=== PATIENT | female | born 1950 | race Caucasian/White ===

== ENCOUNTER 2021-01-14 09:09 | Outpatient (CLI) | payer MEDICARE, OTHER, SELFPAY ==
--- NOTE | 2021-01-14 09:21 | MM_ITS ---
WS: [id number] BILATERAL DIGITAL SCREENING MAMMOGRAPHY WITH CAD CLINICAL INFORMATION: SCREENING HISTORY: Screening mammogram. No current complaints. COMPARISON: and additional mammograms dating back to 2015 TECHNIQUE: Bilateral CC and MLO views. FINDINGS: Scattered fibroglandular densities bilaterally. Stable lobulated density in the right inner breast po sterior depth is unchanged over multiple prior exams dating back to 2014. No suspicious focal mass, a symmetry, calcifications, or architectural distortion. No evidence of malignancy. Punctate calcificat ions. MM/[place] [id number] IMPRESSION: BI-RADS: 2-Benign FOLLOW UP: 1 Year Follow-up Recommend return to annual screening mammography.
== END 2021-01-14 09:10 | disposition home or self-care (01) ==
PROVIDERS: PCP Registered Nurse; Visit Provider Registered Nurse
DX: Z12.31 Encounter for screening mammogram for malignant neoplasm of breast (principal)
CPT/HCPCS: 77067

== ENCOUNTER → 2021-06-22 09:06 | Outpatient (BNVA) | payer MEDICARE, OTHER, SELFPAY | PROVIDERS: PCP Registered Nurse; Visit Provider Registered Nurse | DX: E78.2 Mixed hyperlipidemia (principal) | CPT/HCPCS: 80053; 80061; 85025 ==

== ENCOUNTER → 2021-08-31 08:33 | Outpatient (BNVA) | payer MEDICARE, OTHER, SELFPAY | PROVIDERS: PCP Registered Nurse; Visit Provider Registered Nurse | DX: N39.0 Urinary tract infection, site not specified (principal); R31.9 Hematuria, unspecified | CPT/HCPCS: 81000; 87077; 87086; 87184 ==

== ENCOUNTER 2022-06-09 14:46 | Outpatient (CLI) | payer MEDICARE, OTHER, SELFPAY ==
--- NOTE | 2022-06-09 15:15 | USCV_ITS ---
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 Technologist: YESI [place] [facility] [place]: Atrial fibrillation BP: 122 / 65 HR: 69 Rhythm: Sinus Technical Quality: adequate MEASUREMENTS (Male / Female) Normal Values 2D ECHO LV Diastolic Diameter PLAX 4.4 cm 4.2 - 5.9 / 3.9 - 5.3 cm LV Systolic Diameter PLAX 3.5 cm IVS Diastolic Thickness 0.9 cm 0.6 - 1.0 / 0.6 - 0.9 cm IVS Systolic Thickness 1.4 cm LVPW Diastolic Thickness 1.2 cm 0.6 - 1.0 / 0.6 - 0.9 cm LVPW Systolic Thickness 1.3 cm LVOT Diameter 2.0 cm LV Ejection Fraction 2D Teich 42.4 % LV Ejection Fraction MOD 2C 73.4 % LV Ejection Fraction 2C AL 73.5 % LA Diameter 2.8 cm RA Width 2.8 cm RA Height 4.4 cm Aorta at Sinotubular Diameter 2.6 cm M-MODE MV E Point Septal Separation 0.3 cm DOPPLER AV Peak Velocity 166.0 cm/s LVOT Peak Velocity 138.0 cm/s AV Area Cont Eq vti 2.5 cm squared AV Area Cont Eq pk 2.7 cm squared MV Peak Velocity 94.0 cm/s MV Area PHT 3.3 cm squared Mitral E to A Ratio 1.0 MV E' Velocity 49.0 cm/s Mitral E to MV E' Ratio 13.3 Mitral E to LV E' Lateral Ratio 18.9 Mitral E to LV E' Septal Ratio 10.2 TR Peak Velocity 277.0 cm/s TR Peak Gradient 30.7 mmHg Right Atrial Pressure 5.0 mmHg Pulmonary Artery Systolic Pressu 35.7 mmHg PV Peak Velocity 105.0 cm/s FINDINGS Left Ventricle Normal left ventricular size, systolic function and wall thickness, with no regional wall motion abnormalities. Left ventricular ejection fraction is estimated at 70 %. Normal diastolic function. Right Ventricle Normal right ventricular size and systolic function. Right ventricular systolic pressure 35.7 mmHg. Right Atrium Normal right atrial size. Left Atrium Normal left atrial size. Mitral Valve Mild mitral annular calcification. Mildly thickened mitral valve. No mitral valve stenosis. No mitral valve regurgitation. Aortic Valve Structurally normal trileaflet aortic valve. No aortic valve stenosis. Mild aortic valve regurgitation. Tricuspid Valve Structurally normal tricuspid valve. Trace tricuspid valve regurgitation. Pulmonic Valve Pulmonic valve not well visualized. Pericardium No pericardial effusion. Aorta Normal size aortic root and proximal ascending aorta. IVC Inferior vena cava not visualized. CONCLUSIONS 1. Normal left ventricular size, systolic function and wall thickness, with no regional wall motion abnormalities. Left ventricular ejection fraction is estimated at 70 %. Normal diastolic function. 2. Mild aortic valve regurgitation. 3. Upper normal pulmonary artery pressure. 4. No prior similar studies to compare. Mendy Lindsey MD (Electronically Signed) Final Date: 10 June 2022 08:19 S
== END 2022-06-09 14:47 | disposition home or self-care (01) ==
PROVIDERS: PCP Registered Nurse; Visit Provider Registered Nurse
DX: I48.91 Unspecified atrial fibrillation (principal); I08.3 Combined rheumatic disorders of mitral, aortic and tricuspid valves
CPT/HCPCS: 93306

== ENCOUNTER → 2022-08-29 15:41 | Outpatient (BNVA) | payer MEDICARE, OTHER, SELFPAY | PROVIDERS: PCP Registered Nurse; Visit Provider Registered Nurse | DX: R10.9 Unspecified abdominal pain (principal); R07.81 Pleurodynia; G89.29 Other chronic pain | CPT/HCPCS: 81000 ==

== ENCOUNTER → 2023-02-07 10:14 | Outpatient (BNVA) | payer MEDICARE, OTHER, SELFPAY | PROVIDERS: PCP Registered Nurse; Referring Provider Registered Nurse; Visit Provider Orthopaedic Surgery | DX: M77.8 Other enthesopathies, not elsewhere classified (principal) | CPT/HCPCS: 20610; 73030; 99203; J0702; J3490 ==

== ENCOUNTER → 2023-03-20 14:17 | Outpatient (BNVA) | payer MEDICARE, OTHER, SELFPAY | PROVIDERS: PCP Registered Nurse; Visit Provider Internal Medicine | DX: R07.9 Chest pain, unspecified (principal); J45.909 Unspecified asthma, uncomplicated; I48.91 Unspecified atrial fibrillation; F17.210 Nicotine dependence, cigarettes, uncomplicated | CPT/HCPCS: 93005; 99204 ==

== ENCOUNTER 2023-04-06 07:55 | Outpatient (CLI) | payer MEDICARE, OTHER, SELFPAY ==
[2023-04-06 08:15] VITALS: BMI 19.8
--- NOTE | 2023-04-06 08:16 | NMCV_ITS ---
NM holden perf SPECT r/s* [id number] Hyacinth Hill Age: 72 Gender: F : 1950 Exam Date: 04/06/2023 09:27 Ordering Phys: Kaushal Ngo M.D ([email or web address]) Technologist: SANDER King Exam Location: [facility] Indications: SHORTNESS OF BREATH, CHEST PAIN STRESS TEST Please [facility] IMAGE PROTOCOL Rest/Stress 1 Lexiscan Day Radiopharmaceutical Dose (mCi) Administration Site Administered by Rest: Tc-99m 10.6 IV Jamie Pittman, DISTRIBUTOR CLEANER Sestamibi Stress:Tc-99m 32.6 IV Jamie Pittman, DISTRIBUTOR CLEANER Sestamibi Rest: 06-Apr-2023 60 Discovery 630 Stress: 06-Apr-2023 30 Discovery 630 0.4mg Lexiscan. Images obtained in supine and prone position. SPECT RESULTS Technical Quality: Good Raw Data Analysis: Normal Image Corrections: No attenuation or motion correction applied Summed Stress Score: 4 Summed Rest Score: 8 Summed Difference Score: 0 PERFUSION FINDINGS SPECT images demonstrate homogeneous tracer distribution throughout the myocardium. FUNCTIONAL RESULTS (calculated via Gated SPECT) Stress Image LV EF (%): 82 Stress EDV (mL):71 TID: 1.21 Stress ESV (mL):13 FUNCTIONAL FINDINGS: There is normal left ventricular systolic function. IMPRESSIONS 1. Normal myocardial perfusion imaging with no evidence of ischemia 2. LV systolic function is normal 3. TID ratio is elevated. Kaushal Ngo MD (Electronically Signed) Final Date: 09 April 2023 17:54 S
--- NOTE | 2023-04-06 08:16 | ECG_ITS ---
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 Interpretive Statements NAME OF STUDY: LEXISCAN SESTAMIBI STRESS TEST INDICATION: [Chest Pain; Shortness of Breath, ] Procedure: At the baseline, the blood pressure was 146/61 mmHg with a heart rate of 68 bpm. The electrocardiogram showed normal sinus rhythm, normal axis with normal ST and T's. The Lexiscan was infused over a period of 20 seconds. A total of 0.4 mg of Lexiscan was infused. The stress phase was continued for a total of 5 minutes. Heart rate was at the end of stress phase was 81 bpm and a blood pressure of 136/57 mmHg. The EKG at the peak infusion revealed normal sinus rhythm with no significant ST-T wave changes. Sestamibi was injected 20 seconds after the Lexiscan infusion. Blood pressure at the end of recovery phase was 141/55 mmHg with a heart rate of 79 bpm. Conclusion: 1. Normal EKG response to Lexiscan infusion 2. No Lexiscan induced chest pain or cardiac arrhythmia. 3. Normal blood pressure and heart rate response. 4. Sestamibi/sestamibi perfusion scan pending; see separate report. Electronically Signed On 04-13-2023 15:57:01 CDT by Kaushal Ngo M.D. [email or web address] [id number]
[2023-04-06] MEDS: regadenoson 0.4 Mg/5 ml Syringe IVP (10:04)
[2023-04-06 10:22] VITALS: BP 141/55; PULSE 75
== END 2023-04-06 07:56 | disposition home or self-care (01) ==
LOC: CDL 07:56
PROVIDERS: PCP Registered Nurse; Visit Provider Internal Medicine
DX: R06.02 Shortness of breath (principal); R07.9 Chest pain, unspecified
CPT/HCPCS: 36415; 78452; 93017; 96374; A9500; J2785

== ENCOUNTER → 2023-04-16 10:26 | Outpatient (BNVA) | payer MEDICARE, OTHER, SELFPAY | PROVIDERS: PCP Registered Nurse; Visit Provider Registered Nurse | DX: Z00.00 Encounter for general adult medical examination without abnormal findings (principal); E78.2 Mixed hyperlipidemia; Z12.39 Encounter for other screening for malignant neoplasm of breast; Z12.11 Encounter for screening for malignant neoplasm of colon; M81.0 Age-related osteoporosis without current pathological fracture; Z12.2 Encounter for screening for malignant neoplasm of respiratory organs; Z71.85 Encounter for immunization safety counseling | CPT/HCPCS: 80053; 80061; 85025 ==

== ENCOUNTER 2023-04-27 12:10 | Outpatient (CLI) | payer MEDICARE, OTHER, SELFPAY ==
--- NOTE | 2023-04-27 12:30 | MM_ITS ---
WS: [id number] BILATERAL SCREENING DIGITAL TOMOSYNTHESIS MAMMOGRAM WITH CAD HISTORY: Z12.39 - Encounter for other screening for malignant neoplasm... COMPARISON: 01/14/2021, 09/12/2017 Bilateral CC and MLO views with tomosynthesis and synthetic mammography submitted. Computer aided det ection analyzed. Breast composition: There are scattered areas of fibroglandular density. No suspicious masses, microc alcifications or architectural distortion. Long-term stability lobulated soft tissue mass 3:00 RIGHT breast. Benign calcifications in each breast. MM/[place] [id number] IMPRESSION: BI-RADS: 2-Benign FOLLOW UP: 1 Year Follow-up
--- NOTE | 2023-04-27 13:15 | CT_ITS ---
WS: [id number] LDCT LUNG CANCER SCREENING HISTORY: Lung screening. TECHNIQUE: Axial imaging performed from the apices to 1 cm below the costophrenic angles. Coronal and sagittal reformats are submitted with axial MIP series. All CT scans at [facility] use at least one of these dose optimization techniques: automated exposure control; mA and/or kV adjustment per patient size (includes targeted exams where dose is matched to clinical indication); or iterativ e reconstruction. DLP: 37.01 mGy.cm DIvol: Mean CTDIvol: 0.60 (mGy) COMPARISON: None available. Diagnostic quality: Satisfactory Lungs: Mild dependent changes at the bases. 3 mm subpleural nodule RIGHT lung base. No mass or nodule . No endobronchial lesions. Heart: Normal size heart with no pericardial effusion.. Other findings: Mild atherosclerosis aorta. Normal size pulmonary artery. Low-attenuation mass in the LEFT lobe of liver measures 2.0 x 1.2 cm. No adrenal mass. No destructive bone lesions. CT/CT lung screening [id number] IMPRESSION: LUNG-RADS: 1S-Negative with Significant Findings FOLLOW UP: 12 Month: Continue annual screening with LDCT OTHER FINDINGS (S MODIFIER): Indeterminate low-attenuation mass LEFT lobe of th e liver measures 2.0 x 1.2 cm. Differential includes cyst, hemangioma and liver lesion. Recommend follow-up CT abdomen with IV contrast.
--- NOTE | 2023-04-27 14:00 | XR_ITS ---
WS: [id number] DEXA (DUAL ENERGY X-RAY ABSORPTIOMETRY) Bone mineral density was performed using a [email or web address] machine. HISTORY: M81.0 - Age-related osteoporosis without current pathology... COMPARISON: None available. Lumbar spine BMD (L1-L4): 1.147 g/cm2 T score: -0.3 Z score: 1.9 Total hip BMD: Left: 0.755 g/cm2. T score: -2.0 Z score: 0.0 Right: 0.788 g/cm2. T score: -1.7 Z score: 0.3 10 year probability of a major osteoporotic fracture is 23.9%. Moderate LEFT curvature lumbar spine. XR/XR DEXA axial skeleton* [id number] IMPRESSION: OSTEOPENIA based upon the WHO classification for females.
== END 2023-04-27 12:11 | disposition home or self-care (01) ==
PROVIDERS: PCP Registered Nurse; Visit Provider Registered Nurse
DX: Z00.00 Encounter for general adult medical examination without abnormal findings (principal); M81.0 Age-related osteoporosis without current pathological fracture; Z12.31 Encounter for screening mammogram for malignant neoplasm of breast; Z12.2 Encounter for screening for malignant neoplasm of respiratory organs; F17.210 Nicotine dependence, cigarettes, uncomplicated
CPT/HCPCS: 71271; 77063; 77067; 77080

== ENCOUNTER 2023-05-08 09:15 | Outpatient (CLI) | payer MEDICARE, OTHER, SELFPAY ==
--- NOTE | 2023-05-08 09:30 | CTR_ITS ---
PROCEDURE INFORMATION: Exam: CT Abdomen With Contrast Exam date and time: 05/08/2023 9:37 AM Age: 72 years old Clinical indication: Condition or disease; Other: Hepatomegaly; Additional info: R16.0 - hepatomegaly, not elsewhere classified TECHNIQUE: Imaging protocol: Computed tomography of the abdomen with contrast. Radiation optimization: All CT scans at this facility use at least one of these dose optimization techniques: automated exposure control; mA and/or kV adjustment per patient size (includes targeted exams where dose is matched to clinical indication); or iterative reconstruction. Contrast material: OMNI 350; Contrast volume: 95 ml; Contrast route: INTRAVENOUS (IV); REPORTING DATA: Count of CT and Cardiac NM exams in prior 12 months: This patient has received 2 known CTs and 0 known cardiac nuclear medicine studies in the 12 months prior to the current study. COMPARISON: CT lung screening [id number] 04/27/2023 12:31 PM RADIATION DOSE METRICS: Total DLP (mGy-cm): 606.79 FINDINGS: Lungs: Mild bibasilar linear scarring versus atelectasis. Stable sub 6 mm pulmonary micronodules at the subpleural right lower lobe. Diaphragm: Small hiatal hernia. Liver: Elongated right lobe may be on the basis of Reidel morphology. 2.2 cm long bilobed nonenhancing fluid density simple left hepatic cyst versus 2 adjacent simple cysts. Gallbladder and bile ducts: Normal. No calcified stones. No ductal dilation. Pancreas: Normal without ductal dilatation. Spleen: Normal. Adrenal glands: Normal. No mass. Kidneys and ureters: Right renal cysts are present, as well as other bilateral subcentimeter hypodensities which are too small to characterize. Otherwise unremarkable. Stomach and bowel: Visualized stomach and bowel are unremarkable. No obstruction. No mucosal thickening. Intraperitoneal space: Unremarkable. No free air. No significant fluid collection. Vasculature: Moderate aortoiliac atherosclerotic calcification without aortic aneurysm. Lymph nodes: Unremarkable. No enlarged lymph nodes. Bones/joints: No acute fracture. Levoconvex lumbar spine curvature. Degenerative changes along the spine and imaged right sacroiliac joint, moderate at L4-5 on the right and L5-S1 on the left. Mild left lateral subluxation of L4 on L5 and milder right lateral subluxation of L2 on L3. Soft tissues: Unremarkable. CT/CT abdomen w con* [id number] IMPRESSION: 1. Bilobed simple cyst versus 2 adjacent simple cysts correspond to the left liver finding of concern. 2. Atherosclerosis.
[2023-05-08] MEDS: iohexol 350 mg/mL 500 mL Btl (per mL) IV (09:43)
== END 2023-05-08 09:16 | disposition home or self-care (01) ==
LOC: RAD 09:16
PROVIDERS: PCP Registered Nurse; Visit Provider Registered Nurse
DX: R16.0 Hepatomegaly, not elsewhere classified (principal); K76.89 Other specified diseases of liver; I70.0 Atherosclerosis of aorta
CPT/HCPCS: 74160; Q9967

== ENCOUNTER → 2023-05-25 10:17 | Outpatient (BNVA) | payer MEDICARE, OTHER, SELFPAY | PROVIDERS: PCP Registered Nurse; Visit Provider Internal Medicine | DX: I48.91 Unspecified atrial fibrillation (principal); Z79.01 Long term (current) use of anticoagulants | CPT/HCPCS: 99214 ==

== ENCOUNTER → 2023-10-26 13:57 | Outpatient (BNVA) | payer MEDICARE, OTHER, SELFPAY | PROVIDERS: PCP Registered Nurse; Visit Provider Registered Nurse | DX: J06.9 Acute upper respiratory infection, unspecified (principal) | CPT/HCPCS: 87400; 87426 ==

== ENCOUNTER → 2023-12-18 08:18 | Outpatient (BNVA) | payer MEDICARE, OTHER, SELFPAY | PROVIDERS: PCP Registered Nurse; Visit Provider Nurse Practitioner Family | DX: I48.0 Paroxysmal atrial fibrillation (principal); I10 Essential (primary) hypertension; F17.210 Nicotine dependence, cigarettes, uncomplicated; Z79.01 Long term (current) use of anticoagulants | CPT/HCPCS: 99214 ==

== ENCOUNTER 2023-12-28 08:51 | Outpatient (CLI) | payer MEDICARE, OTHER, SELFPAY ==
--- NOTE | 2023-12-28 09:30 | USCV_ITS ---
Hyacinth Hill Age: 73 Gender: F : 1950 Exam Date: 12/28/2023 09:31 Ordering Phys: Jeanne Duncan Technologist: CT Exam Location: [facility] – [place] Indication: stenosis Risk Factors: Previous Vascular Surgery: Right Brachial BP: / Left Brachial BP: / Right Left Velocity (cm/s) Spectral Plaque Velocity (cm/s) Spectral Plaque Syst/Diast Broadening Syst/Diast Broadening 71.50/ Prox CCA 82.00 / 65.90/ Mid CCA 73.30 / 72.50/ Distal CCA 83.50 / 55.50/ Prox ICA 96.40 / 109.80/ Mid ICA 88.20 / 61.00/ Distal ICA 84.70 / 85.70 ECA 151.90 Marked 1.50 ICA/CCA 1.20 Antegrade Vertebral Antegrade 52.80/ cm/s 26.20/ cm/s Bi Subclavian Tri 209.0 134.6 0 0 CONCLUSIONS Right ICA stenosis <50%. Moderate atheromatous plaque right carotid bulb/ICA. Left ICA stenosis <50%. Moderate atheromatous plaque left carotid bulb/ICA. Normal antegrade Doppler flow noted in the right vertebral artery. Normal antegrade Doppler flow noted in the left vertebral artery. Rashaad Schilling MD (Electronically Signed) Final Date: 28 December 2023 14:37 S
== END 2023-12-28 08:52 | disposition home or self-care (01) ==
LOC: RAD 08:51
PROVIDERS: PCP Registered Nurse; Visit Provider Nurse Practitioner Family
DX: I65.23 Occlusion and stenosis of bilateral carotid arteries (principal)
CPT/HCPCS: 93880

== ENCOUNTER → 2024-03-18 11:20 | Outpatient (BNVA) | payer MEDICARE, OTHER, SELFPAY | PROVIDERS: PCP Registered Nurse; Visit Provider Registered Nurse | DX: N39.0 Urinary tract infection, site not specified (principal); I48.0 Paroxysmal atrial fibrillation; I48.91 Unspecified atrial fibrillation; I10 Essential (primary) hypertension; E55.9 Vitamin D deficiency, unspecified; E53.8 Deficiency of other specified B group vitamins; Z79.899 Other long term (current) drug therapy | CPT/HCPCS: 80053; 80061; 81000; 82306; 82607; 85025; 87077; 87086; 87184; 93005 ==

== ENCOUNTER → 2024-05-27 10:57 | Outpatient (BNVA) | payer MEDICARE, OTHER, SELFPAY | PROVIDERS: PCP Registered Nurse; Visit Provider Internal Medicine Cardiovascular Disease | DX: E78.2 Mixed hyperlipidemia (principal); I48.0 Paroxysmal atrial fibrillation; I10 Essential (primary) hypertension; Z79.01 Long term (current) use of anticoagulants; Z87.891 Personal history of nicotine dependence | CPT/HCPCS: 99214 ==

== ENCOUNTER 2024-06-06 02:31 | Inpatient (IN) | payer MEDICARE, OTHER, SELFPAY ==
[2024-06-06] VITALS (33 sets, daily range): BP systolic 81–191; BP diastolic 31–126; PULSE 50–89; RESP 14–26; TEMP 35.7–37.4; O2SAT 83–100; BMI 24.3; BMI 23.1
--- NOTE | 2024-06-06 02:35 | CTR_ITS ---
PROCEDURE INFORMATION: Exam: CT Head Without Contrast Exam date and time: 06/06/2024 2:34 AM Age: 73 years old Clinical indication: Altered mental status/memory loss and weakness, extremity; Additional info: Encephalopathy, altered mental status TECHNIQUE: Imaging protocol: Computed tomography of the head without contrast. Radiation optimization: All CT scans at this facility use at least one of these dose optimization techniques: automated exposure control; mA and/or kV adjustment per patient size (includes targeted exams where dose is matched to clinical indication); or iterative reconstruction. COMPARISON: No relevant prior studies available. RADIATION DOSE METRICS: Total DLP (mGy-cm): 1072.52 FINDINGS: Brain: Normal. No hemorrhage. Unremarkable white matter. No mass effect. Cerebral ventricles: No ventriculomegaly. Paranasal sinuses: Visualized sinuses are unremarkable. No fluid levels. Mastoid air cells: Visualized mastoid air cells are well aerated. Bones: Unremarkable. No acute fracture. Soft tissues: Unremarkable. CT/CT head wo con* [id number] IMPRESSION: No acute intracranial abnormality.
--- NOTE | 2024-06-06 02:35 | XRR_ITS ---
PROCEDURE INFORMATION: Exam: XR Chest Exam date and time: 06/06/2024 5:31 AM Age: 73 years old Clinical indication: Dyspnea; Additional info: Weakness TECHNIQUE: Imaging protocol: Radiologic exam of the chest. Views: 1 view. COMPARISON: CT lung screening [id number] 04/27/2023 12:31 PM FINDINGS: Lungs: There may be mild central vascular congestion. No focal consolidation is appreciated. Pleural spaces: Unremarkable. No pleural effusion. No pneumothorax. Heart/Mediastinum: The heart is slightly enlarged. There is calcified plaque involving the aorta. Bones/joints: Unremarkable. XR/XR chest 1V portable [id number] IMPRESSION: 1. Mild cardiomegaly with possible mild vascular congestion. No focal consolidation identified.
--- NOTE | 2024-06-06 02:36 | ECG_ITS ---
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 Measurements Intervals Supai Rate: 79 P: 68 CT: 188 QRS: 33 QRSD: 120 T: 21 QT: 421 QTc: 485 Interpretive Statements SINUS RHYTHM WITH OCCASIONAL SUPRAVENTRICULAR PREMATURE COMPLEXES MODERATE INTRAVENTRICULAR CONDUCTION DELAY [110+ ms QRS DURATION] Compared to ECG 06/06/2024 02:44:56 Intraventricular conduction delay now present First degree AV block no longer present Incomplete right bundle-branch block no longer present Electronically Signed On 06-06-2024 7:51:32 CDT by Kaushal Ngo M.D. [id number]
--- NOTE | 2024-06-06 02:43 | ED_ITS ---
HPI - Altered Mental Status 2 General: Chief Complaint: Altered Mental Status Stated Complaint: Resp Distress Time Seen by Provider: 06/06/24 02:35 History of Present Illness: 73-year-old female with a history of atr ial fibrillation, hypertension, hyperlipidemia and anticoagulation who presents to the emergency room after being found unresponsive at home. She gone to bed about 8 PM. Family noted she had gone to the bathroom and seemed normal at about 12:30 AM. Apparently as she was coming back from the bathroom she collapsed over a pet fence in the home. EMS reports that when they got there she was having some sort of posturing motions and is unresponsive to pain. Holding eyes shut. Hypertensive. Related Data Home Medications Medication Instructions Recorded Confirmed tramadol 50 mg tablet 25 - 50 mg PO DAILY PRN 05/27/24 Previous Rx's Medication Instructions Recorded albuterol sulfate 90 mcg/actuation 2 puff inhalation Q6H PRN 06/23/21 aerosol inhaler (ProAir HFA) bronchospasm #6.7 grams pravastatin 40 mg tablet See Rx Instructions .Route 07/02/23 .COMPLEX #90 tabs conjugated estrogens 0.625 mg See Rx Instructions .Route 08/02/23 tablet (Premarin) .COMPLEX #90 tabs levalbuterol HCl 1.25 mg/0.5 mL 1.25 mg (0.5 mL) inhalation Q4H 7 10/26/23 solution for nebulization days #30 ea tiotropium bromide 2.5 See Rx Instructions .Route 01/30/24 mcg/actuation mist for inhalation .COMPLEX #4 grams (Spiriva Respimat) apixaban 5 mg tablet (Eliquis) See Rx Instructions .Route 03/18/24 .COMPLEX #180 tabs cholecalciferol (vitamin D3) 1,250 1,250 mcg PO .WEEKLY 90 days #12 03/20/24 mcg (50,000 unit) capsule caps metoprolol tartrate 25 mg tablet See Rx Instructions .Route 04/03/24 .COMPLEX #90 tabs valsartan 80 mg tablet 80 mg PO DAILY #90 tabs 05/12/24 fenofibrate nanocrystallized 145 See Rx Instructions .Route 05/16/24 mg tablet .COMPLEX #90 tabs flecainide 100 mg tablet 100 mg PO Q12H #180 tabs 05/27/24 Allergies Allergy/AdvReac Type Severity Reaction Status Date / Time No Known Allergies Allergy Verified 05/27/24 11:18 Review of Systems 2 Narrative: Unable to obtain secondary to altered mental status. PFSH ED 2 PFSH: Medical History Anticoagulation adequate with anticoagulant therapy Hypertension Chronic lumbar pain Asthma Hyperlipidemia On hormone replacement therapy Surgical History History of tonsillectomy History of hysterectomy History of tubal ligation 1974 Family History Brother Heart disease Mother Cancer Father Cancer Social History Smoking and tobacco/nicotine status: former use of tobacco/nicotine Alcohol intake: current Alcohol intake frequency: holidays/special occasions only Alcohol type: beer Substance/Drug Use: never Adopted: No Caregiver/support person: No Lives independently: No Household members: spouse Marital status: service: No Current occupational status: retired Physical Exam 2 Narrative: General: Does not respond to painful stimuli. Skin: Warm, dry Head: Normocephalic, atraumatic. Neck: Supple, trachea midline. Eye: Extraocular movements are intact. Ears, nose, mouth and throat: Dry oral mucosa. Cardiovascular: Regular rate and rhythm, Normal peripheral perfusion. She does have some brief pauses. Respiratory: Lungs are clear to auscultation, respirations are non-labored, breath sounds are equal, Symmetrical chest wall expansion. Gastrointestinal: Soft, Non distended, Normal bowel sounds. Musculoskeletal: no deformity. Neurological: Not Alert and oriented, patient is having some posturing type movements. She is writhing in the bed at times. Pupils are equal about 4 mm and reactive to light. She has some slow horizontal nystagmus. Psychiatric: unable to assess. Course 2 Vital Signs: Vital signs: Vital Signs Temperature 96.3 F L 06/06/24 03:07 Pulse Rate 61 06/06/24 05:02 Respiratory Rate 22 H 06/06/24 05:02 Blood Pressure 104/67 06/06/24 05:02 Pulse Oximetry 100 06/06/24 05:02 Oxygen Delivery Me thod Oxymask 06/06/24 05:02 Oxygen Flow Rate 10 08/16/24 05:02 MDM - Altered Mental Status Medical Decision Making Medical decision making: Differential diagnosis for patient with focal neurologic deficit(s) includes but not limited to and based on the above HPI, review of systems and physical exam: ischemic stroke, hemorrhagic stroke and embolic stroke secondary to atrial fibrillation), TIA, Villagomez's palsey, metabolic encephalopathy with previous stroke. Orders placed to evaluate differential diagnosis based on the above differential, HPI and physical exam EKG: Time 2:44 AM. Rate 75. Normal sinus rhythm, No ST-T changes, no ectopy, first degree AV Block, EP Interpretation. This was reviewed and interpreted by myself the ER physician at 2:46 AM Repeat EK a.m. Rate 65. Frequent PVCs/bigeminy. Normal sinus rhythm, No ST-T changes, normal OH & QRS intervals, This was reviewed and interpreted by myself the ER physician at 403 a.m. Frequent PVCs are now present Lab Review: Laboratory results were reviewed and interpreted by myself the emergency room physician. Lab work is fairly unremarkable at this time. Some leukocytosis with a white count of 15,000. Hemoglobin is 11.7. BUN and creatinine are 19 and 1. Alcohol and drug screen are negative. Initial troponin is negative. Urinalysis is negative. CT head: No acute intracranial process. no intracranial hemorrhage, no evidence of infarct. no evidence of acute fracture.This was reviewed and interpreted by myself the ER physician. CTA of the head and neck: Limited study secondary motion artifact. No obvious occlusions are identified. No mass. This was reviewed and interpreted by myself the emergency room physician. I also reviewed the radiology report. I reviewed the patient's medical record. Reexamination: I have reexamined the patient several times. She seems to be more active and moving more. She continues to have some posturing type behaviors. She opens her eyes spontaneously at times. She had some vomiting. She had some bradycardia and bradycardia down into the 30s and required atropine but now has improved. Consultation: I consulted Dr. Eli within the first 25 minutes of patient's presentation as concern for stroke. Patient is on Eliquis so could not receive TNKase. Unclear etiology. She recommends 1 g of Keppra 1000 mL normal saline bolus. Both of which have been given. She will evaluate the patient this morning. Consultation: I spoke with Dr. Phillips who is on-call for the hospitalist service and is admitting the patient to the ICU. He evaluated the patient in the emergency room. Assessment and plan: Metabolic encephalopathy Bradycardia Very difficult to determine what the etiology of this is, but I have concern this may be some sort of brainstem/midline stroke. Also could be a seizure with prolonged postictal state. Also have some concern with her having these long episodes of bradycardia but she could have had some sort of cardiac event and now has hypoxemic ischemic encephalopathy. Even meningitis could be in this differential and Dr. Eli likely will do an LP this morning. ?IV Keppra ? Normal saline bolus ? Patient has required atropine for bradycardia -I discussed the patient with the hospitalist on-call who is admitting the patient. - Discussed findings and plan with patient. Answered any questions. - All laboratory values were reviewed and interpreted personally by myself, the ER physician - All imaging was reviewed and interpreted personally by myself, the ER physician. - Evaluation and treatment of this problem were appropriate in the emergency setting -I spent a total of >60 minutes of critical care time managing the patient, independent of any other practitioner. -The time involved in the performance of separately reportable procedures was not counted towards critical care time. Lab Data 06/06/24 03:02 06/06/24 03:[address] 06/06/24 02:35 IMPRESSION: No acute intracranial abnormality. Head/Neck CTA 06/06/24 03:02 IMPRESSION: No large vessel stenosis or occlusion. IMPRESSION: Limited exam secondary to motion artifact. No obvious occlusion is identified. Recommend repeating exam when patient is better able to hold still. REFERENCES: NASCET CRITERIA. The degree of stenosis in the cervical segment of the internal carotid artery is based on NASCET criteria. Normal is no stenosis. Mild is less than 50% stenosis. Moderate is 50-69% stenosis. Severe is 70% to 99% stenosis. Total occlusion is no detectable patent lumen. Laboratory Results WBC 15.34 10^3/uL (3.29-11.43) H 06/06/24 03:02 RBC 4.01 10^6/uL (3.85-5.65) 06/06/24 03:02 Hgb 11.70 g/dL (11.27-16.99) 06/06/24 03:02 Hct 36.9 % (36-47) 06/06/24 03:02 MCV 92.0 fl (85-98) 06/06/24 03:02 MCH 29.2 pg (27-33) 06/06/24 03:02 MCHC 31.7 g/dL (30-55) 06/06/24 03:02 RDW 13.7 % (12.1-15.1) 06/06/24 03:02 Plt Count 364 10^3/cmm (157-399) 06/06/24 03:02 MPV 11.6 fL (7.4-10.4) H 06/06/24 03:02 Neut % (Auto) 66.0 % 06/06/24 03:02 Lymph % (Auto) 21.2 % 06/06/24 03:02 [place] % (Auto) 10.5 % 06/06/24 03:02 Eos % (Auto) 1.4 % 06/06/24 03:02 Baso % (Auto) 0.5 % 06/06/24 03:02 Neut # (Auto) 10.13 10^3/uL (1.8-7.7) H 06/06/24 03:02 Lymph # (Auto) 3.3 10^3/uL (0.8-4.8) 06/06/24 03:02 [place] # (Auto) 1.6 10^3/uL (0.2-0.9) H 06/06/24 03:02 Eos # (Auto) 0.2 10^3/uL (0.0-0.8) 06/06/24 03:02 Baso # (Auto) 0.1 10^3/uL (0.0-0.1) 06/06/24 03:02 Nucleated RBC % (auto) 0 % 06/06/24 03:02 Nucleated RBCs # 0.0 /100WBC 06/06/24 03:02 PT 14.60 SECONDS (12.1-14.9) 06/06/24 03:02 INR 1.10 (0.8-1.2) 06/06/24 03:02 APTT 25.7 SECONDS (23.9-36.7) 06/06/24 03:02 Specimen Type Arterial 06/06/24 02:45 Sample Site Radial, right 06/06/24 02:45 ABG pH 7.38 (7.35-7.45) 06/06/24 02:45 ABG pCO2 41.2 mmHg (35-45) 06/06/24 02:45 ABG pO2 43.8 mmHg (80.0-100.0) L 06/06/24 02:45 ABG HCO3 24.4 mmol/L (22-26) 06/06/24 02:45 ABG O2 Saturation 73.3 06/06/24 02:45 ABG Base Excess -0.8 mmol/L (-2.0-2.0) 06/06/24 02:45 Compa Test Pos 06/06/24 02:45 A-a O2 Gradient 7.2 mmHg (5-10) 06/06/24 02:45 Hematocrit 36.5 % (37-47) L 06/06/24 02:45 Hgb O2 Saturation 71.9 % (95-100) L 06/06/24 02:45 Carboxyhemoglobin 0.8 %THgb (0.4-20.1) 06/06/24 02:45 Methemoglobin 1.2 % (0.4-1.5) 06/06/24 02:45 Total Hemoglobin 11.9 g/dL (12-16) L 06/06/24 02:45 Sodium 141.0 mmol/L (131-143) 06/06/24 02:45 Potassium 3.9 mmol/L (3.5-5.0) 06/06/24 02:45 Glucose 171.0 mg/dL (70-115) H 06/06/24 02:45 Ionized Calcium 1.3 mmol/L (1.1-1.4) 06/06/24 02:45 O2 Delivery Device Nc 06/06/24 02:45 O2 Liters/Min 4.0 % 06/06/24 02:45 Lockstitch Pocket Setter ID Cl 06/06/24 02:45 Sodium 140 mmol/L (136-145) 06/06/24 03:02 Potassium 4.6 mmol/L (3.5-5.1) 06/06/24 03:02 Chloride 103 mmol/L (98-107) 06/06/24 03:02 Carbon Dioxide 23 mmol/L (22-29) 06/06/24 03:02 Anion Gap 18.6 (5-19) 06/06/24 03:02 BUN 19 mg/dL (8-23) 06/06/24 03:02 Creatinine 1.0 mg/dL (0.5-0.9) H 06/06/24 03:02 GFR Calculation Not Reportable 06/06/24 03:02 Glucose 206 mg/dL (65-115) H 06/06/24 03:02 Calculated Osmolality 298 mOsm/kg (285-295) H 06/06/24 03:02 Lactic Acid 2.8 mmol/L (0.5-2.2) H 06/06/24 03:02 Calcium 9.3 mg/dL (8.5-10.5) 06/06/24 03:02 Total Bilirubin 0.2 mg/dL (0.15-1.2) 06/06/24 03:02 AST 107 U/L (0-32) H 06/06/24 03:02 ALT 57 U/L (0-33) H 06/06/24 03:02 Alkaline Phosphatase 61 U/L (35-105) 06/06/24 03:02 Troponin T Baseline 12 ng/L (0-10) H 06/06/24 03:02 C-Reactive Protein 7.6 mg/L (0.0-4.9) H 06/06/24 03:02 Total Protein 7.7 g/dL (6.6-8.7) 06/06/24 03:02 Albumin 4.2 g/dL (3.5-5.2) 06/06/24 03:02 Globulin 3.5 g/dL (1.3-4.6) 06/06/24 03:02 Urine Color Yellow (Yellow) 06/06/24 03:02 Urine Appearance Clear (CLEAR) 06/06/24 03:02 Urine pH 8.0 (5-7) A 06/06/24 03:02 Ur Specific [place] 1.012 (1.005-1.030) 06/06/24 03:02 Urine Protein 1+ (Negative) A 06/06/24 03:02 Urine Glucose (UA) Negative (Normal) 06/06/24 03:02 Urine Ketones Negative (Negative) 06/06/24 03:02 Urine Blood Negative (Negative) 06/06/24 03:02 Urine Nitrate Negative (Negative) 06/06/24 03:02 Urine Bilirubin Negative (Negative) 06/06/24 03:02 Urine Urobilinogen 1.0 mg/dL (Negative) 06/06/24 03:02 Ur Leukocyte Esterase Negative (Negative) 06/06/24 03:02 Urine RBC 0-2 /hpf (0-2) 06/06/24 03:02 Urine WBC 0-5 /hpf (0-5) 06/06/24 03:02 Ur Squamous Epith Cells 0-5 /hpf (0-5) 06/06/24 03:02 Amorphous Sediment Not Reportable 06/06/24 03:02 Urine Bacteria None seen /hpf (NONE) 06/06/24 03:02 Hyaline Casts 2.87 /lpf 06/06/24 03:02 Urine Opiates Screen Negative ng/mL (Negative) 06/06/24 03:02 Ur Barbiturates Screen Negative ng/mL (Negative) 06/06/24 03:02 Ur Phencyclidine Scrn Negative ng/mL (Negative) 06/06/24 03:02 Ur Amphetamines Screen Negative ng/mL (Negative) 06/06/24 03:02 U Benzodiazepines Scrn Negative ng/mL (Negative) 06/06/24 03:02 Urine Cocaine Screen Negative ng/mL (Negative) 06/06/24 03:02 U Marijuana (THC) Screen Negative ng/mL (Negative) 06/06/24 03:02 Ethyl Alcohol < 10 mg/dL (0-10) 06/06/24 03:02 All radiology interpretation(s) finalized by discharge Discharge Plan Discharge Patient Disposition: Admitted As Inpatient Admit Provider: Jan Phillips Clinical Impression: Acute metabolic encephalopathy, Cerebrovascular event, Bradycardia Condition: Stable Coding Level of Care Code ED [employer] Food Supervisor for Chris Webster
[2024-06-06 02:52] LABS: ABG PCO2 41.2 mmHg (35-45); ABG PH Result 7.38 (7.35-7.45); Alveolar-Arterial Oxygen Gradi 7.2 mmHg (5-10); Arterial Blood Gas Hematocrit 36.5 % (37-47); Base Excess ABG -0.8 mmol/L (-2.0-2.0); Blood Gas Allen Test Pos; Blood Gas Sample Type Arterial; Carboxyhemoglobin 0.8 %THgb (0.4-20.1); HCO3 ABG 24.4 mmol/L (22-26); HGB O2 Sat 71.9 % (95-100); Ionized Calcium Level - ABG 1.3 mmol/L (1.1-1.4); Methemoglobin 1.2 % (0.4-1.5); Oxygen Saturation ABG 73.3; PO2 ABG 43.8 mmHg (80.0-100.0); Potassium Level - ABG 3.9 mmol/L (3.5-5.0); Total Hemoglobin 11.9 g/dL (12-16)
[2024-06-06 02:53] LABS: Blood Gas Operator Identificat CL; Blood Gas Sample Site Radial, right; Oxygen Device NC
--- NOTE | 2024-06-06 03:02 | CTR_ITS ---
PROCEDURE INFORMATION: Exam: CTA Head With Contrast, Arteriography Exam date and time: 06/06/2024 3:23 AM Age: 73 years old Clinical indication: Injury or trauma; Other: Poss stroke, found down; Blunt trauma; Head; Additional info: Possible stroke TECHNIQUE: Imaging protocol: Computed tomographic angiography of the head with contrast. Exam focused on the arteries. 3D rendering (Not supervised by radiologist): MIP and/or 3D reconstructed images were created by the technologist. Radiation optimization: All CT scans at this facility use at least one of these dose optimization techniques: automated exposure control; mA and/or kV adjustment per patient size (includes targeted exams where dose is matched to clinical indication); or iterative reconstruction. Contrast material: OMNI 350; Contrast volume: 100 ml; Contrast route: INTRAVENOUS (IV); COMPARISON: CT head wo con* [id number] 06/06/2024 3:23 AM RADIATION DOSE METRICS: Total DLP (mGy-cm): 378.37 FINDINGS: ANTERIOR CIRCULATION: Right internal carotid artery: Intracranial segment is patent with no significant stenosis. No aneurysm. Right middle cerebral artery: No occlusion or significant stenosis. No aneurysm. Right anterior cerebral artery: No occlusion or significant stenosis. No aneurysm. Left internal carotid artery: Intracranial segment is patent with no significant stenosis. No aneurysm. Left middle cerebral artery: No occlusion or significant stenosis. No aneurysm. Left anterior cerebral artery: No occlusion or significant stenosis. No aneurysm. POSTERIOR CIRCULATION: Right vertebral artery: No occlusion or significant stenosis. No aneurysm. Left vertebral artery: No occlusion or significant stenosis. No aneurysm. Basilar artery: No occlusion or significant stenosis. No aneurysm. Right posterior cerebral artery: No occlusion or significant stenosis. No aneurysm. Left posterior cerebral artery: No occlusion or significant stenosis. No aneurysm. The left posterior cerebral artery is primarily supplied via the anterior circulation. Brain: No definite mass, mass effect, or midline shift. Cerebral ventricles: No ventriculomegaly. Bones/joints: Unremarkable. No acute fracture. Soft tissues: Unremarkable. PROCEDURE INFORMATION: Exam: CTA Neck With Contrast Exam date and time: 06/06/2024 3:23 AM Age: 73 years old Clinical indication: Injury or trauma; Other: Poss stroke, found down; Blunt trauma; Head; Additional info: Possible stroke TECHNIQUE: Imaging protocol: Computed tomographic angiography of the neck with contrast. Exam focused on the cervical segments of the vasculature. 3D rendering (Not supervised by radiologist): MIP and/or 3D reconstructed images were created by the technologist. Radiation optimization: All CT scans at this facility use at least one of these dose optimization techniques: automated exposure control; mA and/or kV adjustment per patient size (includes targeted exams where dose is matched to clinical indication); or iterative reconstruction. Contrast material: OMNI 350; Contrast volume: 100 ml; Contrast route: INTRAVENOUS (IV); COMPARISON: CT head wo con* [id number] 06/06/2024 3:23 AM RADIATION DOSE METRICS: Total DLP (mGy-cm): 378.37 FINDINGS: Right common carotid artery: Moderately limited secondary to motion artifact. No obvious occlusion. Recommend repeat exam when patient can hold still. Right internal carotid artery: Moderately limited secondary to motion artifact. No obvious occlusion. Recommend repeat exam when patient is able to hold still. Right external carotid artery: Moderately limited secondary to patient motion. No obvious occlusion. Recommend repeat exam when patient is better able to hold still. Left common carotid artery: Moderately limited secondary to motion artifact. No obvious occlusion identified. Recommend repeat exam when patient is better able to hold still. Left internal carotid artery: Moderately limited secondary to motion artifact. No obvious occlusion identified. Recommend repeat exam when patient is better able to hold still. Left external carotid artery: Moderately limited secondary to motion artifact. No obvious occlusion identified. Recommend repeat exam when patient is better able to hold still. Right vertebral artery: Motion artifact limits evaluation of a short segment of the proximal right vertebral artery. Otherwise, the right vertebral artery is widely patent. The right vertebral artery is dominant. Left vertebral artery: The proximal left vertebral artery is not well visualized given its small size and motion artifact. The mid and distal left vertebral artery is extremely small but appears to be patent. Soft tissues: Normal. No significant soft tissue swelling. Bones/joints: No acute fracture. CT/CT angio headneck* [id number] IMPRESSION: No large vessel stenosis or occlusion. IMPRESSION: Limited exam secondary to motion artifact. No obvious occlusion is identified. Recommend repeating exam when patient is better able to hold still. REFERENCES: NASCET CRITERIA. The degree of stenosis in the cervical segment of the internal carotid artery is based on NASCET criteria. Normal is no stenosis. Mild is less than 50% stenosis. Moderate is 50-69% stenosis. Severe is 70% to 99% stenosis. Total occlusion is no detectable patent lumen.
[2024-06-06 03:09] LABS: Basophils # 0.1 10^3/uL (0.0-0.1); Basophils % 0.5 %; Eosinophils # 0.2 10^3/uL (0.0-0.8); Eosinophils % 1.4 %; Hematocrit 36.9 % (36-47); Lymphocytes # 3.3 10^3/uL (0.8-4.8); Lymphocytes % 21.2 %; Mean Corpuscular HGB Conc 31.7 g/dL (30-55); Mean Corpuscular Hemoglobin 29.2 pg (27-33); Mean Platelet Volume 11.6 fL (7.4-10.4); Monocytes # 1.6 10^3/uL (0.2-0.9); Monocytes % 10.5 %; Neutrophils # 10.13 10^3/uL (1.8-7.7); Nucleated Red Blood Cells % 0 %; Platelet Count 364 10^3/cmm (157-399); Red Blood Count 4.01 10^6/uL (3.85-5.65); Red Cell Distribution Width 13.7 % (12.1-15.1); White Blood Count 15.34 10^3/uL (3.29-11.43)
[2024-06-06] MEDS: levETIRAcetam 1,000 MG/100 ML PREMIX 400 MG IV (03:13)
[2024-06-06 03:17] LABS: Bilirubin Urine Negative (Negative); Blood Urine Negative (Negative); Glucose Urine UA Negative (Normal); Ketones Urine Negative (Negative); Leukocyte Esterase Urine Negative (Negative); Nitrate Urine Negative (Negative); Protein Urine 1+ (Negative); Specific Gravity, Urine 1.012 (1.005-1.030); Urine Appearance Clear (CLEAR); Urine Color Yellow (Yellow)
[2024-06-06 03:22] LABS: Amphetamines Screen Urine Negative (Negative); Bacteria Urine None Seen /hpf; Barbiturates Screen Urine Negative (Negative); Benzodiazepines Screen Urine Negative (Negative); Cocaine Screen Urine Negative (Negative); Hyaline Casts Urine 2.87 /lpf; Opiate Screen Urine Negative (Negative); PCP Screen Urine Negative (Negative); Partial Thromboplastin Time 25.7 SECONDS (23.9-36.7); RBC Urine 0-2 /hpf (0-2); Squamous Epithelial Cell Urine 0-5 /hpf (0-5); THC Screen Urine Negative (Negative); WBC Urine 0-5 /hpf (0-5)
[2024-06-06 03:27] LABS: Troponin(5th) Baseline 12 ng/L (0-10)
[2024-06-06 03:30] LABS: Alanine Aminotransferase 57 U/L (0-33); Albumin Level 4.2 g/dL (3.5-5.2); Alkaline Phosphatase 61 U/L (35-105); Anion Gap 18.6 (5-19); Aspartate Amino Transferase 107 U/L (0-32); Blood Urea Nitrogen 19 mg/dL (8-23); C Reactive Protein 7.6 mg/L (0.0-4.9); Calcium 9.3 mg/dL (8.5-10.5); Carbon Dioxide 23 mmol/L (22-29); Chloride 103 mmol/L (98-107); Creatinine Clr Calc Pharmacy 41.5842; Globulin 3.5 g/dL (1.3-4.6); Glucose 206 mg/dL (65-115); Osmolality Calculated 298 mOsm/kg (285-295); Potassium 4.6 mmol/L (3.5-5.1); Sodium 140 mmol/L (136-145); Total Bilirubin 0.2 mg/dL (0.15-1.2); Total Protein 7.7 g/dL (6.6-8.7)
[2024-06-06 03:31] LABS: Alcohol Level < 10 mg/dL (0-10); Lactic Sepsis W/Reflex 2.8 mmol/L (0.5-2.2)
[2024-06-06] MEDS: iohexol 350 mg/mL 500 mL Btl (per mL) IV (03:34)
[2024-06-06] MEDS: ondansetron 2 mg/ML SDV 2 mL 8 MG IVP (03:49)
--- NOTE | 2024-06-06 04:36 | ECG_ITS ---
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 Measurements Intervals [place] Rate: 76 P: 0 HI: 0 QRS: 33 QRSD: 117 T: 42 QT: 402 QTc: 453 Interpretive Statements ATRIAL FIBRILLATION INCOMPLETE RIGHT BUNDLE BRANCH BLOCK [90+ ms QRS DURATION, TERMINAL R IN V1/V2, 40+ ms S IN I/aVL/V4/V5/V6] Compared to ECG 06/06/2024 09:28:05 Incomplete right bundle-branch block now present Electronically Signed On 06-06-2024 13:32:25 CDT by Kaushal Ngo M.D. [id number]
[2024-06-06] MEDS: sodium chloride 0.9% 1,000 ML 999 ML IV (04:44)
--- NOTE | 2024-06-06 04:48 | P.HP_ITS ---
Providers/Chief Complaint 2 Primary Care Provider: TRINI Bullock Chief Complaint: Resp Distress History of Present Illness Hyacinth Hill is a 73 year old female with a past medical history significant for atrial fibrillation, hypertension, anxiety, hyperlipidemia, asthma, and other comorbidities who presented with altered mental status. Upon assessment, patient is severely altered and unable to provide history. Her and daughter at bedside and provide collateral information. Patient was in her usual state of health until about 2 days ago when she developed increased dizziness and spent much of the last 2 days in bed. They note she has had dizzy spells and issues with her heart rate for some time. She does follow with cardiology clinic and had recent medication adjustments about a 10 days ago when flecainide 100 mg twice daily was added. Family ports patient took her meds last night. She went to bed about 8 PM. She got up to go to the restroom around 12:30 AM this morning and fell around a pet gate at home. After falling she was found to be unresponsive. EMS found the patient to be unresponsive as well. Patient on the able to provide any history. She has no known history of seizures or stroke. There was reported incontinence. In the emergency department, patient's bradycardic. She received atropine. She moves all 4 extremities and is very restless. She does not attempt to communicate. Her eyes remained tightly closed. Spouse reports restlessness of extremities is common for her. Neurology has been consulted and will evaluate this morning. Initial head CT plain as well as CTA head and neck angiogram were negative for acute stroke. Review of Systems 2 Narrative: Attempted to obtain a complete review of systems but unable to do so due to patient's altered mentation. Medications/Allergies Home Medications Medication Instructions Recorded Confirmed Last Taken Type albuterol sulfate 90 mcg/actuation 2 puff inhalation Q6H PRN 06/23/21 05/27/24 Unknown Rx aerosol inhaler (ProAir HFA) bronchospasm #6.7 grams pravastatin 40 mg tablet See Rx Instructions .Route 07/02/23 05/27/24 Unknown Rx .COMPLEX #90 tabs conjugated estrogens 0.625 mg See Rx Instructions .Route 08/02/23 05/27/24 Unknown Rx tablet (Premarin) .COMPLEX #90 tabs levalbuterol HCl 1.25 mg/0.5 mL 1.25 mg (0.5 mL) inhalation Q4H 7 10/26/23 05/27/24 Unknown Rx solution for nebulization days #30 ea tiotropium bromide 2.5 See Rx Instructions .Route 01/30/24 05/27/24 Unknown Rx mcg/actuation mist for inhalation .COMPLEX #4 grams (Spiriva Respimat) apixaban 5 mg tablet (Eliquis) See Rx Instructions .Route 03/18/24 05/27/24 Unknown Rx .COMPLEX #180 tabs cholecalciferol (vitamin D3) 1,250 1,250 mcg PO .WEEKLY 90 days #12 03/20/24 05/27/24 Unknown Rx mcg (50,000 unit) capsule caps metoprolol tartrate 25 mg tablet See Rx Instructions .Route 04/03/24 05/27/24 Unknown Rx .COMPLEX #90 tabs valsartan 80 mg tablet 80 mg PO DAILY #90 tabs 05/12/24 05/27/24 Unknown Rx fenofibrate nanocrystallized 145 See Rx Instructions .Route 05/16/24 05/27/24 Unknown Rx mg tablet .COMPLEX #90 tabs flecainide 100 mg tablet 100 mg PO Q12H #180 tabs 05/27/24 05/27/24 Unknown Rx tramadol 50 mg tablet 25 - 50 mg PO DAILY PRN 05/27/24 Unknown History Allergies Allergy/AdvReac Type Severity Reaction Status Date / Time No Known Allergies Allergy Verified 05/27/24 11:18 PFSH Acute 2 PFSH: Medical History Anticoagulation adequate with anticoagulant therapy Hypertension Chronic lumbar pain Asthma Hyperlipidemia On hormone replacement therapy Surgical History History of tonsillectomy History of hysterectomy History of tubal ligation 1974 Family History Brother Heart disease Mother Cancer Father Cancer Social History Smoking and tobacco/nicotine status: former use of tobacco/nicotine Alcohol intake: current Alcohol intake frequency: holidays/special occasions only Alcohol type: beer Substance/Drug Use: never Adopted: No Caregiver/support person: No Lives independently: No Household members: spouse Marital status: service: No Current occupational status: retired Vitals/I&O/Wt Last Vital Signs Temp 96.3 F L 06/06/24 03:07 Pulse 50 L 06/06/24 04:44 Resp 21 H 06/06/24 04:44 BP 121/58 06/06/24 04:44 Pulse Ox 98 06/06/24 04:44 O2 Del Method Oxymask 06/06/24 04:44 O2 Flow Rate 10 06/06/24 04:44 06/05/24 06/05/24 06/06/24 14:59 22:59 06:59 Intake Total 100 / 100 Balance 100 / 100 Weight last 48 hrs Weight 60.328 kg Physical Exam 2 Narrative: General: Patient is severely altered. Unable to communicate. Extremities are restless continuously moving. Some posturing noted. Head: Atraumatic. Neck: No JVD. Cardiovascular: Bradycardic. No gallops. No murmurs. Lungs: Clear to auscultation, no use of accessory muscles, no crackles or wheezes. Skin: No jaundice. No rashes. Abdomen: Normal bowel sounds, abdomen soft. Genito Urinary: Rainey catheter in place. Rectal: Rectal exam not performed since no symptoms indicated blood loss. Extremities: No cyanosis or clubbing. Musculoskeletal: No swollen or erythematous joints. Neurological: Moves all 4 extremities. No myoclonus. Data 06/06/24 03:02 06/06/24 03:02 Micro: Microbiology 06/06/24 03:56 Blood Culture - Preliminary Blood SPECIMEN COLLECTED 06/06/24 03:02 Blood Culture - Preliminary Blood SPECIMEN COLLECTED A&P Assessment and plan (1) Altered mental status: Altered mental status of unclear etiology Broad differential including stroke, seizure/postictal, concussion, etc. Neurology has been consulted and will evaluate patient Avoid sedating medications that may alter neurologic exam until neurology is able to evaluate Current CT head imaging reviewed Neurochecks Continuous telemetry monitoring Admit to intensive care unit Hold oral medication due to significant aspiration risk (2) Atrial fibrillation: Patient bradycardic requiring atropine in ED History of atrial fibrillation Patient follows with cardiology, recent addition of flecainide noted On therapeutic anticoagulation with apixaban prior to admission Qualifiers: Atrial fibrillation type: paroxysmal Qualified Code(s): I48.0 - Paroxysmal atrial fibrillation (3) Hyperlipidemia: Patient on statin Qualifiers: Hyperlipidemia type: mixed hyperlipidemia Qualified Code(s): E78.2 - Mixed hyperlipidemia (4) Asthma: No wheezing on exam Breathing treatments as needed Qualifiers: Asthma complication type: uncomplicated Asthma persistence: i ntermittent Asthma severity: mild Qualified Code(s): J45.20 - Mild intermittent asthma, uncomplicated (5) Hypertension: Hold antihypertensives Monitor blood pressure closely Qualifiers: Hypertension type: primary hypertension Qualified Code(s): I10 - Essential (primary) hypertension Plan DVT prophylaxis: Lovenox Attestations 2 Medical Necessity Statement*: Patient presents with acute change in mentation concerning for underlying neurologic event with expected hospitalization to cross 2 midnights for neurology evaluation, further imaging, serial neurologic exams, and supportive care. Coding Level of Care Code Acute Code for Chg Fwd Diagnoses Altered mental status R41.82 Paroxysmal atrial fibrillation I48.0 Atrial fibrillation type: paroxysmal Mixed hyperlipidemia E78.2 Hyperlipidemia type: mixed hyperlipidemia Mild intermittent asthma without complication J45.20 Asthma complication type: uncomplicated Asthma persistence: intermittent Asthma severity: mild Primary hypertension I10 Hypertension type: primary hypertension
[2024-06-06 04:55] LABS: Reflex Lactate Order REFLEX LACTIC ORDERD
[2024-06-06] MEDS: atropine 0.1 mg/mL Syr 10 mL 1 MG IVP (04:59)
--- NOTE | 2024-06-06 05:24 | USCV_ITS ---
Hyacinth Hill Age: 73 Gender: F : 1950 Exam Date: 06/06/2024 14:45 Ordering Phys: Jan Phillips MD Technologist: Oz Lerma [place] [facility] [place]: stroke like symptoms BP: 143 / 57 HR: 64 Rhythm: Sinus Technical Quality: Adequate MEASUREMENTS (Male / Female) Normal Values 2D ECHO LV Diastolic Diameter PLAX 5.0 cm 4.2 - 5.9 / 3.9 - 5.3 cm IVS Diastolic Thickness 1.0 cm 0.6 - 1.0 / 0.6 - 0.9 cm IVS Systolic Thickness 1.4 cm LVPW Diastolic Thickness 1.4 cm 0.6 - 1.0 / 0.6 - 0.9 cm LVPW Systolic Thickness 2.0 cm LVOT Diameter 1.9 cm LV Ejection Fraction 2D Teich 64.4 % LV Ejection Fraction MOD 4C 82.4 % LA Diameter 3.0 cm RA Systolic Volume 4C AL 36.6 ml RA Systolic Volume 4C MOD 36.7 ml LA Sys Volume AL 32.8 cm cubed LA Sys Volume Index AL 20.6 cm cubed/m squared Aorta at Sinotubular Diameter 2.1 cm IVC Diameter 2.4 cm DOPPLER AV Peak Velocity 305.2 cm/s LVOT Peak Velocity 116.0 cm/s AV Area Cont Eq vti 1.6 cm squared AV Area Cont Eq pk 1.1 cm squared MV Peak Velocity 114.0 cm/s MV Area PHT 3.5 cm squared Mitral E to A Ratio 1.2 TV Peak Velocity 267.0 cm/s TR Peak Velocity 302.0 cm/s TR Peak Gradient 36.5 mmHg TR Mean Velocity 224.0 cm/s TR Mean Gradient 22.5 mmHg TR Velocity Time Integral 88.4 cm RV Ejection Time 0.2 s FINDINGS Left Ventricle Normal left ventricular size, systolic function and wall thickness, with no regional wall motion abnormalities. Estimated ejection fraction 60%.Grade II/IV diastolic dysfunction, moderately elevated filling pressures. Right Ventricle The right ventricle is normal in size and function. Right Atrium The right atrium is normal in size. Left Atrium The left atrium is normal in size. Mitral Valve Structurally normal mitral valve without significant stenosis or prolapse. There is mild mitral regurgitation. Aortic Valve Severe aortic valve calcification. Mild aortic valve stenosis, mean gradient 9.7 mmHg, ROSLYN 1.6 cm squared. Moderate aortic valve regurgitation. Tricuspid Valve Structurally normal tricuspid valve without significant stenosis or regurgitation. Pulmonary artery systolic pressure is normal. Pulmonic Valve Structurally normal pulmonic valve without significant stenosis. There is no pulmonic regurgitation. Pericardium Normal pericardium without effusion. Aorta Normal ascending aorta dimension. IVC The inferior vena cava appears normal. CONCLUSIONS Normal left ventricular size, systolic function and wall thickness, with no regional wall motion abnormalities. Estimated ejection fraction 60%.Grade II/IV diastolic dysfunction, moderately elevated filling pressures. Structurally normal mitral valve without significant stenosis or prolapse. There is mild mitral regurgitation. Severe aortic valve calcification. Mild aortic valve stenosis, mean gradient 9.7 mmHg, ROSLYN 1.6 cm squared. Moderate aortic valve regurgitation. There is no pericardial effusion. Right atrial pressure is around 20 mm of mercury. Natty Calhoun MD (Electronically Signed) Final Date: 06 June 2024 18:53 S
[2024-06-06] MEDS: DOPamine drip 400 MG/250 ML PREMIX 11.31 MG IV (05:37)
[2024-06-06] MEDS: ondansetron 2 mg/ML SDV 2 mL 4 MG IVP (05:49)
[2024-06-06 05:51] LABS: Estmated Average Glucose 120; Hemoglobin A1C 5.8 % (4.0-6.0)
[2024-06-06 06:00] LABS: Procalcitonin 0.03 ng/mL (0-0.5); Thyroid Stimulating Hormone 5.16 uIU/mL (0.27-4.20)
[2024-06-06 06:11] LABS: Cholesterol 155 mg/dL (0-200); HDL Cholesterol 43 mg/dL (60-100); LDL Cholesterol Calculated 68 mg/dL (50-129); LDL HDL Ratio 1.58 RATIO (0.00-3.22); Triglycerides 221 mg/dL (0-150)
[2024-06-06 06:23] LABS: ABG PCO2 39.4 mmHg (35-45); ABG PH Result 7.31 (7.35-7.45); Alveolar-Arterial Oxygen Gradi 3.2 mmHg (5-10); Arterial Blood Gas Hematocrit 33.4 % (37-47); Base Excess ABG -6.2 mmol/L (-2.0-2.0); Blood Gas Allen Test Pos; Blood Gas Operator Identificat Anonymous; Blood Gas Sample Site Radial, left; Blood Gas Sample Type Arterial; Carboxyhemoglobin 0.6 %THgb (0.4-20.1); HCO3 ABG 19.7 mmol/L (22-26); HGB O2 Sat 93.5 % (95-100); Ionized Calcium Level - ABG 1.2 mmol/L (1.1-1.4); Methemoglobin 0.8 % (0.4-1.5); Oxygen Device OXY MASK; Oxygen Saturation ABG 94.8; PO2 ABG 75.9 mmHg (80.0-100.0); Potassium Level - ABG 4.2 mmol/L (3.5-5.0); Total Hemoglobin 10.9 g/dL (12-16)
--- NOTE | 2024-06-06 08:36 | ECG_ITS ---
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 Measurements Intervals [place] Rate: 75 P: 61 MO: 244 QRS: 28 QRSD: 119 T: 48 QT: 399 QTc: 446 Interpretive Statements SINUS RHYTHM WITH FIRST DEGREE AV BLOCK WITH OCCASIONAL SUPRAVENTRICULAR PREMATURE COMPLEXES SINUS PAUSE POSSIBLE LEFT ATRIAL ENLARGEMENT [-0.1mV P-WAVE IN V1/V2] INCOMPLETE RIGHT BUNDLE BRANCH BLOCK [90+ ms QRS DURATION, TERMINAL R IN V1/V2, 40+ ms S IN I/aVL/V4/V5/V6] Compared to ECG 03/20/2023 14:22:27 First degree AV block now present Incomplete right bundle-branch block now present Electronically Signed On 06-06-2024 7:52:58 CDT by Kaushal Ngo M.D. [id number]
--- NOTE | 2024-06-06 09:09 | PM.CONSULT ---
Providers/Reason For Consult Consulting Physician/Specialty*: alexia,rebecca Reason for Consult*: Unexplained encephalopathy Requesting Physician: Dr. Mcdermott Attending Physician: Jan Phillips MD Primary Care Provider: TRINI Bullock History of Present Illness History of Present Illness This 73-year-old woman ate a good supper with her last night. She went to bed around 8 PM. Her heard the dog bark around 12:30 AM and as he went to check on the dog he tripped over the patient's body laying in the [place]. He could not get her up. He got his son and the 2 of them managed to get her into the bed. He called 911 and monitored her respirations and her neurologic state until EMS arrived. The [facility] EMS team was suspicious of stroke. Dr. Mcdermott called me after the patient arrived to [facility] around 3:00 this morning. He described diffuse encephalopathy, extensor posturing, nonfocal eye movements. She was not moving any of her 4 extremities and did not respond to pain (sternal rub). CT scan of the head was unremarkable. We were both concerned about brainstem stroke and I prepared to come in and evaluate the patient. While I was getting dressed he called and notified me that the patient is on apixaban for chronic atrial fibrillation and therefore not a candidate for TNK. I asked him to get a stat CT angiogram to rule out basilar artery occlusion especially. I called back at 4 AM and the results were not yet available. Subsequently the radiologist indicated that the patient had no large vessel stenosis or occlusion. The patient has not had a fever. She was started on a new medication recently, flecainide 100 mg twice daily. That medication was started because her atrial fibrillation was bothering her and she could not go up on the beta-eliel due to bradycardia. Her says that ever since he has known her for the last 15 years she has had very restless unusual movements during sleep. She might start out at 1 end of the bed and end up at the other. She has constant restless thrashing movements during my exam and he says that that is normal for her. She has been awake enough to say her name this morning and was able to tell me the month of her . Review of Systems Narrative: Her says that she has been fine. The ER obtained the history that she been dizzy and taken to her bed in the last several days but her says that is not the case. He says she has been fine. She just saw Dr. Ruiz in the cardiology office on 05/27 and described to him that she was having frequent episodes of atrial fibrillation and for that he started her on flecainide to 100 mg twice daily. She has normal systolic function and does not have a cardiomyopathy. She has not had a fever. She was so hungry last night that she helped herself to extra potatoes and she seems to be feeling fine. She complained to TRINI Bullock she has no energy and is tired all of the time. She gets chest pain when her heart pounds. Her stress test was negative but she has not had a cath. She has complained that she has dizziness with tunnel vision and sometimes her blood pressure is low. Medications/Allergies Home Medications Medication Instructions Recorded Confirmed Last Taken Type albuterol sulfate 90 mcg/actuation 2 puff inhalation Q6H PRN 06/23/21 05/27/24 Unknown Rx aerosol inhaler (ProAir HFA) bronchospasm #6.7 grams pravastatin 40 mg tablet See Rx Instructions .Route 07/02/23 05/27/24 Unknown Rx .COMPLEX #90 tabs conjugated estrogens 0.625 mg See Rx Instructions .Route 08/02/23 05/27/24 Unknown Rx tablet (Premarin) .COMPLEX #90 tabs levalbuterol HCl 1.25 mg/0.5 mL 1.25 mg (0.5 mL) inhalation Q4H 7 10/26/23 05/27/24 Unknown Rx solution for nebulization days #30 ea tiotropium bromide 2.5 See Rx Instructions .Route 01/30/24 05/27/24 Unknown Rx mcg/actuation mist for inhalation .COMPLEX #4 grams (Spiriva Respimat) apixaban 5 mg tablet (Eliquis) See Rx Instructions .Route 03/18/24 05/27/24 Unknown Rx .COMPLEX #180 tabs cholecalciferol (vitamin D3) 1,250 1,250 mcg PO .WEEKLY 90 days #12 03/20/24 05/27/24 Unknown Rx mcg (50,000 unit) capsule caps metoprolol tartrate 25 mg tablet See Rx Instructions .Route 04/03/24 05/27/24 Unknown Rx .COMPLEX #90 tabs valsartan 80 mg tablet 80 mg PO DAILY #90 tabs 05/12/24 05/27/24 Unknown Rx fenofibrate nanocrystallized 145 See Rx Instructions .Route 05/16/24 05/27/24 Unknown Rx mg tablet .COMPLEX #90 tabs flecainide 100 mg tablet 100 mg PO Q12H #180 tabs 05/27/24 05/27/24 Unknown Rx tramadol 50 mg tablet 25 - 50 mg PO DAILY PRN 05/27/24 Unknown History Allergies Allergy/AdvReac Type Severity Reaction Status Date / Time No Known Allergies Allergy Verified 05/27/24 11:18 Current Medications Generic Name Dose Route Start Last Admin Trade Name Freq PRN Reason Stop Dose Admin Dopamine HCl/Dextrose 400 mg in 250 mls @ 11.312 mls/hr 06/06/24 05:24 06/06/24 08:01 Intropin Drip IV 12.5 mcg/kg/min CONT MARILIN 28.28 mls/hr Titration Protocol 5 MCG/KG/MIN Ondansetron HCl 4 mg 06/06/24 05:18 06/06/24 05:49 Ondansetron 2 Mg/Ml Sdv 2 Ml IVP 4 mg Q8H PRN Administration vomiting, or N/V if npo PFSH Acute PFSH: Medical History Anticoagulation adequate with anticoagulant therapy Hypertension Chronic lumbar pain Asthma Hyperlipidemia On hormone replacement therapy Surgical History History of tonsillectomy History of hysterectomy History of tubal ligation 1974 Family History Brother Heart disease Mother Cancer Father Cancer Social History Smoking and tobacco/nicotine status: former use of tobacco/nicotine Alcohol intake: current Alcohol intake frequency: holidays/special occasions only Alcohol type: beer Substance/Drug Use: never Adopted: No Caregiver/support person: No Lives independently: No Household members: spouse Marital status: service: No Current occupational status: retired Vitals/I&O/Wt Last Vital Signs Temp 96.3 F L 06/06/24 05:27 Pulse 66 06/06/24 08:30 Resp 17 06/06/24 08:30 BP 143/57 06/06/24 08:30 Pulse Ox 95 06/06/24 08:30 O2 Del Method Oxymask 06/06/24 06:30 O2 Flow Rate 10 06/06/24 05:02 06/05/24 06/06/24 06/06/24 22:59 06:59 14:59 Intake Total 107.163 / 107.163 29.98 / 29.98 Balance 107.163 / 107.163 29.98 / 29.98 Weight last 48 hrs Weight 126 lb 11.2 oz Weight 126 lb 11.2 oz Weight 133 lb Physical Exam Narrative: GENERAL: Thin woman who looks younger than her age. She is restlessly kicking her legs and moving about in the bed.. MENTAL STATUS: She can tell me her name that she was born in [place] and that her birthdate is in [birth year]. She was sleepy and fell asleep easily. She followed commands to a limited degree. CRANIAL NERVES: Visual bernard could not be appreciated. She responded to threat in both temporal bernard. Facial movements were symmetric at rest. Eye movements were full as she fixed and followed my face from aelk-ii-obro. Her speech was dysarthric. MOTOR: She has constant thrashing movements of all 4 extremities. I question whether the left arm is a little weaker as she flops it back to the bed more quickly. SENSATION: She withdraws from touch in all 4 extremities. COORDINATION: No tremor. No myoclonus. DEEP TENDON REFLEXES: 2/4 throughout. Toes downgoing. GAIT: Not tested HEENT: No rash. Neck was supple. CARDIOVASCULAR: The heart sounds were normal without murmur or gallop. She is in atrial fibrillation on the monitor. Extremities: She has a long scratch on the left leg from falling over the dog guard. Data 06/06/24 03:02 06/06/24 03:02 Micro: Microbiology 06/06/24 03:56 Blood Culture - Preliminary Blood SPECIMEN COLLECTED 06/06/24 03:02 Blood Culture - Preliminary Blood SPECIMEN COLLECTED A&P Assessment and plan (1) Acute metabolic encephalopathy: Sudden onset of acute profound encephalopathy to the point that she was not answering questions or following commands in the middle of the night. I was concerned about a brainstem stroke but she has no focal findings, no eye movement abnormalities and no signs of atherosclerosis or embolism in the posterior circulation which is reassuring. Differential diagnosis includes herpes encephalitis. Meningitis seems unlikely but is worth consideration. Flecainide is reported to show side effects in the QUALITY COMPLIANCE COORDINATOR but she has been on that for almost 2 weeks without any problems and it seems unlikely to explain her sudden encephalopathy. That being said, I would hold that medication. Underlying infection remains a concern, especially since her white count is elevated at 15.34 but now no cause has yet been found. She is a little bit dry based on her elevated creatinine of 1.0. Seizure is a concern. Her lactic acid was slightly elevated at 2.8. She presents with markedly elevated liver enzymes of new onset. She previously was diagnosed with a hepatic cyst by CAT scan of the abdomen performed a year ago. That may need to be reevaluated. Hepatic encephalopathy would be of concern. If possible it would be good to obtain an MRI of the brain. I talked with her attending physician and I will remain vigilant. (2) Atrial fibrillation with rapid ventricular response: Consult Attestations Medical Necessity Statement: Unexplained profound encephalopathy needs ICU care Coding Level of Care Code 39809 Diagnoses Acute metabolic encephalopathy G93.41 Atrial fibrillation with rapid ventricular response I48.91
--- NOTE | 2024-06-06 09:19 | ECG_ITS ---
ERROR Please disregard all previous reports and links for this order result. ERROR [email or web address]
[2024-06-06] MEDS: acyclovir 500 MG in sodium chloride 0.9% (plus) 100 ML 110 MG IV ×2 (09:51→18:21)
[2024-06-06] MEDS: sodium chloride 0.9% 1,000 ML 75 ML IV (09:56)
--- NOTE | 2024-06-06 09:57 | CT_ITS ---
WS: [id number] CT ABDOMEN AND PELVIS NONCONTRAST HISTORY: constipation, ams TECHNIQUE: Imaging performed through the abdomen and pelvis. Coronal and sagittal reformats are submi tted. All CT scans at [facility] use at least one of these dose optimization techniques: auto mated exposure control; mA and/or kV adjustment per patient size (includes targeted exams where dose is matched to clinical indication); or iterative reconstruction. DLP: 405.86 mGy.cm COMPARISON: 05/08/2023 Moderate motion artifact throughout this examination. Lower thorax: Mild interstitial edema at the lung bases. Dependent atelectasis at the lung bases. Mil d cardiomegaly. Small hiatal hernia. Liver: Normal size liver. Reidentified is the bilobed cyst in the LEFT lobe measuring 1.6 x 1.2 cm. N o bile duct dilatation. Gallbladder: Contrast within the gallbladder lumen from vicarious excretion of a recent contrast exam ination. Pancreas: Normal size and attenuation. Normal pancreatic duct. No pancreatitis or mass. Spleen: Normal. Adrenal glands: Normal. No mass. Right kidney: Kidney appears normal size. There is significant breathing motion artifact. There is co ntrast within the ureter from a recent contrast examination. No intraluminal ureteral filling defect. Left kidney: Motion artifact with no obstruction. Aorta: Mild atherosclerosis abdominal aorta with no aneurysm. No free fluid, intraperitoneal air or significant lymphadenopathy. GI tract: Stomach is moderately distended with fluid. No small bowel obstruction. Mild constipation. No acute diverticulitis. There is an area of very mild thickening near the ileocecal valve. There is no obstruction. No discrete mass is identified. Abdominal wall: Negative. No hernia. Pelvis: Rainey catheter present in the urinary bladder. No adenopathy or free fluid. Osseous structures: Thoracolumbar scoliosis. CT/CT abdomen pelvis wo con [id number] IMPRESSION: 1. Study is compromised by breathing motion artifact. 2. Limited evaluation of the kidneys. Abscess, mass or pyelonephritis or obstr uction would be obscured. 3. Vicarious excretion of contrast into the gallbladder. 4. Mild constipation. There is no obstructing process. Very minimal soft tissu e thickening at the ileocecal valve but there is no obstruction. If colonoscopy has not been performed recently this may be of benefit. 5. LEFT lobe hepatic cyst. 6. Dependent changes at the lung bases.
[2024-06-06] MEDS: doxycycline 100 MG in sodium chloride 0.9% (plus) 100 ML IV (10:29)
[2024-06-06 10:50] LABS: Free T4 Free Thyroxine 1.38 ng/dL (0.82-1.77)
[2024-06-06 10:53] LABS: Lactic Acid level (Lactate) 2.3 mmol/L (0.5-2.2)
[2024-06-06 10:54] LABS: Troponin 5 6HR 184.7 ng/L (0-10); Troponin 5 6HR Delta 172.7 ng/L (0-12)
--- NOTE | 2024-06-06 10:56 | P.PN_ITS ---
Subjective 2 Subjective: Ruled in for non-STEMI Consulted Dr. Pinto Patient still on dopamine drip Hemodynamic stable Still patient is encephalopathic Evaluated by Dr. Eli as well As per the family patient was in usual state of health until 2 to 3 days ago, there was some correlation with initiation of flecainide, patient is not able to provide any history, is stating that they live in the [facility], they do have a lot of ticks but Hyacinth has had no recent tick bites No recent fever, is stating that she remains constipated, never had colonoscopy, she had couple episode of emesis as well No recent rash, fever As per the patient constantly suffers with sinus infection and drainage Vitals/I&O/Wt Last Vital Signs Temp 96.3 F L 06/06/24 05:27 Pulse 64 06/06/24 09:22 Resp 16 06/06/24 09:22 BP 143/57 06/06/24 08:30 Pulse Ox 98 06/06/24 09:22 O2 Del Method Oxymask 06/06/24 09:22 O2 Flow Rate 3 06/06/24 09:22 06/05/24 06/06/24 06/06/24 22:59 06:59 14:59 Intake Total 107.163 / 107.163 29.98 / 29.98 Balance 107.163 / 107.163 29.98 / 29.98 Weight last 48 hrs Weight 57.47 kg Weight 57.47 kg Weight 60.328 kg Physical Exam 2 Narrative: Patient is moving all of her extremities Akathisia There is no active focal deficit She is encephalopathic not able to follow commands Not able to make eye contact Family is at the bedside S1, S2 Currently on dopamine drip hemodynamically stable Looks dehydrated No apparent rash on the extremities Data 06/06/24 03:02 06/06/24 03:02 Micro: Microbiology 06/06/24 03:56 Blood Culture - Preliminary Blood SPECIMEN COLLECTED 06/06/24 03:02 Blood Culture - Preliminary Blood SPECIMEN COLLECTED A&P Assessment and plan (1) Metabolic encephalopathy: (2) Atrial fibrillation with rapid ventricular response: (3) Bradycardia: (4) Sick sinus syndrome: (5) NSTEMI (non-ST elevated myocardial infarction): (6) Altered mental status: (7) Constipation: Plan Metabolic encephalopathy Previous CT scan of abdomen showed cyst of liver Will request ammonia and AFP level Will request liver ultrasound as well Will request head MRI Start acyclovir and doxycycline Appreciate neuro recommendations Patient is afebrile There is no focal deficit No skin rash Etiology of encephalopathy is unknown Rule out reversible causes such as UTI, constipation, requested CT abdomen pelvis, family stating that Hyacinth normally stays constipated, she also had couple of episode of emesis Confusion with abnormal liver enzymes, my concern will be high for tick related illness I will add doxycycline Bradycardia, concern for sick sinus syndrome Patient may need pacemaker evaluation Consult cardiology Non-STEMI Start therapeutic Lovenox Will give loading dose of aspirin, Will request echo Bradycardia: Discontinue flecainide and metoprolol DVT prophylaxis: Currently on therapeutic Lovenox Hold off on Eliquis Once patient more alert can have little clear liquid diet Patient will need sedation for MRI of the head Full code Continue ICU management Attestations 2 Medical Necessity Statement*: Prolonged hospitalization needed Coding Level of Care Code Acute Code for [facility] Fwd Diagnoses Metabolic encephalopathy G93.41 Atrial fibrillation with rapid ventricular response I48.91 Bradycardia R00.1 Sick sinus syndrome I49.5 NSTEMI (non-ST elevated myocardial infarction) I21.4 Altered mental status R41.82 Constipation K59.00
--- NOTE | 2024-06-06 11:02 | US_ITS ---
WS: [id number] RIGHT UPPER QUADRANT ULTRASOUND HISTORY: Cyst versus mass COMPARISON: Prior CT 06/06/2024. CT 05/08/2023 Liver: 16.1 cm in length. Liver is normal size. Reidentified is the bilobed cyst or 2 adjacent cysts in the LEFT lobe of the liver measuring 1.4 x 2.1 x 1.2 cm. Similar to the prior exam from 05/08/2023. Portal Vein: Normal hepatopetal flow with monophasic waveform. Gallbladder: Normally distended gallbladder with no stones or wall thickening. CBD: 0.5 cm Pancreas: Obscured by bowel gas. Right kidney: 9.1 cm in length. Normal size and echogenicity. No hydronephrosis or mass. Aorta and IVC: Unremarkable abdominal aorta and IVC. No ascites. US/US liver [id number] IMPRESSION: 1. Slightly bilobed stable LEFT hepatic cyst since at least 05/08/2023. No idalia d mass. 2. Negative gallbladder.
[2024-06-06] MEDS: aspirin 325 mg EC Tablet PO (11:20)
--- NOTE | 2024-06-06 11:20 | PC.PHAR ---
Addendum entered by Lindsay Al 06/06/24 11:46: MED LIST VERIFIED VIA [facility] LIST FAXED OVER Original Note: [facility] FAXING CURRENT MED LIST 06/06/24
[2024-06-06 11:23] LABS: Ammonia 29 umol/L (11-51)
[2024-06-06 11:28] LABS: Tumor Marker Alpha Fetoprotein 3.9 ng/mL (0-8.3)
--- NOTE | 2024-06-06 12:07 | PC.NURSE ---
Dr. Hunt at bedside this AM, plan continue on dopamine drip, MRI if patient able to come off dopamine and meds per MAR
--- NOTE | 2024-06-06 12:14 | PC.SOCIAL ---
IMM UPATED IMM dated and initialed and placed in chart and copy given to patient
--- NOTE | 2024-06-06 13:55 | PC.NURSE ---
Bedside report received from JASON Emanuel. Care assumed. Pt to CT.
--- NOTE | 2024-06-06 15:56 | P.CONIM_ITS ---
Providers/Reason For Consult 2 Consulting Physician/Specialty*: Dr. Hunt Reason for Consult*: Altered mental status History of atrial fibrillation on flecainide Requesting Physician: 73-year-old female past medical history significant for paroxysmal atrial fibrillation hypertension was admitted with altered mental status changes and hypotension. Recently patient medications were adjusted including flecainide, we have been asked to assist in her care. I have detailed discussion with her and family member by bedside. They think patient appetite was low and felt lethargic fatigue and sleepy when she became confused they decided to bring her to the ER. Twelve-lead EKG showed sinus rhythm no significant ST's ST changes suggestive of ischemia . Troponin was elevated could be demand ischemia denies chest pain. Attending Physician: Natty Hunt MD Primary Care Provider: TRINI Bullock History of Present Illness History of Present Illness Hyacinth Hill is a 73 year old female Review of Systems 2 Narrative: Her says that she has been fine. The ER obtained the history that she been dizzy and taken to her bed in the last several days but her says that is not the case. He says she has been fine. She just saw Dr. Ruiz in the cardiology office on 05/27 and described to him that she was having frequent episodes of atrial fibrillation and for that he started her on flecainide to 100 mg twice daily. She has normal systolic function and does not have a cardiomyopathy. She has not had a fever. She was so hungry last night that she helped herself to extra potatoes and she seems to be feeling fine. She complained to TRINI Bullock she has no energy and is tired all of the time. She gets chest pain when her heart pounds. Her stress test was negative but she has not had a cath. She has complained that she has dizziness with tunnel vision and sometimes her blood pressure is low. Medications/Allergies Home Medications Medication Instructions Recorded Confirmed Last Taken Type cholecalciferol (vitamin D3) 1,250 1,250 mcg PO .WEEKLY 90 days #12 03/20/24 06/06/24 Unknown Rx mcg (50,000 unit) capsule caps valsartan 80 mg tablet 80 mg PO DAILY #90 tabs 05/12/24 06/06/24 Unknown Rx flecainide 100 mg tablet 100 mg PO Q12H #180 tabs 05/27/24 06/06/24 Unknown Rx tramadol 50 mg tablet 25 - 50 mg PO DAILY PRN Pain 05/27/24 06/06/24 Unknown History apixaban 5 mg tablet (Eliquis) 5 mg PO BID 06/06/24 06/06/24 Unknown History conjugated estrogens 0.625 mg 0.625 mg PO DAILY 06/06/24 06/06/24 Unknown History tablet (Premarin) fenofibrate nanocrystallized 145 145 mg PO DAILY 06/06/24 06/06/24 Unknown History mg tablet levalbuterol HCl 1.25 mg/0.5 mL 1.25 mg inhalation Q4H PRN 06/06/24 06/06/24 Unknown History solution for nebulization Shortness Of Breath metoprolol tartrate 25 mg tablet 25 mg PO DAILY 06/06/24 06/06/24 Unknown History pravastatin 40 mg tablet 40 mg PO DAILY 06/06/24 06/06/24 Unknown History tiotropium bromide 2.5 2 puff inhalation DAILY 06/06/24 06/06/24 Unknown History mcg/actuation mist for inhalation (Spiriva Respimat) Allergies Allergy/AdvReac Type Severity Reaction Status Date / Time No Known Allergies Allergy Verified 05/27/24 11:18 Current Medications Generic Name Dose Route Start Last Admin Trade Name Freq PRN Reason Stop Dose Admin Dopamine HCl/Dextrose 400 mg in 250 mls @ 11.312 mls/hr 06/06/24 05:24 06/06/24 14:05 Intropin Drip IV 4.5 mcg/kg/min CONT MARILIN 10.18 mls/hr Titration Protocol 5 MCG/KG/MIN Acyclovir 500 mg/ Sodium 110 mls @ 110 mls/hr 06/06/24 10:00 06/06/24 14:15 Chloride IV Infused Q8H MARILIN Infusion Sodium Chloride 1,000 mls @ 75 mls/hr 06/06/24 09:30 06/06/24 09:56 Sodium Chloride 0.9% IV 75 mls/hr .[id number] MARILIN Administration Doxycycline Hyclate 100 mg/ 100 mls @ 100 mls/hr 06/06/24 11:00 06/06/24 11:40 Sodium Chloride IV Infused Q12H MARILIN Infusion Protocol Ondansetron HCl 4 mg 06/06/24 05:18 06/06/24 05:49 Ondansetron 2 Mg/Ml Sdv 2 Ml IVP 4 mg Q8H PRN Administration vomiting, or N/V if npo PFSH Acute 2 PFSH: Medical History Anticoagulation adequate with anticoagulant therapy Hypertension Chronic lumbar pain Asthma Hyperlipidemia On hormone replacement therapy Surgical History History of tonsillectomy History of hysterectomy History of tubal ligation 1974 Family History Brother Heart disease Mother Cancer Father Cancer Social History Smoking and tobacco/nicotine status: former use of tobacco/nicotine Alcohol intake: current Alcohol intake frequency: holidays/special occasions only Alcohol type: beer Substance/Drug Use: never Adopted: No Caregiver/support person: No Lives independently: No Household members: spouse Marital status: service: No Current occupational status: retired Dietary Habits: Current diet type/program: regular Caffeine: Yes Personal Safety: Do you feel safe at home: Yes Victim of physical abuse: No Victim of emotional abuse: No Victim of sexual abuse: No Would you like help information on resources?: No Vitals/I&O/Wt Last Vital Signs Temp 99.4 F 06/06/24 14:30 Pulse 67 06/06/24 14:30 Resp 16 06/06/24 14:30 BP 146/62 06/06/24 14:30 Pulse Ox 98 06/06/24 14:30 O2 Del Method Nasal Cannula 06/06/24 14:30 O2 Flow Rate 2 06/06/24 14:30 06/06/24 06/06/24 06/06/24 06:59 14:59 22:59 Intake Total 107.163 / 107.163 380.911 / 380.911 Output Total 1400 / 1400 Balance 107.163 / 107.163 -1019.089 / -1019.089 Weight last 48 hrs Weight 126 lb 11.2 oz Weight 126 lb 11.2 oz Weight 133 lb Physical Exam 2 Const: OTHER: GENERAL: Patient is arousable and but confused however she told me she is in the hospital HEART: Regular S1 and S2. No murmur, rub or gallop. [] LUNGS: Clear to auscultate bilaterally. [] ABDOMEN: Moderately distended CENTRAL NERVOUS SYSTEM: Grossly nonfocal. [] EXTREMITIES: Lower extremities without edema Data 06/06/24 03:02 06/06/24 03:02 Micro: Microbiology 06/06/24 03:56 Blood Culture - Preliminary Blood SPECIMEN COLLECTED 06/06/24 03:02 Blood Culture - Preliminary Blood SPECIMEN COLLECTED A&P Assessment and plan (1) Altered mental status: Could be multifactorial including CVA metabolic infectious and secondary to medicine. Less likely side effect of flecainide contributing to altered mental status however at this point we will discontinue it with other medications. Medicine to rule out CVA infection and metabolic causes. Today patient told me she is in hospital but she appeared to be restless. Vitals are stable she is on dopamine, she is in sinus rhythm. Once cleared for acute stroke or head bleed may need to put her back on anticoagulation (2) Atrial fibrillation: Remained in sinus rhythm continue holding flecainide metoprolol and other dianna eliel for now. Qualifiers: Atrial fibrillation type: paroxysmal Qualified Code(s): I48.0 - Paroxysmal atrial fibrillation Coding Level of Care Code Acute Code for [facility] Diagnoses Altered mental status R41.82 Paroxysmal atrial fibrillation I48.0 Atrial fibrillation type: paroxysmal
[2024-06-06] MEDS: magnesium citrate Btl 296 mL 150 ML PO (16:28)
[2024-06-06] MEDS: enoxaparin 40 mg/0.4 mL Syringe 60 MG SUBCUT (18:21)
--- NOTE | 2024-06-06 18:49 | PC.NURSE ---
Addendum entered by Maria C Hernandez RN 06/06/24 18:55: PEr Syl GOMEZ, who was her nurse earlier today, her mentation started to improve after the Doxycycline and Acyclovir administration and a nap. Original Note: Shift summary: Pt started off the shift thrashing wildly in the bed, unable to respond verbally. She is now alert and oriented to self, , month, year and place. She cannot recall yesterday's event very well at this time. She moves all limbs well and equally. YAZ Noted. She is sinus first degree block on the monitor. Dopamine remains infusing, it had been reduced to 3mcg/kg/min. IVF still infusing No complaints of pain. Afebrile this shift. Urine out put greater than 2000ml this shift. NO BM noted MRI moved to tomorrow, if Dopamine weaned off.
[2024-06-07] VITALS (51 sets, daily range): BP systolic 101–189; BP diastolic 43–111; PULSE 66–89; RESP 11–26; TEMP 36.4–37.3; O2SAT 88–100
[2024-06-07] MEDS: doxycycline 100 MG in sodium chloride 0.9% (plus) 100 ML IV ×3 (00:12→22:49)
[2024-06-07] MEDS: sodium chloride 0.9% 1,000 ML 75 ML IV ×2 (00:13→12:13)
[2024-06-07] MEDS: DOPamine drip 400 MG/250 ML PREMIX 6.79 MG IV (00:14)
[2024-06-07] MEDS: acyclovir 500 MG in sodium chloride 0.9% (plus) 100 ML 110 MG IV ×3 (02:37→16:59)
[2024-06-07 04:00] LABS: Basophils # 0.1 10^3/uL (0.0-0.1); Basophils % 0.4 %; Eosinophils # 0.1 10^3/uL (0.0-0.8); Eosinophils % 0.7 %; Hematocrit 31.8 % (36-47); Lymphocytes # 3.9 10^3/uL (0.8-4.8); Lymphocytes % 28.4 %; Mean Corpuscular HGB Conc 31.4 g/dL (30-55); Mean Corpuscular Hemoglobin 29.3 pg (27-33); Mean Corpuscular Volume 93.3 fl (85-98); Monocytes # 1.6 10^3/uL (0.2-0.9); Monocytes % 12.1 %; Neutrophils # 7.85 10^3/uL (1.8-7.7); Nucleated Red Blood Cells % 0 %; Platelet Count 296 10^3/cmm (157-399); Red Blood Count 3.41 10^6/uL (3.85-5.65); Red Cell Distribution Width 14.1 % (12.1-15.1); White Blood Count 13.57 10^3/uL (3.29-11.43)
[2024-06-07 04:20] LABS: Alanine Aminotransferase 34 U/L (0-33); Albumin Level 3.3 g/dL (3.5-5.2); Alkaline Phosphatase 47 U/L (35-105); Anion Gap 15.1 (5-19); Aspartate Amino Transferase 40 U/L (0-32); Blood Urea Nitrogen 13 mg/dL (8-23); Carbon Dioxide 21 mmol/L (22-29); Chloride 112 mmol/L (98-107); Creatinine Clr Calc Pharmacy 50.8837; Globulin 3.1 g/dL (1.3-4.6); Glucose 104 mg/dL (65-115); Magnesium 2.1 mg/dL (1.7-2.3); Osmolality Calculated 298 mOsm/kg (285-295); Phosphorus 2.2 mg/dL (2.5-4.5); Potassium 4.1 mmol/L (3.5-5.1); Sodium 144 mmol/L (136-145); Total Bilirubin 0.3 mg/dL (0.15-1.2); Total Protein 6.4 g/dL (6.6-8.7)
[2024-06-07] MEDS: aspirin 81 mg EC Tablet PO (09:12)
[2024-06-07] MEDS: enoxaparin 40 mg/0.4 mL Syringe 60 MG SUBCUT ×2 (09:12→16:58)
--- NOTE | 2024-06-07 11:48 | P.PN_ITS ---
Subjective 2 Subjective: seen today mental status improved, back to baseline reviewed all her home medications with her dopamine drip turned off this morning, HR stable Vitals/I&O/Wt Last Vital Signs Temp 98.0 F 06/07/24 08:00 Pulse 76 06/07/24 08:00 Resp 19 H 06/07/24 08:00 BP 122/57 06/07/24 08:00 Pulse Ox 96 06/07/24 08:00 O2 Del Method Room Air 06/07/24 08:00 O2 Flow Rate 2 06/07/24 07:44 06/06/24 06/07/24 06/07/24 22:59 06:59 14:59 Intake Total 594.782 / 2676.186 1058.144 / 3322.837 425.184 / 425.184 Output Total 2019 600 / 2620 Balance -25.218 / -44.307 747.144 / 702.837 425.184 / 425.184 Weight last 48 hrs Weight 56.79 kg Weight 57.47 kg Weight 57.47 kg Weight 60.328 kg Physical Exam 2 Narrative: Patient is moving all of her extremities Akathisia There is no active focal deficit AOx3 Family is at the bedside S1, S2 saturating 98% on 2L No rashes noted, lungs clear to auscultation b/l Urinary Catheter Management: Rainey: Cath Placed During This Visit: no Reason for Continuing Indwelling Catheter: Accurate Measurement of Urinary Output in Critically Ill Patients Data 06/07/24 03:24 06/07/24 03:24 Micro: Microbiology 06/06/24 03:56 Blood Culture - Preliminary Blood NEGATIVE TO DATE 06/06/24 03:02 Blood Culture - Preliminary Blood NEGATIVE TO DATE A&P Assessment and plan (1) Metabolic encephalopathy: (2) Atrial fibrillation with rapid ventricular response: (3) Bradycardia: (4) Sick sinus syndrome: (5) NSTEMI (non-ST elevated myocardial infarction): (6) Altered mental status: (7) Constipation: Plan Metabolic encephalopathy - improved Previous CT scan of abdomen showed cyst of liver Will request ammonia: normal and AFP level: pending Will request liver ultrasound as well:1. Slightly bilobed stable LEFT hepatic cyst since at least 05/08/2023. No solid mass. 2. Negative gallbladder. Will request head MRI - pending. will hold off today as pt mental status is back to baseline and she needs to be monitored on telemetry. Continue acyclovir and doxycycline Appreciate neuro recommendations Patient is afebrile There is no focal deficit No skin rash Etiology of encephalopathy is unknown Rule out reversible causes such as UTI, constipation, requested CT abdomen pelvis, family stating that Hyacinth normally stays constipated, she also had couple of episode of emesis Confusion with abnormal liver enzymes, my concern will be high for tick related illness - Will discuss with neurology today. Bradycardia, concern for sick sinus syndrome, possibly medication induced Patient may need pacemaker evaluation Consult cardiology - recommendations appreciated. dopamine drip turned off this morning. Non-STEMI Start therapeutic Lovenox Will give loading dose of aspirin, echo completed: Normal left ventricular size, systolic function and wall thickness, with no regional wall motion abnormalities. Estimated ejection fraction 60%.Grade II/IV diastolic dysfunction, moderately elevated filling pressures. Structurally normal mitral valve without significant stenosis or prolapse. There is mild mitral regurgitation. Severe aortic valve calcification. Mild aortic valve stenosis, mean gradient 9.7 mmHg, ROSLYN 1.6 cm squared. Moderate aortic valve regurgitation. There is no pericardial effusion. Right atrial pressure is around 20 mm of mercury. Bradycardia: Discontinue flecainide and metoprolol DVT prophylaxis: Currently on therapeutic Lovenox Hold off on Eliquis Once patient more alert can have little clear liquid diet Full code Continue ICU management Attestations 2 Medical Necessity Statement*: continue to monitor in hospital for above medical issues. Diagnoses Metabolic encephalopathy G93.41 Atrial fibrillation with rapid ventricular response I48.91 Bradycardia R00.1 Sick sinus syndrome I49.5 NSTEMI (non-ST elevated myocardial infarction) I21.4 Altered mental status R41.82 Constipation K59.00
--- NOTE | 2024-06-07 12:57 | P.PN_ITS ---
Subjective 2 Subjective: Patient is alert awake oriented x 3 vitals are stable. Vitals/I&O/Wt Last Vital Signs Temp 98.0 F 06/07/24 08:00 Pulse 72 06/07/24 12:00 Resp 26 H 06/07/24 12:00 BP 157/61 06/07/24 11:00 Pulse Ox 94 06/07/24 12:00 O2 Del Method Room Air 06/07/24 12:00 O2 Flow Rate 2 06/07/24 07:44 06/06/24 06/07/24 06/07/24 22:59 06:59 14:59 Intake Total 594.782 / 6708.599 6779.144 / 3322.837 1625.184 / 1625.184 Output Total 620 / 2020 600 / 2620 1200 / 1200 Balance -25.218 / -44.307 747.144 / 702.837 425.184 / 425.184 Weight last 48 hrs Weight 125 lb 3.2 oz Weight 126 lb 11.2 oz Weight 126 lb 11.2 oz Weight 133 lb Physical Exam 2 Const: OTHER: GENERAL: Patient is arousable and but confused however she told me she is in the hospital HEART: Regular S1 and S2. No murmur, rub or gallop. LUNGS: Clear to auscultate bilaterally. CENTRAL NERVOUS SYSTEM: Grossly nonfocal. EXTREMITIES: Lower extremities without edema Urinary Catheter Management: Rainey: Cath Placed During This Visit: no Reason for Continuing Indwelling Catheter: Accurate Measurement of Urinary Output in Critically Ill Patients Data 06/07/24 03:24 06/07/24 03:24 Micro: Microbiology 06/06/24 03:56 Blood Culture - Preliminary Blood NEGATIVE TO DATE 06/06/24 03:02 Blood Culture - Preliminary Blood NEGATIVE TO DATE A&P Assessment and plan (1) Altered mental status: Could be multifactorial including CVA metabolic infectious and secondary to medicine. Less likely side effect of flecainide contributing to altered mental status however at this point we will discontinue it with other medications. Medicine to rule out CVA infection and metabolic causes. Today patient told me she is in hospital but she appeared to be restless. Vitals are stable she is on dopamine, she is in sinus rhythm. Once cleared for acute stroke or head bleed may need to put her back on anticoagulation On today's visit patient appeared to be more alert awake and oriented. Rule out for CVA by CT CTA, white cell count is high continue antibiotics. Will introduce low-dose beta-eliel metoprolol 12.5 mg once a day. Continue valsartan (2) Atrial fibrillation: Remained in sinus rhythm will introduce beta-eliel 12.5 mg once a day Qualifiers: Atrial fibrillation type: paroxysmal Qualified Code(s): I48.0 - Paroxysmal atrial fibrillation (3) NSTEMI (non-ST elevated myocardial infarction): Type II demand ischemia related, no need of stress test or angiogram. (4) Essential hypertension: Will start back on valsartan 80 mg Attestations 2 Medical Necessity Statement*: Patient require continuation hospitalization for above defined care Coding Level of Care Code Acute Code for [facility] Fwd Diagnoses Altered mental status R41.82 Paroxysmal atrial fibrillation I48.0 Atrial fibrillation type: paroxysmal NSTEMI (non-ST elevated myocardial infarction) I21.4 Essential hypertension I10
[2024-06-08] VITALS (36 sets, daily range): BP systolic 116–168; BP diastolic 53–103; PULSE 65–165; RESP 11–31; TEMP 36.6–37.2; O2SAT 89–99; BMI 23.3
[2024-06-08] MEDS: acyclovir 500 MG in sodium chloride 0.9% (plus) 100 ML 110 MG IV ×3 (01:16→16:53)
[2024-06-08] MEDS: sodium chloride 0.9% 1,000 ML 75 ML IV ×2 (01:19→13:16)
[2024-06-08] MEDS: aspirin 81 mg EC Tablet PO (08:05)
[2024-06-08] MEDS: enoxaparin 40 mg/0.4 mL Syringe 60 MG SUBCUT (08:05)
[2024-06-08] MEDS: losartan 50 mg Tablet 25 MG PO (08:05)
--- NOTE | 2024-06-08 09:09 | P.PN_ITS ---
Subjective 2 Subjective: Off dopamine drip since 9 PM yesterday Transfer out of ICU No overnight events Pleasant cooperative Afebrile MRI head is pending Vitals/I&O/Wt Last Vital Signs Temp 98.0 F 06/08/24 04:00 Pulse 84 06/08/24 08:30 Resp 20 H 06/08/24 08:30 BP 160/74 06/08/24 08:30 Pulse Ox 97 06/08/24 08:30 O2 Del Method Room Air 06/08/24 08:30 O2 Flow Rate 2 06/07/24 07:44 06/07/24 06/08/24 06/08/24 22:59 06:59 14:59 Intake Total 350 / 7867.828 0155 / 3185.184 200 / 200 Output Total 1550 / 2750 600 / 3350 Balance -1200 / -774.816 610 / -164.816 200 / 200 Weight last 48 hrs Weight 57.833 kg Weight 56.79 kg Physical Exam 2 Narrative: Awake and alert NIH 0 Nonfocal neuroexam Pleasant above Multiple scratches on her extremities with ecchymosis Pleasant cooperative nonfocal neuroexam Hemodynamically stable Abdomen soft Urinary Catheter Management: Rainey: Cath Placed During This Visit: no Reason for Continuing Indwelling Catheter: Accurate Measurement of Urinary Output in Critically Ill Patients Data 06/07/24 03:24 06/07/24 03:24 A&P Assessment and plan (1) Altered mental status: (2) Acute metabolic encephalopathy: (3) Metabolic encephalopathy: (4) Bradycardia: (5) Sick sinus syndrome: (6) Essential hypertension: (7) NSTEMI (non-ST elevated myocardial infarction): Plan Metabolic encephalopathy: Resolved No typical signs ofMeningitis Continue acyclovir which will be discontinued after MRI report today Continue fluids until then Patient remained afebrile Nonfocal neuroexam Head CT unremarkable Continue doxycycline Could be related to bradycardia Sick sinus syndrome, Plan for pacemaker as of yet by cardiology Bradycardia has improved Start low-dose metoprolol Transfer out of ICU Appointment drip turned off 06/07 at 9 PM Plan for stress test or angiogram by cardiology No active chest pain Type II IA? Hypertension: Added losartan, added amlodipine, low-dose metoprolol Full code Cardiac diet Will start Eliquis on Sunday Which is her home regimen for A-fib Attestations 2 Medical Necessity Statement*: Transfer out of ICU Diagnoses Altered mental status R41.82 Acute metabolic encephalopathy G93.41 Metabolic encephalopathy G93.41 Bradycardia R00.1 Sick sinus syndrome I49.5 Essential hypertension I10 NSTEMI (non-ST elevated myocardial infarction) I21.4
[2024-06-08] MEDS: albuterol 2.5 mg/3 mL Neb INHALATION (09:57)
--- NOTE | 2024-06-08 10:39 | ECG_ITS ---
[facility] Test Date: 2024-06-08 Pat Name: Hyacinth Hill Department: Room: ICU03 Gender: Female Fence Maker: : [id number] Requested By: Natty Hunt Order Number: [id number] Vielka MD: Kaushal Ngo M.D. Measurements Intervals [place] Rate: 150 P: 0 MT: 0 QRS: 4 QRSD: 107 T: 9 QT: 321 QTc: 507 Interpretive Statements ATRIAL FIBRILLATION WITH RAPID VENTRICULAR RESPONSE ST DEPRESSION, CONSIDER SUBENDOCARDIAL INJURY [0.1+ mV ST DEPRESSION] WARNING: DATA QUALITY MAY AFFECT INTERPRETATION Compared to ECG 06/06/2024 09:28:49 ST (T wave) deviation now present Incomplete right bundle-branch block no longer present Electronically Signed On 06-08-2024 20:08:21 CDT by Kaushal Ngo M.D. [email or web address]
--- NOTE | 2024-06-08 11:00 | MRR_ITS ---
PROCEDURE INFORMATION: Exam: MR Head Without Contrast Exam date and time: 06/08/2024 8:56 AM Age: 73 years old Clinical indication: Altered mental status/memory loss; Confusion or disorientation; Additional info: AMS, confusion TECHNIQUE: Imaging protocol: Magnetic resonance imaging of the head without contrast. COMPARISON: CT angio headneck* [id number] 06/06/2024 3:23 AM FINDINGS: Brain: Normal. No acute infarct. No hemorrhage. No significant white matter disease. No edema. Cerebral ventricles: Normal. No ventriculomegaly. Bones: Unremarkable. Paranasal sinuses: Normal as visualized. No acute sinusitis. Mastoid air cells: Normal as visualized. No mastoid effusion. Orbital cavities: Post bilateral cataract surgery. Soft tissues: Unremarkable. MR/MR head wo con* [id number] IMPRESSION: No acute infarct. No intracranial bleed.
[2024-06-08] MEDS: amiodarone 150 MG/100 ML PREMIX 400 MG IV (11:18)
[2024-06-08] MEDS: doxycycline 100 MG in sodium chloride 0.9% (plus) 100 ML IV ×2 (11:28→23:57)
--- NOTE | 2024-06-08 13:14 | P.PN_ITS ---
Subjective 2 Subjective: Patient had episode of A-fib with RVR this morning. She is off dopamine drip since yesterday and not on flecainide since admission Medications: Medication Review Details: Feeling overall fine denies any complaint Vitals/I&O/Wt Last Vital Signs Temp 97.8 F 06/08/24 12:00 Pulse 109 H 06/08/24 12:00 Resp 17 06/08/24 12:00 BP 136/59 06/08/24 12:00 Pulse Ox 90 06/08/24 12:00 O2 Del Method Room Air 06/08/24 12:00 O2 Flow Rate 2 06/07/24 07:44 06/07/24 06/08/24 06/08/24 22:59 06:59 14:59 Intake Total 350 / 2713.032 9101 / 3185.184 510 / 510 Output Total 1550 / 2750 600 / 3350 1150 / 1150 Balance -1200 / -774.816 610 / -164.816 -640 / -640 Weight last 48 hrs Weight 127 lb 8 oz Weight 125 lb 3.2 oz Physical Exam 2 Const: OTHER: GENERAL: Alert awake oriented x 3 HEART: R irregularly irregular S1 and S2. No murmur, rub or gallop. LUNGS: Clear to auscultate bilaterally. CENTRAL NERVOUS SYSTEM: Grossly nonfocal. EXTREMITIES: Lower extremities without edema Urinary Catheter Management: Rainey: Cath Placed During This Visit: no Reason for Continuing Indwelling Catheter: Accurate Measurement of Urinary Output in Critically Ill Patients Data 06/07/24 03:24 06/07/24 03:24 A&P Assessment and plan (1) Altered mental status: Could be multifactorial including CVA metabolic infectious and secondary to medicine. Less likely side effect of flecainide contributing to altered mental status however at this point we will discontinue it with other medications. Medicine to rule out CVA infection and metabolic causes. Today patient told me she is in hospital but she appeared to be restless. Vitals are stable she is on dopamine, she is in sinus rhythm. Once cleared for acute stroke or head bleed may need to put her back on anticoagulation On today's visit patient appeared to be more alert awake and oriented. Rule out for CVA by CT CTA, white cell count is high continue antibiotics. Will introduce low-dose beta-eliel metoprolol 12.5 mg once a day. Continue valsartan Patient much better and improved (2) Atrial fibrillation: I will start patient on IV amiodarone once cardioverted will switch her to p.o. 200 mg twice daily continue anticoagulation in the form of Eliquis Qualifiers: Atrial fibrillation type: paroxysmal Qualified Code(s): I48.0 - Paroxysmal atrial fibrillation (3) NSTEMI (non-ST elevated myocardial infarction): Secondary demand ischemia, no further testing needed (4) Essential hypertension: Blood pressure has improved. Continue to monitor Attestations 2 Medical Necessity Statement*: Patient require continuation hospitalization for above defined Coding Level of Care Code Acute Code for [facility] Fwd Diagnoses Altered mental status R41.82 Paroxysmal atrial fibrillation I48.0 Atrial fibrillation type: paroxysmal NSTEMI (non-ST elevated myocardial infarction) I21.4 Essential hypertension I10
--- NOTE | 2024-06-08 14:02 | PC.NURSE ---
Brief cardiac pause noted on monitor, patient convert to SR, Dr. Calhoun notified, order to give 200mg PO Amioadrone now and in 1hr stop amiodarone drip. Order received for 200mg PO Amioadrone BID start Saturday 06/09. Order received to stop Lovenox and start Eliquis 5mg PO,and BID starting Saturday 06/09. Telephone order RBV.
[2024-06-08] MEDS: amiodarone 200 mg Tablet PO (14:14)
[2024-06-08] MEDS: doxycycline 100 mg Tablet PO (16:55)
--- NOTE | 2024-06-08 17:45 | PC.NURSE ---
Report called to [facility] [id number], patient transported on room air, medications infusing per mar, via wheelchair. Room 251-2. Belongings with daughter.
[2024-06-08] MEDS: apixaban 5 mg Tablet PO (21:16)
[2024-06-09] VITALS (8 sets, daily range): BP systolic 130–195; BP diastolic 60–84; PULSE 64–78; RESP 16–17; TEMP 36.4–36.9; O2SAT 93–96
[2024-06-09] MEDS: acyclovir 500 MG in sodium chloride 0.9% (plus) 100 ML 110 MG IV (02:45)
[2024-06-09] MEDS: sodium chloride 0.9% 1,000 ML 75 ML IV (03:45)
[2024-06-09 04:28] LABS: Basophils # 0.1 10^3/uL (0.0-0.1); Basophils % 0.8 %; Eosinophils # 0.4 10^3/uL (0.0-0.8); Eosinophils % 3.4 %; Hematocrit 30.4 % (36-47); Lymphocytes # 3.8 10^3/uL (0.8-4.8); Lymphocytes % 37.3 %; Mean Corpuscular HGB Conc 31.3 g/dL (30-55); Mean Corpuscular Hemoglobin 29.1 pg (27-33); Mean Platelet Volume 12.6 fL (7.4-10.4); Monocytes # 1.1 10^3/uL (0.2-0.9); Monocytes % 11.1 %; Neutrophils # 4.85 10^3/uL (1.8-7.7); Nucleated Red Blood Cells % 0 %; Platelet Count 287 10^3/cmm (157-399); Red Blood Count 3.27 10^6/uL (3.85-5.65)
[2024-06-09 04:47] LABS: Anion Gap 13.7 (5-19); Blood Urea Nitrogen 7 mg/dL (8-23); Carbon Dioxide 22 mmol/L (22-29); Chloride 110 mmol/L (98-107); Glucose 78 mg/dL (65-115); Osmolality Calculated 291 mOsm/kg (285-295); Potassium 3.7 mmol/L (3.5-5.1); Sodium 142 mmol/L (136-145)
--- NOTE | 2024-06-09 07:33 | PM.PN ---
Subjective Subjective: Patient is doing well. no chest pain. Vitals/I&O/Wt Last Vital Signs Temp 97.9 F 06/09/24 04:00 Pulse 64 06/09/24 05:39 Resp 16 06/09/24 04:00 BP 150/60 06/09/24 04:00 Pulse Ox 93 06/09/24 04:00 O2 Del Method Room Air 06/09/24 04:00 O2 Flow Rate 2 06/07/24 07:44 06/08/24 06/09/24 06/09/24 22:59 06:59 14:59 Intake Total 252.227 / 9992.112 8300 / 3149.025 Output Total 1100 / 3850 Balance 252.227 / -810.975 110 / -700.975 Weight last 48 hrs Weight 131 lb 1.6 oz Weight 127 lb 8 oz Physical Exam Const: OTHER: GENERAL: Alert awake oriented x 3 HEART: R irregularly irregular S1 and S2. No murmur, rub or gallop. LUNGS: Clear to auscultate bilaterally. CENTRAL NERVOUS SYSTEM: Grossly nonfocal. EXTREMITIES: Lower extremities without edema Urinary Catheter Management: Rainey: Cath Placed During This Visit: no Reason for Continuing Indwelling Catheter: Other Data 06/09/24 03:00 06/09/24 03:00 A&P Assessment and plan (1) Altered mental status: (2) Atrial fibrillation: Qualifiers: Atrial fibrillation type: paroxysmal Qualified Code(s): I48.0 - Paroxysmal atrial fibrillation (3) NSTEMI (non-ST elevated myocardial infarction): (4) Essential hypertension: Plan Patient stable from cardiac standpoint. Outpatient event monitor. Continue anticoagulation and amiodarone. Thank you for involving us with care of this patient. Please call with questions. Attestations Medical Necessity Statement*: Care expected to cross 2 midnights. Coding Level of Care Code Acute Code for [facility] Fw Diagnoses Altered mental status R41.82 Paroxysmal atrial fibrillation I48.0 Atrial fibrillation type: paroxysmal NSTEMI (non-ST elevated myocardial infarction) I21.4 Essential hypertension I10
--- NOTE | 2024-06-09 09:07 | PC.CHAP ---
Pastoral Care Encounter/Spiritual Assessment Type of Contact [] Declined sas administrator visit [] Patient/Family/Request visit [] Outpatient visit [] Follow-up visit [] Physician referral [] Code/Alert [x] Routine visit [] Staff referral [] Actively dying [] Patient sleeping [] Family support [] [] Out of room [] Palliative care [] [] Receiving care in room [] Pre-surgical visit [] Trauma [] Long length of stay [] ICU visit [] Other: Relational/Emotional Strength [] Patient feels connected with others/family/visitors/staff [] Distress [] Loneliness/isolation [] Abandonment Spirituality of Patient [x] Person of Emilie [] Attends Spiritism of their Emilie [x] Believes in Prayer [] Reads Bible or Sikh materials [] There are Spiritual issues to be addressed Quality Facilitator Interventions [x] Prayer [x] Active listening [] Non-anxious presence [] Spiritual/emotional support [] Crisis/trauma care [] Spiritual counseling [] Bereavement support [] Provided bereavement packet [x] Provided Bible/devotional materials [] Provided toy/stuffed animal, coloring book to patient or family member [] Provided Communion [] Anointing/Pioneer [] Salvation [x] Completed spiritual assessment [] Other: Impact on Illness or Injury [] Angry [] Fearful [] Anxious [] Often cries [] Exhaustion [] Unable to work [] Unable to attend yazidi [] Unable to walk/stand [] Unable to read [] Unable to drive [] Unable to eat/drink [] Unable to sleep [] Unable to be with family [] Patient intubated [] Other: Summary Time spent with patient 10 min
[2024-06-09] MEDS: losartan 50 mg Tablet 25 MG PO (09:12)
[2024-06-09] MEDS: amiodarone 200 mg Tablet PO (09:12)
[2024-06-09] MEDS: amlodipine 10 mg Tablet PO (09:12)
[2024-06-09] MEDS: doxycycline 100 mg Tablet PO (09:13)
[2024-06-09] MEDS: apixaban 5 mg Tablet PO (09:13)
[2024-06-09] MEDS: aspirin 81 mg EC Tablet PO (09:13)
--- NOTE | 2024-06-09 10:38 | P.DS_ITS ---
Discharge Providers Date of Admission: 06/06/24 05:01 Date of Discharge: June 09, 2024 Attending Provider at Admission: Jan Phillips MD Attending Provider at Discharge: Natty Hunt MD Primary Care Provider: TRINI Bullock Diagnoses at Discharge Discharge Diagnosis (1) Altered mental status: Status: Acute (2) Atrial fibrillation: Status: Acute Qualifiers: Atrial fibrillation type: paroxysmal Qualified Code(s): I48.0 - Paroxysmal atrial fibrillation (3) NSTEMI (non-ST elevated myocardial infarction): Status: Acute (4) Essential hypertension: Status: Acute Reason for Visit Reason for Visit: Resp Distress Hospital Course Hospital Course 73-year-old female who was admitted for management evaluation of altered mental status, she remained afebrile nonfocal neuroexam was noted on examination, she did not show signs of meningitis or encephalitis, remained encephalopathic with bradycardia and hypotension required dopamine drip, please note she started taking flecainide few days before her arrival in the ER, she was evaluated by neurologist who recommended addition of acyclovir, I added IV fluids and doxycycline, as per the family deliver around in the [facility]. has not noted any tick bite on his . Patient remained hemodynamic stable, within 24 hours patient mentation started improving, she was able to eat, make conversation, we were able to wean off dopamine drip after 24 hours. She went into A-fib RVR heart rate 140s, there was concern for sick sinus syndrome tachybradycardia syndrome and indication for pacemaker along with non-STEMI, she was started on ACS protocol as well, cardiology did not recommend stress or angiogram related to type II RI, for her A-fib she will receive amiodarone 200 mg bid and metoprolol 12.5 mg once a day and continuation of anticoagulating agent. Patient will be discharged with event monitor. Please note throughout hospitalization patient remained on acyclovir and doxycycline. MRI head unremarkable. Antibiotics were discontinued after reviewing MRI report. Etiology of metabolic encephalopathy/confusion seems to be related to bradycardia. Threshold for pacemaker placement will stay low in case she gets more bradycardic episodes in future as per cardiology. Physical Exam Narrative: Awake and alert A-fib heart rate well-controlled 78, hemodynamically stable Afebrile Awake GCS 15 nonfocal neuroexam No sign of meningitis Urinary Catheter Management: Rainey: Cath Placed During This Visit: no Reason for Continuing Indwelling Catheter: Other Discharge Data Studies Completed and Pending Completed Studies During Hospitalization Category Date Time Status CT abdomen pelvis wo con [id number] Routine Cat Scan 06/06/24 09:[address] head wo con* [id number] Stat Cat Scan 06/06/24 02:35 Completed CTA head neck [CT angio headneck* [id number]] Stat Cat Scan 06/06/24 03:02 Completed XR chest 1V portable [id number] Stat Exams 06/06/24 02:35 Completed MR head wo con* [id number] Routine MRI 06/08/24 11:00 Completed CV. echo complete* [id number] Routine Ultrasound 06/06/24 05:24 Completed US liver [id number] Routine Ultrasound 06/06/24 11:02 Completed Pending at discharge Category Date Time Status Blood Culture Stat Lab 06/06/24 03:56 Results Osmolality Serum Routine Lab 06/06/24 03:02 Received Radiology Impressions Chest X-Ray 06/06/24 02:35 IMPRESSION: 1. Mild cardiomegaly with possible mild vascular congestion. No focal consolidation identified. Head CT 06/06/24 02:35 IMPRESSION: No acute intracranial abnormality. Head/Neck CTA 06/06/24 03:02 IMPRESSION: No large vessel stenosis or occlusion. IMPRESSION: Limited exam secondary to motion artifact. No obvious occlusion is identified. Recommend repeating exam when patient is better able to hold still. REFERENCES: NASCET CRITERIA. The degree of stenosis in the cervical segment of the internal carotid artery is based on NASCET criteria. Normal is no stenosis. Mild is less than 50% stenosis. Moderate is 50-69% stenosis. Severe is 70% to 99% stenosis. Total occlusion is no detectable patent lumen. Abdomen/Pelvis CT 06/06/24 09:57 IMPRESSION: 1. Study is compromised by breathing motion artifact. 2. Limited evaluation of the kidneys. Abscess, mass or pyelonephritis or obstruction would be obscured. 3. Vicarious excretion of contrast into the gallbladder. 4. Mild constipation. There is no obstructing process. Very minimal soft tissue thickening at the ileocecal valve but there is no obstruction. If colonoscopy has not been performed recently this may be of benefit. 5. LEFT lobe hepatic cyst. 6. Dependent changes at the lung bases. Liver Ultrasound 06/06/24 11:02 IMPRESSION: 1. Slightly bilobed stable LEFT hepatic cyst since at least 05/08/2023. No solid mass. 2. Negative gallbladder. Head MRI 06/08/24 11:00 IMPRESSION: No acute infarct. No intracranial bleed. Laboratory Results WBC 10.30 10^3/uL (3.29-11.43) 06/09/24 03:00 RBC 3.27 10^6/uL (3.85-5.65) L 06/09/24 03:00 Hgb 9.50 g/dL (11.27-16.99) L 06/09/24 03:00 Hct 30.4 % (36-47) L 06/09/24 03:00 MCV 93.0 fl (85-98) 06/09/24 03:00 MCH 29.1 pg (27-33) 06/09/24 03:00 MCHC 31.3 g/dL (30-55) 06/09/24 03:00 RDW 14.0 % (12.1-15.1) 06/09/24 03:00 Plt Count 287 10^3/cmm (157-399) 06/09/24 03:00 MPV 12.6 fL (7.4-10.4) H 06/09/24 03:00 Neut % (Auto) 47.0 % 06/09/24 03:00 Lymph % (Auto) 37.3 % 06/09/24 03:00 Mckinley % (Auto) 11.1 % 06/09/24 03:00 Eos % (Auto) 3.4 % 06/09/24 03:00 Baso % (Auto) 0.8 % 06/09/24 03:00 Neut # (Auto) 4.85 10^3/uL (1.8-7.7) 06/09/24 03:00 Lymph # (Auto) 3.8 10^3/uL (0.8-4.8) 06/09/24 03:00 Mckinley # (Auto) 1.1 10^3/uL (0.2-0.9) H 06/09/24 03:00 Eos # (Auto) 0.4 10^3/uL (0.0-0.8) 06/09/24 03:00 Baso # (Auto) 0.1 10^3/uL (0.0-0.1) 06/09/24 03:00 Nucleated RBC % (auto) 0 % 06/09/24 03:00 Nucleated RBCs # 0.0 /100WBC 06/09/24 03:00 PT 14.60 SECONDS (12.1-14.9) 06/06/24 03:02 INR 1.10 (0.8-1.2) 06/06/24 03:02 APTT 25.7 SECONDS (23.9-36.7) 06/06/24 03:02 Specimen Type Arterial 06/06/24 06:15 Sample Site Radial, left 06/06/24 06:15 ABG pH 7.31 (7.35-7.45) L 06/06/24 06:15 ABG pCO2 39.4 mmHg (35-45) 06/06/24 06:15 ABG pO2 75.9 mmHg (80.0-100.0) L 06/06/24 06:15 ABG HCO3 19.7 mmol/L (22-26) L 06/06/24 06:15 ABG O2 Saturation 94.8 06/06/24 06:15 ABG Base Excess -6.2 mmol/L (-2.0-2.0) L 06/06/24 06:15 Compa Test Pos 06/06/24 06:15 A-a O2 Gradient 3.2 mmHg (5-10) L 06/06/24 06:15 Hematocrit 33.4 % (37-47) L 06/06/24 06:15 Hgb O2 Saturation 93.5 % (95-100) L 06/06/24 06:15 Carboxyhemoglobin 0.6 %THgb (0.4-20.1) 06/06/24 06:15 Methemoglobin 0.8 % (0.4-1.5) 06/06/24 06:15 Total Hemoglobin 10.9 g/dL (12-16) L 06/06/24 06:15 Sodium 141.0 mmol/L (131-143) 06/06/24 06:15 Potassium 4.2 mmol/L (3.5-5.0) 06/06/24 06:15 Glucose 155.0 mg/dL (70-115) H 06/06/24 06:15 Ionized Calcium 1.2 mmol/L (1.1-1.4) 06/06/24 06:15 O2 Delivery Device Oxy mask 06/06/24 06:15 O2 Liters/Min 8.0 % 06/06/24 06:15 Geospatial Applications Developer ID Anonymous 06/06/24 06:15 Sodium 142 mmol/L (136-145) 06/09/24 03:00 Potassium 3.7 mmol/L (3.5-5.1) 06/09/24 03:00 Chloride 110 mmol/L (98-107) H 06/09/24 03:00 Carbon Dioxide 22 mmol/L (22-29) 06/09/24 03:00 Anion Gap 13.7 (5-19) 06/09/24 03:00 BUN 7 mg/dL (8-23) L 06/09/24 03:00 Creatinine 0.6 mg/dL (0.5-0.9) 06/09/24 03:00 GFR Calculation Not Reportable 06/09/24 03:00 Glucose 78 mg/dL (65-115) 06/09/24 03:00 Estimat Average Glucose 120 06/06/24 03:02 Hemoglobin A1c 5.8 % (4.0-6.0) 06/06/24 03:02 Calculated Osmolality 291 mOsm/kg (285-295) 06/09/24 03:00 Lactic Acid 2.8 mmol/L (0.5-2.2) H 06/06/24 03:02 Lactic Acid (Sepsis) 2.3 mmol/L (0.5-2.2) H 06/06/24 10:26 Calcium 8.0 mg/dL (8.5-10.5) L 06/09/24 03:00 Phosphorus 2.2 mg/dL (2.5-4.5) L 06/07/24 03:24 Magnesium 2.1 mg/dL (1.7-2.3) 06/07/24 03:24 Total Bilirubin 0.3 mg/dL (0.15-1.2) 06/07/24 03:24 AST 40 U/L (0-32) H 06/07/24 03:24 ALT 34 U/L (0-33) H 06/07/24 03:24 Alkaline Phosphatase 47 U/L (35-105) 06/07/24 03:24 Ammonia 29 umol/L (11-51) 06/06/24 10:26 Troponin T Baseline 12 ng/L (0-10) H 06/06/24 03:02 Troponin T Hi Sens 6Hr 184.7 ng/L (0-10) H 06/06/24 10:26 Troponin T Hi Sens 6Hr Delta 172.7 ng/L (0-12) H* 06/06/24 10:26 C-Reactive Protein 7.6 mg/L (0.0-4.9) H 06/06/24 03:02 Total Protein 6.4 g/dL (6.6-8.7) L 06/07/24 03:24 Albumin 3.3 g/dL (3.5-5.2) L 06/07/24 03:24 Globulin 3.1 g/dL (1.3-4.6) 06/07/24 03:24 Triglycerides 221 mg/dL (0-150) H 06/06/24 03:02 Cholesterol 155 mg/dL (0-200) 06/06/24 03:02 LDL Cholesterol, Calc 68 mg/dL (50-129) 06/06/24 03:02 HDL Cholesterol 43 mg/dL (60-100) L 06/06/24 03:02 LDL/HDL Ratio 1.58 RATIO (0.00-3.22) 06/06/24 03:02 Cholesterol/HDL Ratio 3.60 mg/dL (0.0-4.40) 06/06/24 03:02 Tumor Marker AFP 3.9 ng/mL (0-8.3) 06/06/24 10:26 Procalcitonin 0.03 ng/mL (0-0.5) 06/06/24 03:02 TSH 5.16 uIU/mL (0.27-4.20) H 06/06/24 03:02 Free T4 1.38 ng/dL (0.82-1.77) 06/06/24 03:02 Urine Color Yellow (Yellow) 06/06/24 03:02 Urine Appearance Clear (CLEAR) 06/06/24 03:02 Urine pH 8.0 (5-7) A 06/06/24 03:02 Ur Specific [place] 1.012 (1.005-1.030) 06/06/24 03:02 Urine Protein 1+ (Negative) A 06/06/24 03:02 Urine Glucose (UA) Negative (Normal) 06/06/24 03:02 Urine Ketones Negative (Negative) 06/06/24 03:02 Urine Blood Negative (Negative) 06/06/24 03:02 Urine Nitrate Negative (Negative) 06/06/24 03:02 Urine Bilirubin Negative (Negative) 06/06/24 03:02 Urine Urobilinogen 1.0 mg/dL (Negative) 06/06/24 03:02 Ur Leukocyte Esterase Negative (Negative) 06/06/24 03:02 Urine RBC 0-2 /hpf (0-2) 06/06/24 03:02 Urine WBC 0-5 /hpf (0-5) 06/06/24 03:02 Ur Squamous Epith Cells 0-5 /hpf (0-5) 06/06/24 03:02 Amorphous Sediment Not Reportable 06/06/24 03:02 Urine Bacteria None seen /hpf (NONE) 06/06/24 03:02 Hyaline Casts 2.87 /lpf 06/06/24 03:02 Urine Opiates Screen Negative ng/mL (Negative) 06/06/24 03:02 Ur Barbiturates Screen Negative ng/mL (Negative) 06/06/24 03:02 Ur Phencyclidine Scrn Negative ng/mL (Negative) 06/06/24 03:02 Ur Amphetamines Screen Negative ng/mL (Negative) 06/06/24 03:02 U Benzodiazepines Scrn Negative ng/mL (Negative) 06/06/24 03:02 Urine Cocaine Screen Negative ng/mL (Negative) 06/06/24 03:02 U Marijuana (THC) Screen Negative ng/mL (Negative) 06/06/24 03:02 Ethyl Alcohol < 10 mg/dL (0-10) 06/06/24 03:02 Vitals Last Vital Signs Temp 97.5 F L 06/09/24 07:57 Pulse 78 06/09/24 08:42 Resp 16 06/09/24 08:42 BP 174/80 06/09/24 09:12 Pulse Ox 94 06/09/24 08:42 O2 Del Method Room Air 06/09/24 08:42 O2 Flow Rate 2 06/07/24 07:44 Discharge Plan Discharge Patient Disposition: Home Condition: Stable Prescriptions: New metoprolol tartrate 25 mg tablet 12.5 mg PO DAILY Qty: 60 2RF doxycycline monohydrate 100 mg Tablet 100 mg PO BID Qty: 6 0RF amiodarone [Pacerone] 200 mg Tablet 200 mg PO BID Qty: 60 4RF Rx Instructions: Do not take if heart rate below 60 Continued tramadol 50 mg tablet 25 - 50 mg PO DAILY PRN (Reason: Pain) cholecalciferol (vitamin D3) 1,250 mcg (50,000 unit) capsule 1,250 mcg PO .WEEKLY 90 Days Qty: 12 1RF valsartan 80 mg tablet 80 mg PO DAILY Qty: 90 3RF pravastatin 40 mg tablet 40 mg PO DAILY Premarin 0.625 mg tablet 0.625 mg PO DAILY levalbuterol HCl 1.25 mg/0.5 mL solution for nebulization 1.25 mg inhalation Q4H PRN (Reason: Shortness Of Breath) Rx Instructions: pt needs xopenex due to afib Spiriva Respimat 2.5 mcg/actuation mist 2 puff inhalation DAILY fenofibrate nanocrystallized 145 mg tablet 145 mg PO DAILY Eliquis 5 mg tablet 5 mg PO BID Discontinued flecainide 100 mg tablet 100 mg PO Q12H Qty: 180 6RF metoprolol tartrate 25 mg tablet 25 mg PO DAILY Discharge Orders: Discharge Order (Routine); Ordered 06/09/24 Ordered By: Natty Hunt Referrals: Damon Falcon FNP [Primary Care Provider] - Discharge Diet: Cardiac Discharge Activity: Increase activity as tolerated Patient Instructions: Altered Mental Status (ED), Opioid Safety Activity Restrictions/Additional Instructions: Please do not take metoprolol or amiodarone if your heart rate is below 60 or Do not take metoprolol if heart rate below 60 or blood pressure is below 90/60 mmHg Discharge Attestations Time Spent in Discharge Care*: greater than 30 min Quality Metrics Clinical Quality Measures [ No reported AMI, CVA or VTE this stay] Coding Level of Care Code Acute Code for [facility] Diagnoses Altered mental status R41.82 Paroxysmal atrial fibrillation I48.0 Atrial fibrillation type: paroxysmal NSTEMI (non-ST elevated myocardial infarction) I21.4 Essential hypertension I10
[2024-06-09 12:44] LABS: Osmolality Serum 300 mOsm/kg (278-305)
== END 2024-06-09 13:14 | disposition home or self-care (01) | DRG 70 ==
LOC: ER 02:47 → ICU 05:02 → MEDSURG 06-08 18:10
PROVIDERS: Admitting Provider Internal Medicine; Emergency Provider Emergency Medicine; PCP Registered Nurse; Visit Provider Internal Medicine
DX: G93.41 Metabolic encephalopathy (principal); I21.A1 Myocardial infarction type 2; I48.0 Paroxysmal atrial fibrillation; I10 Essential (primary) hypertension; R00.1 Bradycardia, unspecified; I95.9 Hypotension, unspecified; R74.8 Abnormal levels of other serum enzymes; K59.00 Constipation, unspecified; E78.5 Hyperlipidemia, unspecified; J45.20 Mild intermittent asthma, uncomplicated; Z79.01 Long term (current) use of anticoagulants; Z87.891 Personal history of nicotine dependence
CPT/HCPCS: 36415; 36600; 70450; 70496; 70498; 70551; 71045; 74176; 76705; 80048; 80051; 80053; 80061; 80306; 80307; 81001; 82105; 82140; 82330; 82805; 83036; 83605; 83735; 83930; 84100; 84145; 84439; 84443; 84484; 85025; 85610; 85730; 86140; 87040; 93005; 93306; 94640; 94664; 96372; 96374; 96375; 96376; 99285; 99291; E0352; J0133; J0283; J0461; J1265; J1650; J1953; J2405; J3490; J7030; J7613; Q9967

== ENCOUNTER → 2024-06-16 12:34 | Outpatient (BNVA) | payer MEDICARE, OTHER, SELFPAY | PROVIDERS: PCP Registered Nurse; Visit Provider Internal Medicine Cardiovascular Disease | DX: R06.02 Shortness of breath (principal); I49.5 Sick sinus syndrome; Z79.01 Long term (current) use of anticoagulants; I48.91 Unspecified atrial fibrillation; I25.118 Atherosclerotic heart disease of native coronary artery with other forms of angina pectoris; R55 Syncope and collapse; J45.909 Unspecified asthma, uncomplicated | CPT/HCPCS: 99215 ==

== ENCOUNTER 2024-06-20 09:59 | Outpatient (CLI) | payer MEDICARE, OTHER, SELFPAY ==
[2024-06-20 10:55] LABS: Basophils # 0.1 10^3/uL (0.0-0.1); Basophils % 1.2 %; Eosinophils # 0.4 10^3/uL (0.0-0.8); Eosinophils % 5.5 %; Hematocrit 37.7 % (36-47); Lymphocytes # 2.7 10^3/uL (0.8-4.8); Lymphocytes % 38.2 %; Mean Corpuscular HGB Conc 31.6 g/dL (30-55); Mean Corpuscular Hemoglobin 29.8 pg (27-33); Mean Corpuscular Volume 94.3 fl (85-98); Mean Platelet Volume 12.1 fL (7.4-10.4); Monocytes # 0.8 10^3/uL (0.2-0.9); Monocytes % 11.2 %; Neutrophils # 3.04 10^3/uL (1.8-7.7); Neutrophils % 43.8 %; Nucleated Red Blood Cells % 0 %; Platelet Count 367 10^3/cmm (157-399); Red Cell Distribution Width 14.6 % (12.1-15.1); White Blood Count 6.94 10^3/uL (3.29-11.43)
[2024-06-20 11:06] LABS: INR 1.49 (0.8-1.2)
[2024-06-20 11:10] LABS: Anion Gap 14.8 (5-19); Blood Urea Nitrogen 14 mg/dL (8-23); Calcium 9.5 mg/dL (8.5-10.5); Carbon Dioxide 24 mmol/L (22-29); Chloride 106 mmol/L (98-107); Glucose 101 mg/dL (65-115); Osmolality Calculated 291 mOsm/kg (285-295); Potassium 4.8 mmol/L (3.5-5.1); Sodium 140 mmol/L (136-145)
== END 2024-06-20 10:00 | disposition home or self-care (01) ==
LOC: LAB 10:02
PROVIDERS: Absent Provider Internal Medicine Cardiovascular Disease; PCP Registered Nurse; Visit Provider Internal Medicine Cardiovascular Disease
DX: I25.118 Atherosclerotic heart disease of native coronary artery with other forms of angina pectoris (principal); Z79.01 Long term (current) use of anticoagulants; I48.91 Unspecified atrial fibrillation
CPT/HCPCS: 36415; 80048; 85025; 85610; 86850; 86900

== ENCOUNTER 2024-06-25 05:51 | Outpatient (CLI) | payer MEDICARE, OTHER, SELFPAY ==
[2024-06-25] VITALS (14 sets, daily range): BP systolic 119–196; BP diastolic 64–75; PULSE 63–79; RESP 12–18; TEMP 36.4–36.7; O2SAT 93–98; BMI 22.1; BMI 23.3
--- NOTE | 2024-06-25 07:19 | W.PM.OPSUD ---
Surgery/Procedure H&P Update DATE OF PROCEDURE: June 25, 2024 DATE H&P PERFORMED: 06/16/24 H&P UPDATE INFORMATION: I have reviewed H&P completed within last 30 days, I have examined patient prior to procedure and No changes to prior documentation PREOP DIAGNOSIS: Atrial fibrillation/symptomatic bradycardia PRIMARY INDICATION FOR PROCEDURE: Dizziness/syncope/prolonged pauses/atrial fibrillation PLANNED PROCEDURE: Operation Date: 06/25/24 07:00 Proposed Procedures p Pacemaker Insertion PPM Insertion(Not Applicable) - Hong Kenyon MD PATIENT REASSESSED PRIOR TO SEDATION, WITH NO CHANGE NOTED: Yes PHYSICAL EXAM: alert, oriented x 3, clear to auscultation bilaterally and regular rate & rhythm AIRWAY EVAL/ANESTHESIA PLAN: normal airway, see other exam findings, ASA III, Monitored Anesthesia, Local Anesthesia, Risks, benefits & alternatives of sedation and/or procedure discussed and Patient agrees to continue as planned
--- NOTE | 2024-06-25 09:08 | PM.OP ---
Operative Report Date of procedure: June 25, 2024 Surgeon: Hong Kenyon MD Procedure: LOCATION: Outpatient PREOPERATIVE DIAGNOSES: Atrial fibrillation with prolonged pauses/dizziness/near syncope POSTOPERATIVE DIAGNOSES: Same. COMPLICATIONS: None ESTIMATED BLOOD LOSS: None BRIEF HISTORY: 73-year-old white female with a history of atrial fibrillation/hypertension presented with complaints of dizziness/ syncope. She was found to have prolonged pauses of more than 3 seconds associated dizziness, on the monitor. For further management of the patient's condition, a permanent pacemaker implantation was recommended. A single-chamber permanent pacemaker implantation was recommended for further management because of atrial fibrillation. The procedure was explained to the patient in detail with the risks and benefits. The risks of bleeding, hematoma, vascular injury, infection, pneumothorax, myocardial perforation and other concomitant complications were explained in detail, which the patient understood well and consented to proceed. PROCEDURE DESCRIPTION: The patient was brought to the Cardiac Catheterization Lab. The left and the right side of the neck and the subclavian area were cleaned and draped in a sterile fashion. 1% Xylocaine was used as the local anesthetic agent. A left subclavian venous access was obtained using a micropuncture needle system, under fluoroscopic guidance, after injecting 20 mL of Omnipaque in the left antecubital vein. A 2-inch long incision was made 2.0 centimeters below the midclavicular region. By sharp and blunt dissection, a pacemaker pocket was made. Over the guidewire, a 7-Chinese venous sheath with dilator was advanced. The venous dilator and the guidewire were taken out. A screw-in ventricular lead was advanced through the venous sheath and was positioned towards the right ventricle. Under fluoroscopy guidance, the ventricular lead was positioned toward the right ventricular apex. Good pacing and sensing thresholds were obtained. The lead was secured to the endocardium by advancing the helix. The stability of the lead was tested by gentle twisting movements and also by asking the patient to take some deep breaths and cough The venous sheath was peeled off at this time. The lead was secured to the pectoralis fascia by suturing with 1-0 Surgilon. The pacemaker pocket was copiously irrigated with Vancomycin solution. Complete hemostasis was achieved. Sponge counts were confirmed. The leads was attached to a [employer] generator. The lead was positioned behind the generator and the generator was attached to the pectoralis fascia by suturing with 0 Surgilon. The pocket was closed in layers. Skin was approximated using 4-0 Vicryl. IMPLANTED DEVICES: VENTRICULAR LEAD: Model number: 5076/[id number] Serial number: [id number] Brand: [employer] GENERATOR Model number: W1 SR 01 Serial number: [id number] Brand: [place] XT SR MRI Surescan IMPLANTATION DATA: With the pacing system analyzer, the R-wave sensing was 11.0 millivolts with a lead impedance of 912 ohms and a pacing threshold of 0.75 volts at 0.4 milliseconds. Through the device, the R-wave sensing was 12.0 millivolts with a lead impedance of 931 ohms and a pacing threshold of 0.5 volts at 0.4 milliseconds. The pacemaker was set for VVI mode with lower rate of 60. A pressure dressing was applied over the pacemaker site. The patient was transferred to the Medical Floor in stable condition. A chest x-ray was ordered to confirm the lead position and also to rule out any pneumothorax.
--- NOTE | 2024-06-25 09:15 | SUR.PHASEI ---
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 Status post Pacmaker placement to left upper chest. Pressure bandage and shoulder immobilizer in place. Site is dry and intact with no hematoma formation noted. Vital Signs stable. Call light in easy reach. Family at bedside. Verbal post cath instcutions given. Informed to call for needs.
[2024-06-25] MEDS: ipratropium 0.5 mg/2.5 mL Neb INHALATION ×2 (11:43→16:21)
[2024-06-25] MEDS: ceFAZolin 2,000 mg SDV 2000 MG IVP ×2 (14:01→21:32)
[2024-06-25] MEDS: TRAMadol 50 mg Tablet PO (14:12)
[2024-06-25] MEDS: ergocalciferol (vitamin D2) 50,000 Unit Capsule 50000 UNIT PO (16:01)
[2024-06-25] MEDS: HYDROcodone-acetaminophen 5-325 mg Tablet 1 TAB PO ×2 (17:02→21:45)
[2024-06-25] MEDS: amiodarone 200 mg Tablet PO (17:04)
[2024-06-25] MEDS: sodium chloride 0.9% 1,000 ML 75 ML IV (20:00)
[2024-06-26] VITALS: BP 130/62; PULSE 72; RESP 16; TEMP 36.6; O2SAT 95
[2024-06-26 04:00] VITALS: BP 150/67; PULSE 68; RESP 16; TEMP 36.6; O2SAT 95
[2024-06-26] MEDS: ceFAZolin 2,000 mg SDV 2000 MG IVP (05:58)
[2024-06-26] MEDS: ondansetron 2 mg/ML SDV 2 mL 4 MG IVP (06:05)
--- NOTE | 2024-06-26 06:25 | ECG_ITS ---
[facility] Test Date: 2024-06-26 Pat Name: Hyacinth Hill Department: Room: 277 Gender: Female [place] Debeader: : 1950 Requested By: Hong Kenyon Order Number: [id number] Vielka MD: Kaushal Ngo M.D. Measurements Intervals Sullivan Rate: 66 P: 58 MT: 222 QRS: 5 QRSD: 103 T: 1 QT: 419 QTc: 441 Interpretive Statements SINUS RHYTHM WITH FIRST DEGREE AV BLOCK LOW QRS VOLTAGE IN PRECORDIAL LEADS [QRS DEFLECTION < 1.0 mV IN CHEST LEADS] POSSIBLE ANTERIOR MYOCARDIAL INFARCTION , PROBABLY OLD [30 ms Q WAVE IN V3/V4, OR R < 0.2 mV IN V4] Compared to ECG 06/08/2024 10:48:13 First degree AV block now present Low QRS voltage now present Myocardial infarct finding now present Atrial fibrillation no longer present ST (T wave) deviation no longer present Electronically Signed On 06-26-2024 14:51:46 CDT by Kaushal Ngo M.D. [email or web address]
--- NOTE | 2024-06-26 06:37 | XR_ITS ---
WS: [id number] Examination: XR chest 1V portable [id number] Reason for Exam: Post pacemaker, evaluate lead position Date: 06/26/2024 Comparison: 06/06/2024 Findings: The heart is enlarged. The mediastinum is not widened. In the interval there is been placement of a right ventricular pacer lead. There is no pneumothorax The lungs are hyperinflated. There is no failure. Suspected left basilar linear atelectasis. XR/XR chest 1V portable [id number] Impression: Interval placement of the right ventricular pacer lead. No pneumothorax is seen .
[2024-06-26 07:01] VITALS: PULSE 68
[2024-06-26 08:00] VITALS: BP 151/65; PULSE 65; PULSE 76; RESP 18; TEMP 36.7; O2SAT 95
[2024-06-26] MEDS: ipratropium 0.5 mg/2.5 mL Neb INHALATION (08:44)
[2024-06-26] MEDS: fenofibrate 145 mg Tablet PO (09:40)
[2024-06-26] MEDS: losartan 50 mg Tablet PO (09:40)
[2024-06-26] MEDS: amiodarone 200 mg Tablet PO (09:40)
[2024-06-26] MEDS: atorvastatin 40 mg Tablet 20 MG PO (09:40)
--- NOTE | 2024-06-26 09:53 | P.PN_ITS ---
Subjective Subjective: Patient had the single-chamber permanent pacemaker insertion yesterday. She is doing okay. Chest x-ray shows proper positioning of the lead. Had the pacemaker interrogation today and was found to be functioning okay. Medications: Medication Review Details: Current Medications Hydrocodone Bitart/Acetaminophen (Hydrocodone-Acetaminophen 5-325 Mg Tablet) 1 tab PO Q4H PRN PRN Reason: MODERATE PAIN Last Admin: 06/25/24 21:45 Dose: 1 tab Amiodarone HCl (Amiodarone 200 Mg Tablet) 200 mg PO BID [facility] Last Admin: 06/26/24 09:40 Dose: 200 mg Atorvastatin Calcium (Atorvastatin 40 Mg Tablet) 20 mg PO DAILY [facility] Last Admin: 06/26/24 09:40 Dose: 20 mg Ergocalciferol (Ergocalciferol (Vitamin D2) 50,000 Unit Capsule) 50,000 unit PO Q7D [facility] Last Admin: 06/25/24 16:01 Dose: 50,000 unit Fenofibrate (Fenofibrate 145 Mg Tablet) 145 mg PO DAILY [facility] Last Admin: 06/26/24 09:40 Dose: 145 mg Sodium Chloride (Sodium Chloride 0.9%) 1,000 mls @ 75 mls/hr IV .[id number] [facility] Last Infusion: 06/26/24 09:36 Dose: Infused Ipratropium [place] (Ipratropium 0.5 Mg/2.5 Ml Neb) 0.5 mg INHALATION QID.RESPIRATORY [facility] Last Admin: 06/26/24 08:44 Dose: 0.5 mg Levalbuterol HCl (Levalbuterol 1.25 Mg/3 Ml Neb) 1.25 mg INHALATION Q4H PRN PRN Reason: Shortness Of Breath Losartan Potassium (Losartan 50 Mg Tablet) 50 mg PO DAILY [facility] Last Admin: 06/26/24 09:40 Dose: 50 mg Non-Formulary Medication (Conjugated Estrogens [Premarin]) 0.625 mg PO DAILY [facility] Ondansetron HCl (Ondansetron 2 Mg/Ml Sdv 2 Ml) 4 mg IVP Q4H PRN PRN Reason: NAUSEA AND VOMITING Last Admin: 06/26/24 06:05 Dose: 4 mg Tramadol HCl (Tramadol 50 Mg Tablet) 25 - 50 mg PO DAILY PRN PRN Reason: Pain Last Admin: 09/04/24 14:12 Dose: 50 mg Vitals/I&O/Wt Last Vital Signs Temp 98.0 F 06/26/24 08:00 Pulse 76 06/26/24 08:00 Resp 18 06/26/24 08:00 BP 151/65 06/26/24 08:00 Pulse Ox 95 06/26/24 08:00 O2 Del Method Room Air 06/26/24 08:00 06/25/24 06/26/24 06/26/24 22:59 06:59 14:59 Intake Total 480 / 720 1240 / 1240 Balance 480 / 720 1240 / 1240 Weight last 48 hrs Weight 124 lb 8 oz Weight 128 lb Weight 121 lb Physical Exam Narrative: GENERAL: The patient is alert and oriented times three. Not in any acute distress. HEENT: No significant pallor, icterus or lymphadenopathy.Oral cavity: There are no mucous membrane lesions. NECK: Trachea appears to be central. No masses noted. No JVD or thyromegaly appreciated. RESPIRATORY: Chest is symmetrical. No intercostals muscle retraction or any accessory muscle activation. There is no chest wall tenderness. Breath sounds are heard bilaterally. No rales or rhonchi heard. No evidence of any consolidation. The pacemaker insertion site has no hematoma bleeding. BREASTS: Deferred. HEART: The heart sounds are normal. No S3 or S4. No significant murmurs. No pericardial rub ABDOMEN: No vessel pulsations or distention. No tenderness. No organomegaly appreciated. Bowel sounds are normally heard. : Deferred. RECTAL: Deferred. LYMPHATIC: No lymphadenopathy noted in the neck. EXTREMITIES: No edema or cyanosis. No clubbing. MUSCULOSKELETAL: No acute joint deformities or swelling SKIN: There are no significant rashes or ecchymosis NEUROPSYCHIATRIC: The patient is alert and oriented x3. Appears to be in a good mood. No tremors or rigidity noted. A&P Assessment and plan (1) Presence of permanent cardiac pacemaker: Status post permanent pacer implantation yesterday. Pacemaker has good sensing and pacing function. Pacemaker site has no hematoma or bleeding (2) Intermittent atrial fibrillation: Patient currently is in sinus rhythm. Currently on amiodarone. The dose may be cut back to 200 mg p.o. daily. Continue the other medications as it is. (3) Sick sinus syndrome: Continue on the current management. (4) Hyperlipidemia: Continue on the current medication. Qualifiers: Hyperlipidemia type: mixed hyperlipidemia Qualified Code(s): E78.2 - Mixed hyperlipidemia (5) Hypertension: Currently normotensive. May continue on the current medication. Qualifiers: Hypertension type: primary hypertension Qualified Code(s): I10 - Essential (primary) hypertension Plan Appointment the [facility] in 1 week to be seen by nurse practitioner for a wound check and pacemaker check. Patient has appointment to see Dr. Ngo on the . Advised to keep this appointment. Please follow the post pacemaker instructions Attestations Medical Necessity Statement*: Discharge home today Coding Level of Care Code 56623 Diagnoses Presence of permanent cardiac pacemaker Z95.0 Intermittent atrial fibrillation I48.0 Sick sinus syndrome I49.5 Mixed hyperlipidemia E78.2 Hyperlipidemia type: mixed hyperlipidemia Primary hypertension I10 Hypertension type: primary hypertension
--- NOTE | 2024-06-26 11:26 | PC.NURSE ---
discharge med request pt stated she had tramadol at home prn but is not helping with the pain. she requested if she can have a different pain med to help with pain post pacemaker. Dr. Kenyon notified and informed about the patient concern via telephone. He said he will write some Rx.
--- NOTE | 2024-06-26 11:29 | PC.NURSE ---
hand off report provided to JASON Al To assume pt care at this time.
[2024-06-26 11:57] VITALS: BP 119/57; PULSE 62; RESP 20; TEMP 36.7; O2SAT 97
== END 2024-06-26 12:40 | disposition home or self-care (01) ==
LOC: CCL 05:55 → MEDSURG 06-26 07:56
PROVIDERS: PCP Registered Nurse; Visit Provider Internal Medicine Cardiovascular Disease
DX: I48.0 Paroxysmal atrial fibrillation (principal); I49.5 Sick sinus syndrome; E78.2 Mixed hyperlipidemia; I10 Essential (primary) hypertension; I48.91 Unspecified atrial fibrillation
CPT/HCPCS: 33207; 36415; 71045; 93005; 94640; 96374; 97165; 99152; 99153; A4216; C1769; C1779; C1786; C1894; J0690; J2250; J2405; J3010; J3370; J7030; J7050; J7644; Q9967

== ENCOUNTER → 2024-07-02 09:10 | Outpatient (BNVA) | payer MEDICARE, OTHER, SELFPAY | PROVIDERS: PCP Registered Nurse; Visit Provider Internal Medicine | DX: Z45.010 Encounter for checking and testing of cardiac pacemaker pulse generator [battery] (principal) | CPT/HCPCS: 93296 ==

== ENCOUNTER → 2024-07-02 14:55 | Outpatient (BNVA) | payer MEDICARE, OTHER, SELFPAY | PROVIDERS: PCP Registered Nurse; Visit Provider Nurse Practitioner Family | DX: Z95.0 Presence of cardiac pacemaker (principal) | CPT/HCPCS: 99214 ==

== ENCOUNTER → 2024-07-21 10:04 | Outpatient (BNVA) | payer MEDICARE, OTHER, SELFPAY | PROVIDERS: PCP Registered Nurse; Visit Provider Internal Medicine | DX: I48.0 Paroxysmal atrial fibrillation (principal); Z87.891 Personal history of nicotine dependence | CPT/HCPCS: 99214 ==

== ENCOUNTER 2024-09-04 09:28 | Outpatient (CLI) | payer MEDICARE, OTHER, SELFPAY ==
--- NOTE | 2024-09-04 09:45 | XRR_ITS ---
PROCEDURE INFORMATION: Exam: XR Left Shoulder Exam date and time: 09/04/2024 9:51 AM Age: 73 years old Clinical indication: Patient HX: Left rotator cuff injury, left shoulder pain and limited rom x 2 wks, reached up to take clothes off line and heard a pop; Additional info: Right rotator cuff injury TECHNIQUE: Imaging protocol: Radiologic exam of the left shoulder. Views: 2 or more views. COMPARISON: CR XR chest 1V portable [id number] 06/26/2024 7:32 AM FINDINGS: Bones/joints: Single lead pacemaker/defibrillator. Slight acromioclavicular and glenohumeral spurring. No fracture or dislocation.. Soft tissues: Normal. XR/XR shoulder LT min 2V* [id number] IMPRESSION: No acute findings.
== END 2024-09-04 09:29 | disposition home or self-care (01) ==
PROVIDERS: PCP Registered Nurse; Visit Provider Registered Nurse
DX: S46.002A Unspecified injury of muscle(s) and tendon(s) of the rotator cuff of left shoulder, initial encounter (principal); X50.1XXA Overexertion from prolonged static or awkward postures, initial encounter
CPT/HCPCS: 73030

== ENCOUNTER → 2024-09-12 10:15 | Outpatient (BNVA) | payer MEDICARE, OTHER, SELFPAY | PROVIDERS: PCP Registered Nurse; Visit Provider Nurse Practitioner | DX: M19.012 Primary osteoarthritis, left shoulder; R29.898 Other symptoms and signs involving the musculoskeletal system; S46.912A Strain of unspecified muscle, fascia and tendon at shoulder and upper arm level, left arm, initial encounter; X50.9XXA Other and unspecified overexertion or strenuous movements or postures, initial encounter | CPT/HCPCS: 20610; 73030; 99204; J1100; J2795; J3301 ==

== ENCOUNTER 2024-09-23 13:05 | Outpatient (CLI) | payer MEDICARE, OTHER, SELFPAY ==
--- NOTE | 2024-09-23 13:30 | MM_ITS ---
WS: [id number] BILATERAL 3D TOMOSYNTHESIS DIGITAL SCREENING MAMMOGRAPHY WITH CAD CLINICAL INFORMATION: Z12.31 - Encounter for screening mammogram for malignant ... HISTORY: Screening mammogram. No current complaints. COMPARISON: 2022 TECHNIQUE: Bilateral CC and MLO views. FINDINGS: Scattered fibroglandular densities bilaterally. No suspicious focal mass, asymmetry, calcifications, or architectural distortion. No evidence of malignancy. Incidental punctate and lucent centered calci fications. Vascular calcifications. Lobulated soft tissue nodule posterior inner RIGHT breast is unch anged measuring 1.7 cm with long-term stability MM/MM [facility] tomosynthesis [id number] IMPRESSION: DENSITY: There are scattered areas of fibroglandular density. BI-RADS: 2 - Benign. FOLLOW UP: 1 Year Follow-up Recommend return to annual screening mammography.
== END 2024-09-23 13:06 | disposition home or self-care (01) ==
LOC: RAD 13:05
PROVIDERS: PCP Registered Nurse; Visit Provider Registered Nurse
DX: Z12.31 Encounter for screening mammogram for malignant neoplasm of breast (principal); R92.323 Mammographic fibroglandular density, bilateral breasts; R92.1 Mammographic calcification found on diagnostic imaging of breast; N63.41 Unspecified lump in right breast, subareolar
CPT/HCPCS: 77063; 77067

== ENCOUNTER → 2024-10-03 10:29 | Outpatient (BNVA) | payer MEDICARE, OTHER, SELFPAY | PROVIDERS: PCP Registered Nurse; Visit Provider Nurse Practitioner | DX: M19.012 Primary osteoarthritis, left shoulder (principal); R29.898 Other symptoms and signs involving the musculoskeletal system; S46.912A Strain of unspecified muscle, fascia and tendon at shoulder and upper arm level, left arm, initial encounter; X58.XXXA Exposure to other specified factors, initial encounter | CPT/HCPCS: 99213 ==

== ENCOUNTER → 2024-12-02 10:07 | Outpatient (BNVA) | payer MEDICARE, OTHER, SELFPAY | PROVIDERS: PCP Registered Nurse; Visit Provider Surgery | DX: K46.9 Unspecified abdominal hernia without obstruction or gangrene (principal); R59.1 Generalized enlarged lymph nodes | CPT/HCPCS: 99204 ==

== ENCOUNTER → 2024-12-05 10:03 | Outpatient (BNVA) | payer MEDICARE, OTHER, SELFPAY | PROVIDERS: PCP Registered Nurse; Visit Provider Nurse Practitioner | DX: M19.012 Primary osteoarthritis, left shoulder (principal); R29.898 Other symptoms and signs involving the musculoskeletal system; R20.2 Paresthesia of skin; S46.912A Strain of unspecified muscle, fascia and tendon at shoulder and upper arm level, left arm, initial encounter; X58.XXXD Exposure to other specified factors, subsequent encounter | CPT/HCPCS: 99214 ==

== ENCOUNTER 2024-12-22 09:54 | Outpatient (CLI) | payer MEDICARE, OTHER, SELFPAY ==
--- NOTE | 2024-12-22 09:58 | US_ITS ---
WS: [id number] INDICATION: Groin lump TECHNIQUE: Ultrasound soft tissue RIGHT groin FINDINGS: Ultrasound soft tissue RIGHT groin. No hernia. RIGHT groin lymph nodes with persistent fatty hilum. No significant cortical thickening. Largest lymph nodes measure 1.5 x 1.8 x 0.4 cm. These are nonspecific but likely reactive. US/US soft tissue/extremity [id number] IMPRESSION: 1. A few prominent but normal-appearing lymph nodes RIGHT groin nonspecific b ut likely reactive. 2. No hernia.
== END 2024-12-22 09:55 | disposition home or self-care (01) ==
PROVIDERS: PCP Registered Nurse; Visit Provider Surgery
DX: R59.1 Generalized enlarged lymph nodes (principal)
CPT/HCPCS: 76882

== ENCOUNTER → 2024-12-23 12:28 | Outpatient (BNVA) | payer MEDICARE, OTHER, SELFPAY | PROVIDERS: PCP Registered Nurse; Visit Provider Surgery | DX: Z09 Encounter for follow-up examination after completed treatment for conditions other than malignant neoplasm (principal) | CPT/HCPCS: 99213 ==

== ENCOUNTER 2025-01-12 06:00 | Outpatient (CLI) | payer MEDICARE, OTHER, SELFPAY | END 2025-01-12 23:59 | disposition home or self-care (01) | LOC: SPT 01-14 10:53 | PROVIDERS: Visit Provider Nurse Practitioner | DX: Z46.89 Encounter for fitting and adjustment of other specified devices (principal); M25.561 Pain in right knee | CPT/HCPCS: 20610; 99214; J1100; J2795; J3301; J9999; L1852 ==

== ENCOUNTER → 2025-01-12 10:13 | Outpatient (BNVA) | payer MEDICARE, OTHER, SELFPAY | PROVIDERS: PCP Registered Nurse; Visit Provider Nurse Practitioner | DX: M17.11 Unilateral primary osteoarthritis, right knee (principal); Z46.89 Encounter for fitting and adjustment of other specified devices | CPT/HCPCS: 73560; 73565 ==

== ENCOUNTER → 2025-01-13 10:39 | Outpatient (BNVA) | payer MEDICARE, OTHER, SELFPAY | PROVIDERS: Visit Provider Nurse Practitioner Family | DX: I35.1 Nonrheumatic aortic (valve) insufficiency (principal); I48.91 Unspecified atrial fibrillation; I10 Essential (primary) hypertension; Z79.01 Long term (current) use of anticoagulants; Z95.0 Presence of cardiac pacemaker | CPT/HCPCS: 99213 ==

== ENCOUNTER 2025-01-16 11:35 | Emergency (ER) | payer MEDICARE, OTHER, SELFPAY ==
[2025-01-16 12:07] VITALS: BP 98/60; PULSE 82; RESP 16; TEMP 36.5; O2SAT 96; BMI 22.6
--- NOTE | 2025-01-16 12:11 | XR_ITS ---
WS: [id number] Exam: XR knee RT 3V* [id number] Date/Time of Exam: 01/16/2025 12:49 PM Reason For Exam: Pain Comparison 01/12/2025. There is moderate degenerative thinning of the medial joint compartment. No fracture identified. Minimal effusion in the suprapatellar bursa. Normal soft tissues. XR/XR knee RT 3V* [id number] IMPRESSION: 1. Moderate degenerative narrowing of the medial compartment. Small joint effus ion.
--- NOTE | 2025-01-16 12:48 | W.ED.EXTPRO ---
HPI - Extremity Problem General: Chief complaint: Extremity Injury, Lower Stated complaint: right knee pain Time Seen by Provider: 01/16/25 12:14 Source: patient and family Mode of arrival: wheelchair Limitations: no limitations History of Present Illness: Patient is a 74-year-old female presents to ED today along with her significant other for evaluation of right knee pain. Patient states she has a longstanding history of pain in the right knee. It acutely worsened 1 to 2 months ago after her dog ran into the lateral aspect of the knee. She describes her pain as stabbing. She recently saw [facility] orthopedics who discussed conservative versus surgical options as she did have significant osteoarthritis. Patient states she opted for conservative treatment and was fitted for a brace, was instructed to start home physical therapy, and received an intra-articular injection. She does not feel like the injection was beneficial. She states this morning when she got out of bed she immediately noticed worsening pain to the right knee. She has not noticed any worsening swelling, redness, warmth. MD Complaint: joint pain Onset (ago): year(s) Pain Consistency: constant Location: right and knee Radiation: none Relieving factors: immobilization Exacerbating factors: range of motion, weight bearing and walking Associated symptoms: Reports no associated symptoms Related Data Home Medications ?Medication ?Instructions ?Recorded ?Confirmed apixaban 5 mg tablet (Eliquis) 5 mg PO BID 06/06/24 01/13/25 fenofibrate nanocrystallized 145 145 mg PO DAILY 06/06/24 01/13/25 mg tablet levalbuterol HCl 1.25 mg/0.5 mL 1.25 mg inhalation Q4H PRN 06/06/24 01/13/25 solution for nebulization Shortness Of Breath latanoprost 0.005 % eye drops drp ophthalmic (eye) 07/24/24 01/13/25 Previous Rx's ?Medication ?Instructions ?Recorded valsartan 160 mg tablet 160 mg PO DAILY #90 tabs 06/16/24 pravastatin 40 mg tablet See Rx Instructions .Route 07/07/24 .COMPLEX #90 tabs metoprolol succinate 25 mg 25 mg PO DAILY #90 tabs 07/21/24 tablet,extended release 24 hr tiotropium bromide 2.5 2 puff inhalation DAILY 30 days #4 07/24/24 mcg/actuation mist for inhalation grams (Spiriva Respimat) ergocalciferol (vitamin D2) 1,250 See Rx Instructions .Route 08/15/24 mcg (50,000 unit) capsule (Vitamin .COMPLEX #12 caps D2) conjugated estrogens 0.625 mg 0.625 mg PO DAILY 90 days #90 tabs 09/04/24 tablet (Premarin) diclofenac sodium 1 % topical gel 4 g topical QID #100 grams 09/12/24 tramadol 50 mg tablet 50 mg PO BID PRN pain #20 tabs 09/12/24 albuterol sulfate 90 mcg/actuation See Rx Instructions .Route 10/13/24 breath activated powder inhaler .COMPLEX #2 ea (ProAir RespiClick) right medial viscera washer brace #1 ea 01/12/25 hydrocodone 5 mg-acetaminophen 325 1 tab PO Q6H PRN pain #20 tabs 01/16/25 mg tablet Allergies Allergy/AdvReac Type Severity Reaction Status Date / Time No Known Allergies Allergy Verified 01/16/25 12:16 Review of Systems Musc: Reports: joint pain (R knee) and joint swelling (R knee); Denies: extremity pain, extremity swelling, joint redness, joint warmth or muscle cramps Neuro: Reports: difficulty walking (due to R knee pain); Denies: numbness in extremities or sensory changes PFSH ED PFSH: Medical History Primary osteoarthritis of right knee Positive Tinel's sign Hypertension Hyperlipidemia Atrial fibrillation with rapid ventricular response Constipation NSTEMI (non-ST elevated myocardial infarction) Metabolic encephalopathy Bradycardia Cerebrovascular event Acute metabolic encephalopathy Altered mental status Atrial fibrillation Essential hypertension Anticoagulation adequate with anticoagulant therapy Chronic lumbar pain Asthma On hormone replacement therapy Surgical History History of tonsillectomy History of hysterectomy History of tubal ligation 1974 Family History Brother Heart disease Mother Cancer Father Cancer Social History Smoking and tobacco/nicotine status: former use of tobacco/nicotine Alcohol intake: current Alcohol intake frequency: holidays/special occasions only Alcohol type: beer Substance/Drug Use: never Adopted: No Caregiver/support person: No Lives independently: No Household members: spouse Marital status: service: No Current occupational status: retired Physical Exam Const: COMMON NORMALS: no acute distress, average body habitus, no limitations, healthy appearing, alert and well nourished GENERAL APPEARANCE: cooperative Resp: COMMON NORMALS: normal respiratory effort and clear to auscultation bilaterally AUSCULTATION: clear to auscultation bilaterally Cardio: COMMON NORMALS: regular rate and regular rhythm RATE: regular rate RHYTHM: regular rhythm Extremity: COMMON NORMALS: capillary refill normal, no calf tenderness and no pedal edema GENERAL: Yes normal exam except as noted RIGHT LOWER EXTREMITY: Yes knee joint Right knee: Yes inspection (mild effusion), Yes palpation (crepitus with ROM), Yes ROM (full ROM limited due to pain but does have normal micro-movements ), Yes neurovascular exam (normal) and Yes other (no erythema/warmth present; no concern for septic arthritis ) and Yes lower leg (normal exam distal to knee) Neuro: COMMON NORMALS: moves all extremities, no focal motor deficits and no sensory deficits noted SENSORIUM/ORIENTATION: Yes alert Skin: COMMON NORMALS: no rashes or lesions noted GENERAL SKIN EXAM: no rashes or lesions noted Course Vital Signs: Vital signs: Vital Signs Temperature 97.7 F 01/16/25 12:07 Pulse Rate 86 01/16/25 13:12 Respiratory Rate 18 01/16/25 13:28 Blood Pressure 124/81 01/16/25 13:12 Pulse Oximetry 95 01/16/25 13:12 Oxygen Delivery Me thod Room Air 01/16/25 13:12 MDM - Extremity (Nontraumatic) Medical Decision Making Patient feels better after medications given here. She is ambulatory with the help of a walker. Will send her home with a walker and have her repeat follow-up with orthopedics as she would like to discuss further options at this point. Medical Records I reviewed the patient's medical records. Lab Data Radiology Impressions Knee X-Ray 01/16/25 12:11 IMPRESSION: 1. Moderate degenerative narrowing of the medial compartment. Small joint effusion. All radiology interpretation(s) finalized by discharge Discharge Plan Discharge Patient Disposition: Home Clinical Impression: Primary osteoarthritis of right knee Condition: Stable Prescriptions: New hydrocodone-acetaminophen 5-325 mg tablet 1 tab PO Q6H PRN (Reason: pain) Qty: 20 0RF No Action metoprolol succinate 25 mg tablet extended release 24 hr 25 mg PO DAILY Qty: 90 3RF valsartan 160 mg tablet 160 mg PO DAILY Qty: 90 3RF latanoprost 0.005 % drops ophthalmic (eye) Spiriva Respimat 2.5 mcg/actuation mist 2 puff inhalation DAILY 30 Days Qty: 4 2RF Premarin 0.625 mg tablet 0.625 mg PO DAILY 90 Days Qty: 90 1RF tramadol 50 mg tablet 50 mg PO BID PRN (Reason: pain) Qty: 20 0RF diclofenac sodium 1 % gel 4 g topical QID Qty: 100 0RF Rx Instructions: apply to single knee, ankle, foot; for foot includes sole/toes/top of foot (DME) right medial viscera washer brace See Rx Instructions .Route .MEDSUPPLY Qty: 1 0RF Rx Instructions: As directed pravastatin 40 mg tablet See Rx Instructions .ROUTE .COMPLEX Qty: 90 3RF Dose Instruction: TAKE 1 TABLET DAILY Rx Instructions: TAKE 1 TABLET DAILY ergocalciferol (vitamin D2) [Vitamin D2] 1,250 mcg (50,000 unit) capsule See Rx Instructions .ROUTE .COMPLEX Qty: 12 3RF Dose Instruction: TAKE 1 CAPSULE WEEKLY Rx Instructions: TAKE 1 CAPSULE WEEKLY ProAir RespiClick 90 mcg/actuation aerosol powdr breath activated See Rx Instructions .ROUTE .COMPLEX Qty: 2 3RF Dose Instruction: USE 1 INHALATION EVERY 6 HOURS NEEDED FOR SHORTNESS OF BREATH OR WHEEZING Rx Instructions: USE 1 INHALATION EVERY 6 HOURS NEEDED FOR SHORTNESS OF BREATH OR WHEEZING levalbuterol HCl 1.25 mg/0.5 mL solution for nebulization 1.25 mg inhalation Q4H PRN (Reason: Shortness Of Breath) Rx Instructions: pt needs xopenex due to afib fenofibrate nanocrystallized 145 mg tablet 145 mg PO DAILY Eliquis 5 mg tablet 5 mg PO BID Discharge Orders: Discharge ED (Routine); Ordered 01/16/25 Ordered By: Em Julio Other Ambulatory Orders: DME: Walker (Order) Location: None Selected Ordered By: Em Julio Patient Instructions: Opioid Safety, Pain Management Activity Restrictions/Additional Instructions: As we discussed, continue using your brace and your walker to help with ambulation. I will have case management set you up with a repeat evaluation with orthopedics for further discussion on treatment options. You may return to the emergency department for worsening pain, redness, warmth to the joint, fevers, generally feeling worse or unwell, or any other concerns you may have. You did have tramadol listed on your medication list here. Do not take this medication with the hydrocodone I prescribed you today. Please pick one or the other to help with your discomfort. Print Language: Macedonian Coding Level of Care Code ED Vocational Aide for Chris Webster
[2025-01-16 13:12] VITALS: BP 124/81; PULSE 86; O2SAT 95
[2025-01-16] MEDS: ketorolac 30 mg/mL INJ 15 MG IM (13:27)
[2025-01-16 13:28] VITALS: RESP 18
[2025-01-16] MEDS: morphine 4 mg/mL SDV 1 mL IM (13:28)
[2025-01-16] MEDS: dexamethasone 10 mg/mL INJ 6 MG IM (13:29)
--- NOTE | 2025-01-16 13:37 | DCPLANNER ---
messaged ortho for er f/u
[2025-01-16 14:48] VITALS: BP 150/53; PULSE 64; O2SAT 96
--- NOTE | 2025-01-16 17:15 | W.ED.EXTPRO ---
HPI - Extremity Problem General: Chief complaint: Extremity Injury, Lower Stated complaint: right knee pain Time Seen by Provider: 01/16/25 12:14 Source: patient and family Mode of arrival: wheelchair Limitations: no limitations History of Present Illness: Pain Consistency: constant Location: right and knee Relieving factors: immobilization Exacerbating factors: range of motion, weight bearing and walking Related Data Home Medications ?Medication ?Instructions ?Recorded ?Confirmed apixaban 5 mg tablet (Eliquis) 5 mg PO BID 06/06/24 01/13/25 fenofibrate nanocrystallized 145 145 mg PO DAILY 06/06/24 01/13/25 mg tablet levalbuterol HCl 1.25 mg/0.5 mL 1.25 mg inhalation Q4H PRN 06/06/24 01/13/25 solution for nebulization Shortness Of Breath latanoprost 0.005 % eye drops drp ophthalmic (eye) 07/24/24 01/13/25 Previous Rx's ?Medication ?Instructions ?Recorded valsartan 160 mg tablet 160 mg PO DAILY #90 tabs 06/16/24 pravastatin 40 mg tablet See Rx Instructions .Route 07/07/24 .COMPLEX #90 tabs metoprolol succinate 25 mg 25 mg PO DAILY #90 tabs 07/21/24 tablet,extended release 24 hr tiotropium bromide 2.5 2 puff inhalation DAILY 30 days #4 07/24/24 mcg/actuation mist for inhalation grams (Spiriva Respimat) ergocalciferol (vitamin D2) 1,250 See Rx Instructions .Route 08/15/24 mcg (50,000 unit) capsule (Vitamin .COMPLEX #12 caps D2) conjugated estrogens 0.625 mg 0.625 mg PO DAILY 90 days #90 tabs 09/04/24 tablet (Premarin) diclofenac sodium 1 % topical gel 4 g topical QID #100 grams 09/12/24 tramadol 50 mg tablet 50 mg PO BID PRN pain #20 tabs 09/12/24 albuterol sulfate 90 mcg/actuation See Rx Instructions .Route 10/13/24 breath activated powder inhaler .COMPLEX #2 ea (ProAir RespiClick) 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 #1 ea 01/12/25 hydrocodone 5 mg-acetaminophen 325 1 tab PO .q 4-6 PRN pain #20 tabs 01/16/25 mg tablet Allergies Allergy/AdvReac Type Severity Reaction Status Date / Time No Known Allergies Allergy Verified 01/16/25 12:16 PFSH ED PFSH: Medical History Primary osteoarthritis of right knee Positive Tinel's sign Hypertension Hyperlipidemia Atrial fibrillation with rapid ventricular response Constipation NSTEMI (non-ST elevated myocardial infarction) Metabolic encephalopathy Bradycardia Cerebrovascular event Acute metabolic encephalopathy Altered mental status Atrial fibrillation Essential hypertension Anticoagulation adequate with anticoagulant therapy Chronic lumbar pain Asthma On hormone replacement therapy Surgical History History of tonsillectomy History of hysterectomy History of tubal ligation 1974 Family History Brother Heart disease Mother Cancer Father Cancer Social History Smoking and tobacco/nicotine status: former use of tobacco/nicotine Alcohol intake: current Alcohol intake frequency: holidays/special occasions only Alcohol type: beer Substance/Drug Use: never Adopted: No Caregiver/support person: No Lives independently: No Household members: spouse Marital status: service: No Current occupational status: retired Course Vital Signs: Vital signs: Vital Signs Temperature 97.7 F 01/16/25 12:07 Pulse Rate 64 01/16/25 14:48 Respiratory Rate 18 01/16/25 13:28 Blood Pressure 150/53 01/16/25 14:48 Pulse Oximetry 96 01/16/25 14:48 Oxygen Delivery Me thod Room Air 01/16/25 13:12 MDM - Extremity (Nontraumatic) Lab Data Radiology Impressions Knee X-Ray 01/16/25 12:11 IMPRESSION: 1. Moderate degenerative narrowing of the medial compartment. Small joint effusion. Discharge Plan Discharge Patient Disposition: Home Clinical Impression: Primary osteoarthritis of right knee Condition: Stable Prescriptions: New hydrocodone-acetaminophen 5-325 mg tablet 1 tab PO .q 4-6 PRN (Reason: pain) Qty: 20 0RF No Action metoprolol succinate 25 mg tablet extended release 24 hr 25 mg PO DAILY Qty: 90 3RF valsartan 160 mg tablet 160 mg PO DAILY Qty: 90 3RF latanoprost 0.005 % drops ophthalmic (eye) Spiriva Respimat 2.5 mcg/actuation mist 2 puff inhalation DAILY 30 Days Qty: 4 2RF Premarin 0.625 mg tablet 0.625 mg PO DAILY 90 Days Qty: 90 1RF tramadol 50 mg tablet 50 mg PO BID PRN (Reason: pain) Qty: 20 0RF diclofenac sodium 1 % gel 4 g topical QID Qty: 100 0RF Rx Instructions: apply to single knee, ankle, foot; for foot includes sole/toes/top of foot (DME) 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 See Rx Instructions .Route .MEDSUPPLY Qty: 1 0RF Rx Instructions: As directed pravastatin 40 mg tablet See Rx Instructions .ROUTE .COMPLEX Qty: 90 3RF Dose Instruction: TAKE 1 TABLET DAILY Rx Instructions: TAKE 1 TABLET DAILY ergocalciferol (vitamin D2) [Vitamin D2] 1,250 mcg (50,000 unit) capsule See Rx Instructions .ROUTE .COMPLEX Qty: 12 3RF Dose Instruction: TAKE 1 CAPSULE WEEKLY Rx Instructions: TAKE 1 CAPSULE WEEKLY ProAir RespiClick 90 mcg/actuation aerosol powdr breath activated See Rx Instructions .ROUTE .COMPLEX Qty: 2 3RF Dose Instruction: USE 1 INHALATION EVERY 6 HOURS NEEDED FOR SHORTNESS OF BREATH OR WHEEZING Rx Instructions: USE 1 INHALATION EVERY 6 HOURS NEEDED FOR SHORTNESS OF BREATH OR WHEEZING levalbuterol HCl 1.25 mg/0.5 mL solution for nebulization 1.25 mg inhalation Q4H PRN (Reason: Shortness Of Breath) Rx Instructions: pt needs xopenex due to afib fenofibrate nanocrystallized 145 mg tablet 145 mg PO DAILY Eliquis 5 mg tablet 5 mg PO BID Discharge Orders: Discharge ED (Routine); Ordered 01/16/25 Ordered By: Em Julio Other Ambulatory Orders: DME: Walker (Order) Location: None Selected Ordered By: Em Julio Patient Instructions: Opioid Safety, Pain Management Activity Restrictions/Additional Instructions: As we discussed, continue using your brace and your walker to help with ambulation. I will have case management set you up with a repeat evaluation with orthopedics for further discussion on treatment options. You may return to the emergency department for worsening pain, redness, warmth to the joint, fevers, generally feeling worse or unwell, or any other concerns you may have. You did have tramadol listed on your medication list here. Do not take this medication with the hydrocodone I prescribed you today. Please pick one or the other to help with your discomfort. Print Language: Cymro Coding Level of Care Code ED Electronic Warfare Operator for Chris Webster
== END 2025-01-16 14:49 | disposition home or self-care (01) ==
PROVIDERS: Emergency Provider Physician Assistant
DX: M17.11 Unilateral primary osteoarthritis, right knee (principal); Z79.01 Long term (current) use of anticoagulants; Z87.891 Personal history of nicotine dependence; E78.5 Hyperlipidemia, unspecified; I10 Essential (primary) hypertension
CPT/HCPCS: 73562; 96372; 99284; J1100; J1885; J2270

== ENCOUNTER → 2025-01-30 12:33 | Outpatient (BNVA) | payer MEDICARE, OTHER, SELFPAY | PROVIDERS: PCP Registered Nurse; Visit Provider Nurse Practitioner | DX: M17.11 Unilateral primary osteoarthritis, right knee (principal) | CPT/HCPCS: 73560; 73565; 99214 ==

== ENCOUNTER 2025-02-10 10:07 | Outpatient (CLI) | payer MEDICARE, OTHER, SELFPAY ==
--- NOTE | 2025-02-10 10:15 | CT_ITS ---
WS: [id number] CT RIGHT KNEE, NONCONTRAST [facility] TECHNIQUE: Noncontrast CT of the RIGHT knee to include the RIGHT hip and ankle. CLINICAL INFORMATION: DJD KNEE DLP: 930.[address] scans at [facility] use at least one of these dose optimization techniques: automated exposure control; mA and/or kV adjustment per patient size (includes targeted exams where dose is matched to clinical indication); or iterative reconstruction. FINDINGS: Degenerative arthritis sacroiliac joints. Advanced tricompartmental arthritis RIGHT knee worse in the medial joint compartment. Hypertrophic patella. Small suprapatellar effusion. Lobulated popliteal cyst measuring 3.[address]/CT knee RT LISA [id number] IMPRESSION: Images obtained for preoperative purposes.
== END 2025-02-10 10:08 | disposition home or self-care (01) ==
PROVIDERS: PCP Registered Nurse; Visit Provider Nurse Practitioner
DX: M17.11 Unilateral primary osteoarthritis, right knee (principal); M46.1 Sacroiliitis, not elsewhere classified; M89.38 Hypertrophy of bone, other site; M25.461 Effusion, right knee; M71.21 Synovial cyst of popliteal space [Baker], right knee
CPT/HCPCS: 73700

== ENCOUNTER → 2025-03-06 08:50 | Outpatient (BNVA) | payer MEDICARE, OTHER, SELFPAY | PROVIDERS: PCP Registered Nurse; Visit Provider Nurse Practitioner | DX: M19.012 Primary osteoarthritis, left shoulder (principal); R29.898 Other symptoms and signs involving the musculoskeletal system | CPT/HCPCS: 20610; J1100; J2795; J3301; J9999 ==

== ENCOUNTER 2025-03-10 09:56 | Outpatient (CLI) | payer MEDICARE, OTHER, SELFPAY ==
[2025-03-10 11:24] LABS: Basophils # 0.1 10^3/uL (0.0-0.1); Basophils % 0.5 %; Eosinophils # 0.2 10^3/uL (0.0-0.8); Eosinophils % 1.2 %; Hematocrit 39.4 % (36-47); Lymphocytes # 3.5 10^3/uL (0.8-4.8); Lymphocytes % 22.7 %; Mean Corpuscular HGB Conc 31.5 g/dL (30-55); Mean Corpuscular Hemoglobin 28.9 pg (27-33); Mean Corpuscular Volume 91.8 fl (85-98); Mean Platelet Volume 11.1 fL (7.4-10.4); Monocytes # 1.5 10^3/uL (0.2-0.9); Monocytes % 9.7 %; Neutrophils # 10.21 10^3/uL (1.8-7.7); Neutrophils % 65.4 %; Nucleated Red Blood Cells % 0 %; Platelet Count 467 10^3/cmm (157-399); Red Blood Count 4.29 10^6/uL (3.85-5.65); Red Cell Distribution Width 15.3 % (12.1-15.1)
[2025-03-10 11:25] LABS: Bilirubin Urine Negative (Negative); Blood Urine Negative (Negative); Glucose Urine UA Negative (Normal); Ketones Urine Negative (Negative); Leukocyte Esterase Urine 2+ (Negative); Nitrate Urine Positive (Negative); Protein Urine Negative (Negative); Specific Gravity, Urine 1.018 (1.005-1.030); Urine Appearance Clear (CLEAR); Urine Color Yellow (Yellow); Urobilinogen Urine 0.2 mg/dL (Negative)
[2025-03-10 11:30] LABS: Add Urine Microscopic? YES; Bacteria Urine 4+ /hpf; Hyaline Casts Urine 5.36 /lpf; RBC Urine 0-2 /hpf (0-2); Squamous Epithelial Cell Urine 0-5 /hpf (0-5); WBC Urine 21-50 /hpf (0-5)
[2025-03-10 11:37] LABS: Add Urine Culture? Yes
[2025-03-10 11:44] LABS: Alanine Aminotransferase 11 U/L (0-33); Albumin Level 4.1 g/dL (3.5-5.2); Alkaline Phosphatase 50 U/L (35-105); Anion Gap 18.4 (5-19); Aspartate Amino Transferase 13 U/L (0-32); Blood Urea Nitrogen 29 mg/dL (8-23); Calcium 9.6 mg/dL (8.5-10.5); Carbon Dioxide 22 mmol/L (22-29); Chloride 105 mmol/L (98-107); Globulin 3.6 g/dL (1.3-4.6); Glucose 75 mg/dL (65-115); Osmolality Calculated 295 mOsm/kg (285-295); Potassium 5.4 mmol/L (3.5-5.1); Sodium 140 mmol/L (136-145); Total Bilirubin 0.2 mg/dL (0.15-1.2); Total Protein 7.7 g/dL (6.6-8.7)
== END 2025-03-10 09:57 | disposition home or self-care (01) ==
LOC: LAB 09:58
PROVIDERS: PCP Registered Nurse; Visit Provider Nurse Practitioner
DX: Z01.818 Encounter for other preprocedural examination (principal)
CPT/HCPCS: 36415; 80053; 81001; 85025; 87077; 87086; 87186; 95911

== ENCOUNTER → 2025-03-17 08:20 | Outpatient (BNVA) | payer MEDICARE, OTHER, SELFPAY | PROVIDERS: PCP Registered Nurse; Visit Provider Family Medicine | DX: Z01.818 Encounter for other preprocedural examination (principal) | CPT/HCPCS: 80048; 81003; 85025; 93005 ==

== ENCOUNTER 2025-03-19 16:37 | Observation (INO) | payer MEDICARE, OTHER, SELFPAY ==
[2025-03-19] VITALS (22 sets, daily range): BP systolic 70–142; BP diastolic 41–65; PULSE 61–76; RESP 15–20; TEMP 36.1–36.9; O2SAT 92–99; BMI 21.9
[2025-03-19] MEDS: acetaminophen 1,000 MG/100 ML PIGGYBACK 400 MG IV ×2 (06:15→17:20)
[2025-03-19] MEDS: sodium chloride 0.9% 1,000 ML 30 ML IV (06:24)
[2025-03-19] MEDS: CELEcoxib 200 mg Capsule 400 MG PO (06:30)
[2025-03-19] MEDS: gabapentin 300 mg Capsule PO (06:30)
--- NOTE | 2025-03-19 06:37 | ANES.PREANE2 ---
Pre-Anesthetic Assessment Height/Weight: Height 1.6 m Weight 56.245 kg Temp Pulse Resp BP Pulse Ox O2 Del Method 97.7 F 73 18 131/53 96 Room Air 03/19/25 06:22 03/19/25 06:22 03/19/25 06:22 03/19/25 06:22 03/19/25 06:22 03/19/25 06:22 Operation Date: 03/19/25 07:00 Proposed Procedures p RIGHT Nabeel Robot Total Knee Arthroplasty(Right) - Sheila Bynum MD Familial anesthetic complications: None Was Beta Alirio taken within 24 hours: N/A Was Clonidine taken within 24 hours: N/A Last intake: Intake Last Liquid Date 03/18/25 Last Liquid Time 18:00 Last Solid Date 03/18/25 Last Solid Time 18:00 Social No alcohol and No tobacco Exam alert, oriented x 3, clear to auscultation bilaterally and regular rate & rhythm Airway Mallampati: Class I Dentition: chipped and other (missing) Pulmonary Asthma CV/HEM Atrial Fibrillation (hx w/ RVR), Arrythmia (Sick sinus syndrome with permanent pacemaker), Hypertension and Myocardial Infarction (Patient denies hx of heart attack) CARDIAC EVENT MONITOR 06/10/24 *The predominant rhythm was Sinus Rhythm. *The Maximum Heart Rate recorded was 145 BPM, 07:52 PM 06/12, the Minimum Heart Rate recorded was 33 BPM, 06:46 AM 06/22 and the Average Heart Rate was 71 BPM. The study included 38 Pauses. The Longest Pause was 5.1s, 08:06 PM 06/10. *There were 669 VE beats with a burden of <1 %. *There were 6,899 SVE beats with a burden of 1 %. *The study included an Atrial Fibrillation/Flutter Ennis of 5 %. The longest episode was 1h 50m 11s, 08:06 PM 06/10 and the fastest episode was 145 BPM, 07:52 PM 06/12. *There were 3 manually detected events.No symptoms were mentioned. ECHO 06/06/24 Normal left ventricular size, systolic function and wall thickness, with no regional wall motion abnormalities. Estimated ejection fraction 60%.Grade II/IV diastolic dysfunction, moderately elevated filling pressures. Structurally normal mitral valve without significant stenosis or prolapse. There is mild mitral regurgitation. Severe aortic valve calcification. Mild aortic valve stenosis, mean gradient 9.7 mmHg, ROSLYN 1.6 cm squared. Moderate aortic valve regurgitation. There is no pericardial effusion. Right atrial pressure is around 20 mm of mercury. CAROTID DOPPLER 12/28/23 Right ICA stenosis <50%. Moderate atheromatous plaque right carotid bulb/ICA. Left ICA stenosis <50%. Moderate atheromatous plaque left carotid bulb/ICA. Normal antegrade Doppler flow noted in the right vertebral artery. Normal antegrade Doppler flow noted in the left vertebral artery. SESTAMIBI STRESS TEST 04/06/23 1. Normal EKG response to Lexiscan infusion 2. No Lexiscan induced chest pain or cardiac arrhythmia. 3. Normal blood pressure and heart rate response. MYOCARDIAL PERFUSION SCAN 04/06/23 1. Normal myocardial perfusion imaging with no evidence of ischemia 2. LV systolic function is normal 3. TID ratio is elevated. Metabolic Hyperlipidemia Neuropsych Cerebrovascular Accident patient denies hx of stroke Anesthetic Plan ASA status: 4 Anesthesia: Regional (specify below) Risk of > 500 ml blood loss (7ml/kg in children): No Medications/Allergies Home Medications ?Medication ?Instructions ?Recorded ?Confirmed ?Last Taken ?Type apixaban 5 mg tablet (Eliquis) 5 mg PO BID 06/06/24 03/18/25 03/12/25 History fenofibrate nanocrystallized 145 145 mg PO BEDTIME 06/06/24 03/18/25 03/18/25 History mg tablet levalbuterol HCl 1.25 mg/0.5 mL 1.25 mg inhalation Q4H PRN 06/06/24 03/19/25 06/25/24 05:00 History solution for nebulization Shortness Of Breath valsartan 160 mg tablet 160 mg PO DAILY #90 tabs 06/16/24 03/18/25 03/19/25 Rx latanoprost 0.005 % eye drops 1 drp ophthalmic (eye) BEDTIME 07/24/24 03/18/25 03/17/25 History tiotropium bromide 2.5 2 puff inhalation DAILY 30 days #4 07/24/24 03/18/25 03/18/25 Rx mcg/actuation mist for inhalation grams (Spiriva Respimat) ergocalciferol (vitamin D2) 1,250 See Rx Instructions .Route 10/25/24 05/28/25 05/28/25 Rx mcg (50,000 unit) capsule (Vitamin .COMPLEX #12 caps D2) diclofenac sodium 1 % topical gel 4 g topical QID #100 grams 09/12/24 03/18/25 03/18/25 Rx tramadol 50 mg tablet 50 mg PO BID PRN pain #20 tabs 09/12/24 03/18/25 03/15/25 Rx right medial advertising executive brace #1 ea 01/12/25 03/10/25 Unknown Rx nitrofurantoin 100 mg PO BID 7 days #14 caps 03/12/25 03/18/25 03/18/25 Rx monohydrate/macrocrystals 100 mg capsule (Macrobid) albuterol sulfate 90 mcg/actuation 1 inh inhalation QID 03/18/25 03/19/25 03/18/25 History breath activated powder inhaler (ProAir RespiClick) conjugated estrogens 0.625 mg 0.625 mg PO BEDTIME 03/18/25 03/18/25 03/18/25 History tablet (Premarin) esomeprazole magnesium 20 mg 20 mg PO DAILY 03/18/25 03/18/25 03/18/25 History capsule,delayed release (Nexium) metoprolol succinate 25 mg 25 mg PO BEDTIME 03/18/25 03/18/25 03/18/25 History tablet,extended release 24 hr pravastatin 40 mg tablet 40 mg PO BEDTIME 03/18/25 03/18/25 03/17/25 History Allergies Allergy/AdvReac Type Severity Reaction Status Date / Time No Known Allergies Allergy Verified 03/19/25 06:12 Current Medications Generic Name Dose Route Start Last Admin Trade Name Freq PRN Reason Stop Dose Admin Sodium Chloride 1,000 mls @ 30 mls/hr 03/19/25 06:15 03/19/25 06:24 Sodium Chloride 0.9% IV 03/20/25 06:14 30 mls/hr .Q24H MARILIN Administration PFSH Anesthesia Medical History Primary osteoarthritis of right knee Positive Tinel's sign Hypertension Hyperlipidemia Atrial fibrillation with rapid ventricular response Constipation NSTEMI (non-ST elevated myocardial infarction) Metabolic encephalopathy Bradycardia Cerebrovascular event Acute metabolic encephalopathy Altered mental status Atrial fibrillation Essential hypertension Anticoagulation adequate with anticoagulant therapy Chronic lumbar pain Asthma On hormone replacement therapy Surgical History History of tonsillectomy History of hysterectomy History of tubal ligation 1974 Family History Brother Heart disease Mother Cancer Father Cancer Social History Smoking and tobacco/nicotine status: never used tobacco/nicotine Alcohol intake: current Alcohol intake frequency: holidays/special occasions only Alcohol type: beer Substance/Drug Use: never Adopted: No Caregiver/support person: No Lives independently: No Household members: spouse Marital status: service: No Current occupational status: retired Data Anesthesia Cardiac Studies: Echocardiogram 06/06/24 Sestamibi Stress Test (Cardiology) 04/06/23 Cardiac Event Monitor 06/10/24
--- NOTE | 2025-03-19 06:56 | P.HPUD_ITS ---
Surgery/Procedure H&P Update DATE OF PROCEDURE: March 19, 2025 DATE H&P PERFORMED: 03/17/25 H&P UPDATE INFORMATION: I have reviewed H&P completed within last 30 days, I have examined patient prior to procedure, No changes to prior documentation, H&P is in [facility] EMR on date indicated and Risks and benefits of the procedure reviewed PREOP DIAGNOSIS: Right knee osteoarthritis PLANNED PROCEDURE: Operation Date: 03/19/25 07:00 Proposed Procedures p RIGHT Nabeel Robot Total Knee Arthroplasty(Right) - Sheila Bynum MD Related Problem List Diagnoses (1) Primary osteoarthritis of right knee:
[2025-03-19] MEDS: ceFAZolin 2,000 mg SDV 2000 MG IVP ×2 (07:05→17:24)
[2025-03-19] MEDS: tranexamic acid 1,000 mg/10mL SDV 1000 MG IV (07:40)
[2025-03-19] MEDS: VANCOMYCIN ADD-Vantage 1,000 MG VIAL 1000 MG XX (08:16)
[2025-03-19] MEDS: ceFAZolin 1,000 mg SDV 2000 MG IRRIGATION (08:18)
[2025-03-19] MEDS: BUPivacaine 0.5% INJ 10 mL 20 ML INJECTION (08:30)
[2025-03-19] MEDS: BUPivacaine liposome 13.3 mg/mL SDV 20 mL 266 MG INJECTION (08:30)
--- NOTE | 2025-03-19 09:45 | PC.NURSE ---
Bruise on patient's right lower inner thigh noted before surgery
--- NOTE | 2025-03-19 10:14 | XR_ITS ---
WS: [id number] Right knee, AP and lateral views, 03/19/2025 Clinical Data: post op Comparison: AP both knees, right knee, 01/30/2025 Findings: There is a right knee arthroplasty. The components are in good position. There is postoperative air in the joint space. XR/XR knee RT 1-2V [id number] Impression: Right knee arthroplasty.
--- NOTE | 2025-03-19 10:25 | PM.OP ---
Operative Report Date of procedure: March 19, 2025 Pre-op diagnosis: Severe degenerative osteoarthritis of the right knee with varus deformity Post-op diagnosis: Severe degenerative osteoarthritis of the right knee with varus deformity Post-op findings: Varus deformity with complete denudement of cartilage. Severe degenerative osteoarthritis. Procedure done: Right total knee arthroplasty with Nabeel guidance Implants: The Danitza total knee system with a size 3 triathlon beaded cruciate retaining femur right, a triathlon titanium tibial component size 3 beaded, a triathlon X3 tibial bearing CS insert size 3 X 10 mm and a beaded triathlon titanium asymmetric patella size 32 x 10 mm Specimens removed/disposition: Bone, disposed of Pathology: None Surgeon: Sheila Bynum MD Pin Drafting Machine Tender: Tish Xavier, nurse practitioner, whose services were required for positioning, retraction, completion of the surgery, and closure Anesthesia: Spinal (With MAC, ASA 4) Estimated blood loss (mL): 70 Tourniquet time (min): 0 (Not utilized) IV fluids (mL): 1,300 Urine output (mL): 130 Complications: None Findings: Severe degenerative osteoarthritis of the right knee with complete denudement of cartilage, osteophyte formation, and varus deformity Condition: stable Disposition: PACU (Then admit to floor under observation status for postoperative rehabilitation and pain management) Brief History: This 74-year-old woman presented with complaints of severe right knee pain secondary to degenerative osteoarthritis. She had significant limitations in her activities of daily living. Previous nonoperative treatments included bracing as well as cortisone injection. The patient used a cane to assist with ambulation. She was unable to have relief from any of these nonoperative modalities. After discussion in the office, the patient wished to be scheduled for operative intervention. Risks and complications were discussed with her. Consents were signed and questions were answered. Procedure: The patient was brought to the operating theater, and after undergoing spinal anesthesia with MAC, ASA 4, the right lower extremity was prepped with Dura-Prep and draped in usual fashion following placement of a tourniquet high on the leg. The leg was then draped free.? Tourniquet was not elevated during the case.? A surgical pause was performed, and at the time of the surgical pause, we confirmed the site and side of surgery. Additionally, we confirmed the appropriate and timely administration of preoperative antibiotics, Ancef 2 g and Transexemic acid 1 g. An additional gram will be given postoperatively on the floor. The availability of equipment was confirmed, and the patient's identity was verbalized as well. Following the surgical pause, an incision was made centering over the patella continuing proximally and distally as necessary to allow access to the knee joint. Dissection continued through skin and soft tissues using a scalpel. Hemostasis was obtained using electrocautery. The skin incision was followed by a median parapatellar arthrotomy. The leg was extended and the patella was able to be displaced laterally.? Appropriate arrays and markers were placed in appropriate position for use of the Nabeel.? Preoperative planning had been accomplished and was discussed in detail with the [facility] territory account representative.? Intraoperative mapping of the femur and tibia was accomplished after the arrays were placed.? Internal markers were also placed.? Once we had accomplished the Nabeel mapping, we began the appropriate resections for placement of the prosthesis.? The plan was for a posterior cruciate retaining cementless left total knee arthroplasty. Once appropriate mapping had been accomplished, retraction was established using manual retraction by surgical technicians and also the [facility] leg positioner and retractors.? The knee was evaluated.? There was significant osteoarthritic change without significant varus or valgus deformity.? Appropriate bone resection was accomplished using the Nabeel.? The femur was sized to a size 3.? Following femoral cuts, attention was directed to the tibia.? Osteophytes were removed prior to this portion of the procedure.? We had performed a medial release at the beginning of the procedure to allow for placement of the array.? Proximal tibia was evaluated, and it was felt that appropriate size for the tibia was a size 3.? Tray was noted to fit nicely with good coverage.? Rim fit was accomplished with the size 3. A trial reduction was accomplished after osteophytes had been removed as well as the medial and lateral menisci.? We had removed the anterior cruciate ligament remnants at the beginning of the case and preserved the posterior cruciate ligament.? Trial reduction was accomplished with a size 3 femoral cruciate retaining component and a size 3 TriTanium tibial tray.? Trial was accomplished with a 10 mm insert, and with the [address], alignment was felt to be appropriate as well. Trial components were removed after the femur had been drilled.? Prior to removal of the tibial tray which had been pinned in position with appropriate rotation as determined by the Nabeel plan, we broached the tibia.? Subsequently, the 4 drill holes were made for the prosthetic component.? All trial components were removed, and the wound was irrigated.? Plans were made for insertion of the prosthetic components.? Prior to this, the patella was manually prepared.? After resection of the articular surface with the jigging system, it was measured and measured a 32 mm patella.? We resected approximately 9 mm of patella.? Patellar height was restored with the patellar component. Once again, the wound was irrigated.? The Tritanium tibia was impacted into position.? The beaded femur was then impacted into position in a cementless fashion. The CS tibial insert was placed prior to placement of the femoral component. The patella was pressed into position with a patellar clamp.? Exparel was injected about the components deep and superficially.? The knee was then copiously irrigated with betadine and saline and suctioned dry. Copious irrigation was accomplished following this. Attention was then directed to closure. Closure was accomplished with 0 Vicryl in the fascial tissues.? The suture line of 0 Vicryl was supplemented with strata fix, #1, with a running stitch from proximal to distal and a second running stitch from distal to proximal.? This was followed by Surgiflo and vancomycin powder.? Following this, a 2-0 Monocryl strata fix was used in the subcutaneous tissues, and the skin was closed with 3-0 Strata fix.? Care was taken to assure an excellent subcutaneous as well as skin closure.? A sterile dressing was then placed consisting of Dermabond Prineo, OpSite, ABD, sterile soft roll, and an Abdoul wrap including over the foot. The patient was returned the Recovery Room in a satisfactory condition. X-rays were obtained and reviewed there.? The patient will be discharged to the floor for postoperative rehabilitation and pain management. Related Problem List Diagnoses (1) Primary osteoarthritis of right knee:
--- NOTE | 2025-03-19 10:30 | ANE.PACU2 ---
Inpatient post-anesthesia follow up: Airway intact: Yes Vital signs: Temperature 97.0 F Pulse Rate 66 Respiratory Rate 16 Blood Pressure 105/59 Pulse Oximetry 97 Oxygen Delivery Me thod Room Air Oxygen Flow Rate Fraction of Inspir ed Oxygen Hydration adequate: Yes Nausea and vomiting: No Pain level: 1 Mental status: Baseline
[2025-03-19] MEDS: oxyCODONE 5 mg IR Tab/Cap PO ×3 (11:29→21:43)
[2025-03-19] MEDS: ondansetron 2 mg/ML SDV 2 mL 4 MG IVP (12:19)
[2025-03-19] MEDS: sodium chloride 0.9% 500 ML 999 ML IV (12:40)
[2025-03-19] MEDS: TRAMadol 50 mg Tablet PO (13:12)
--- NOTE | 2025-03-19 14:30 | SUR.EXTENDED ---
Patient still waiting for room availability on the floor. She is currently resting. She has family at bedside.
--- NOTE | 2025-03-19 16:57 | SUR.EXTENDED ---
Patient transported to 268 in bed with family at bedside. Patient awake and alert talking, mandujano in place. Dressings to surgical sight clean and dry. Nurse messi in room on arrival.
[2025-03-19] MEDS: apixaban 5 mg Tablet PO (17:18)
[2025-03-19] MEDS: calcium carbonate 500 mg Chew Tablet 1000 MG PO (17:18)
[2025-03-19] MEDS: docusate sodium 100 mg Capsule PO (17:18)
[2025-03-19] MEDS: iron polysaccharide complex 150 mg Capsule PO (17:19)
[2025-03-19] MEDS: sennosides-docusate Tablet 2 TAB PO (17:19)
[2025-03-19] MEDS: mupirocin oint 22 gm 1 APPLIC NASAL (17:19)
[2025-03-19] MEDS: chlorhexidine gluconate 0.12% Btl 473 mL 30 ML MUCOUS MEM ×3 (17:25→21:44)
[2025-03-19] MEDS: ipratropium-albuterol 3 mL Neb INHALATION (19:24)
[2025-03-19] MEDS: fenofibrate 145 mg Tablet PO (21:43)
[2025-03-19] MEDS: metoprolol succinate ER (24 HR) 25 mg Tablet PO (21:43)
[2025-03-19] MEDS: ATORVASTATIN 10 MG TABLET PO (21:44)
[2025-03-19] MEDS: CELEcoxib 200 mg Capsule PO (21:44)
[2025-03-19] MEDS: latanoprost 0.005% Op Soln 2.5 mL Btl 1 DROP EYE-BOTH (21:45)
[2025-03-20] VITALS (11 sets, daily range): BP systolic 110–153; BP diastolic 50–73; PULSE 71–88; RESP 16–18; TEMP 36.4–36.9; O2SAT 92–97
[2025-03-20] MEDS: acetaminophen 1,000 MG/100 ML PIGGYBACK 400 MG IV ×2 (01:27→08:30)
[2025-03-20] MEDS: ceFAZolin 2,000 mg SDV 2000 MG IVP ×2 (01:28→08:24)
[2025-03-20] MEDS: oxyCODONE 5 mg IR Tab/Cap PO ×3 (01:55→13:20)
[2025-03-20 05:37] LABS: Basophils # 0.1 10^3/uL (0.0-0.1); Basophils % 0.4 %; Eosinophils # 0.3 10^3/uL (0.0-0.8); Eosinophils % 1.7 %; Hematocrit 29.2 % (36-47); Lymphocytes # 1.8 10^3/uL (0.8-4.8); Mean Corpuscular HGB Conc 31.2 g/dL (30-55); Mean Corpuscular Hemoglobin 29.2 pg (27-33); Mean Corpuscular Volume 93.6 fl (85-98); Mean Platelet Volume 11.4 fL (7.4-10.4); Monocytes % 12.5 %; Neutrophils # 12.09 10^3/uL (1.8-7.7); Neutrophils % 74.1 %; Nucleated Red Blood Cells % 0 %; Platelet Count 250 10^3/cmm (157-399); Red Blood Count 3.12 10^6/uL (3.85-5.65); Red Cell Distribution Width 15.5 % (12.1-15.1); White Blood Count 16.31 10^3/uL (3.29-11.43)
[2025-03-20 05:57] LABS: Anion Gap 13.4 (5-19); Blood Urea Nitrogen 14 mg/dL (8-23); Calcium 8.3 mg/dL (8.5-10.5); Carbon Dioxide 22 mmol/L (22-29); Chloride 102 mmol/L (98-107); Creatinine Clr Calc Pharmacy 50.9414; Glucose 115 mg/dL (65-115); Osmolality Calculated 277 mOsm/kg (285-295); Potassium 4.4 mmol/L (3.5-5.1); Sodium 133 mmol/L (136-145)
[2025-03-20] MEDS: ipratropium-albuterol 3 mL Neb INHALATION ×2 (08:20→11:21)
[2025-03-20] MEDS: sennosides-docusate Tablet 2 TAB PO (08:22)
[2025-03-20] MEDS: losartan 50 mg Tablet PO (08:22)
[2025-03-20] MEDS: docusate sodium 100 mg Capsule PO (08:22)
[2025-03-20] MEDS: aspirin 325 mg EC Tablet PO (08:22)
[2025-03-20] MEDS: multivitamin therapeutic Tablet 1 TAB PO (08:23)
[2025-03-20] MEDS: iron polysaccharide complex 150 mg Capsule PO (08:23)
[2025-03-20] MEDS: cholecalciferol (vitamin D3) 1,000 unit Tablet 1000 UNIT PO (08:23)
[2025-03-20] MEDS: calcium carbonate 500 mg Chew Tablet 1000 MG PO (08:23)
[2025-03-20] MEDS: CELEcoxib 200 mg Capsule PO (08:24)
[2025-03-20] MEDS: apixaban 5 mg Tablet PO (08:31)
[2025-03-20] MEDS: chlorhexidine gluconate 0.12% Btl 473 mL 30 ML MUCOUS MEM (08:35)
[2025-03-20] MEDS: mupirocin oint 22 gm 1 APPLIC NASAL (08:36)
[2025-03-20] MEDS: ondansetron 2 mg/ML SDV 2 mL 4 MG IVP (09:36)
[2025-03-20] MEDS: HYDROcodone-acetaminophen 10-325 mg Tablet 1 TAB PO (15:23)
--- NOTE | 2025-03-20 15:31 | PM.DCS ---
Discharge Providers Date of Admission: 03/19/25 16:37 Date of Discharge: March 20, 2025 Attending Provider at Admission: Sheila Bynum MD Attending Provider at Discharge: Sheila Bynum MD Primary Care Provider: TRINI Bullock Diagnoses at Discharge Discharge Diagnosis (1) Primary osteoarthritis of right knee: Status: Acute (2) Status post total right knee replacement not using cement: Status: Acute Permanent problem details: Date of procedure: March 19, 2025 Diagnosis: Severe degenerative osteoarthritis of the right knee with varus deformity Procedure done: Right total knee arthroplasty with Nabeel guidance Implants: The Leondra music total knee system with a size 3 triathlon beaded cruciate retaining femur right, a triathlon titanium tibial component size 3 beaded, a triathlon X3 tibial bearing CS insert size 3 X 10 mm and a beaded triathlon titanium asymmetric patella size 32 x 10 mm Reason for Visit Reason for Visit: M17.11 Brief History: This 74-year-old woman presented with complaints of severe right knee pain secondary to degenerative osteoarthritis. She had significant limitations in her activities of daily living. Previous nonoperative treatments included bracing as well as cortisone injection. The patient used a cane to assist with ambulation. She was unable to have relief from any of these nonoperative modalities. After discussion in the office, the patient wished to be scheduled for operative intervention. Risks and complications were discussed with her. Consents were signed and questions were answered. Hospital Course Hospital Course This 71-year-old woman was admitted under observation status following same-day surgery for right total knee arthroplasty. The patient had some pain control issues, but with a change in medications, she will be discharged home on postop day 1. Large outer dressings were removed. The wound was benign. There was no evidence of DVT. She was neurologically intact. There was minimal bruising and no significant swelling. The patient was initially somewhat reluctant secondary to her pain management issues, but as noted, changing her medications resulted in better function and safety for home. Patient is in agreement with the plan. She will be discharged home to follow-up with me in the office. Physical Exam Const: COMMON NORMALS: no acute distress, average body habitus, patient oriented x3 and alert GENERAL APPEARANCE: cooperative and comfortable ORIENTATION/CONSCIOUSNESS: Yes awake HENMT: COMMON NORMALS: normocephalic and atraumatic HEAD & SCALP: normocephalic and atraumatic Eye: GENERAL EYE: appearance normal, both eyes and all related structures Chest: COMMONS NORMALS: normal inspection of the chest Resp: COMMON NORMALS: normal respiratory effort EFFORT & INSPECTION: Yes able to speak in complete sentences and Yes symmetric chest movement Extremity: RIGHT LOWER EXTREMITY: Yes knee joint (Large outer dressing is removed. No significant ecchymosis) Right knee: Yes inspection (No significant swelling), Yes palpation (Minimal tenderness) and Yes neurovascular exam (Intact distally with no evidence of DVT) Neuro: COMMON NORMALS: patient oriented x3 SENSORIUM/ORIENTATION: Yes alert Psych: COMMON NORMALS: mental status grossly normal APPEARANCE: Yes grossly normal ATTITUDE: Yes calm and Yes engaged ATTENTION/CONCENTRATION: Yes attention grossly intact Skin: COMMON NORMALS: no rashes or lesions noted GENERAL SKIN EXAM: no rashes or lesions noted Urinary Catheter Management: Rainey: Cath Placed During This Visit: yes, but has since been removed by the nurse Reason for Continuing Indwelling Catheter: Decision to DC Catheter Urinary Catheter Date of Insertion: 03/19/25 Urinary Catheter Time of Insertion: 07:25 Date Urinary Catheter Removed: 03/20/25 Time Urinary Catheter Discontinued: 06:45 Discharge Data Studies Completed and Pending Completed Studies During Hospitalization Category Date Time Status XR knee RT 1-2V 70069 Routine Exams 03/19/25 10:14 Completed Radiology Impressions Knee X-Ray 03/19/25 10:14 Impression: Right knee arthroplasty. Laboratory Results WBC 16.31 10^3/uL (3.29-11.43) H 03/20/25 04:50 RBC 3.12 10^6/uL (3.85-5.65) L 03/20/25 04:50 Hgb 9.10 g/dL (11.27-16.99) L 03/20/25 04:50 Hct 29.2 % (36-47) L 03/20/25 04:50 MCV 93.6 fl (85-98) 03/20/25 04:50 MCH 29.2 pg (27-33) 03/20/25 04:50 MCHC 31.2 g/dL (30-55) 03/20/25 04:50 RDW 15.5 % (12.1-15.1) H 03/20/25 04:50 Plt Count 250 10^3/cmm (157-399) 03/20/25 04:50 MPV 11.4 fL (7.4-10.4) H 03/20/25 04:50 Neut % (Auto) 74.1 % 03/20/25 04:50 Lymph % (Auto) 11.0 % 03/20/25 04:50 [place] % (Auto) 12.5 % 03/20/25 04:50 Eos % (Auto) 1.7 % 03/20/25 04:50 Baso % (Auto) 0.4 % 03/20/25 04:50 Neut # (Auto) 12.09 10^3/uL (1.8-7.7) H 03/20/25 04:50 Lymph # (Auto) 1.8 10^3/uL (0.8-4.8) 03/20/25 04:50 [place] # (Auto) 2.0 10^3/uL (0.2-0.9) H 03/20/25 04:50 Eos # (Auto) 0.3 10^3/uL (0.0-0.8) 03/20/25 04:50 Baso # (Auto) 0.1 10^3/uL (0.0-0.1) 03/20/25 04:50 Nucleated RBC % (auto) 0 % 03/20/25 04:50 Nucleated RBCs # 0.0 /100WBC 03/20/25 04:50 Sodium 133 mmol/L (136-145) L 03/20/25 04:50 Potassium 4.4 mmol/L (3.5-5.1) 03/20/25 04:50 Chloride 102 mmol/L (98-107) 03/20/25 04:50 Carbon Dioxide 22 mmol/L (22-29) 03/20/25 04:50 Anion Gap 13.4 (5-19) 03/20/25 04:50 BUN 14 mg/dL (8-23) 03/20/25 04:50 Creatinine 0.8 mg/dL (0.5-0.9) 03/20/25 04:50 GFR Calculation Not Reportable 03/20/25 04:50 Glucose 115 mg/dL (65-115) 03/20/25 04:50 Calculated Osmolality 277 mOsm/kg (285-295) L 03/20/25 04:50 Calcium 8.3 mg/dL (8.5-10.5) L 03/20/25 04:50 Vitals Last Vital Signs Temp 98.4 F 03/20/25 12:00 Pulse 86 03/20/25 15:14 Resp 16 03/20/25 15:14 BP 110/67 03/20/25 12:00 Pulse Ox 95 03/20/25 15:14 O2 Del Method Room Air 03/20/25 15:14 Discharge Plan Discharge Patient Disposition: Home Health Service Condition: Stable Prescriptions: New hydrocodone-acetaminophen 10-325 mg tablet 1 tab PO Q4H PRN (Reason: pain) 7 Days Qty: 40 0RF aspirin 325 mg Tablet,Delayed Release (Dr/Ec) 325 mg PO DAILY 30 Days Qty: 30 0RF gabapentin 300 mg Capsule 300 mg PO TID 30 Days Qty: 90 0RF celecoxib 200 mg Capsule 200 mg PO 1XD 30 Days Qty: 30 0RF ondansetron 4 mg tablet,disintegrating 4 mg PO Q6H PRN (Reason: nausea and vomiting) 7 Days Qty: 30 0RF Continued valsartan 160 mg tablet 160 mg PO DAILY Qty: 90 3RF latanoprost 0.005 % drops 1 drp ophthalmic (eye) BEDTIME Spiriva Respimat 2.5 mcg/actuation mist 2 puff inhalation DAILY 30 Days Qty: 4 2RF tramadol 50 mg tablet 50 mg PO BID PRN (Reason: pain) Qty: 20 0RF diclofenac sodium 1 % gel 4 g topical QID Qty: 100 0RF Rx Instructions: apply to single knee, ankle, foot; for foot includes sole/toes/top of foot (DME) right medial environmental service aide brace See Rx Instructions .Route .MEDSUPPLY Qty: 1 0RF Rx Instructions: As directed ergocalciferol (vitamin D2) [Vitamin D2] 1,250 mcg (50,000 unit) capsule See Rx Instructions .ROUTE .COMPLEX Qty: 12 3RF Dose Instruction: TAKE 1 CAPSULE WEEKLY Rx Instructions: TAKE 1 CAPSULE WEEKLY nitrofurantoin monohyd/m-cryst [Macrobid] 100 mg capsule 100 mg PO BID 7 Days Qty: 14 0RF Rx Instructions: must administer with a meal/food levalbuterol HCl 1.25 mg/0.5 mL solution for nebulization 1.25 mg inhalation Q4H PRN (Reason: Shortness Of Breath) Rx Instructions: pt needs xopenex due to afib fenofibrate nanocrystallized 145 mg tablet 145 mg PO BEDTIME Eliquis 5 mg tablet 5 mg PO BID Premarin 0.625 mg tablet 0.625 mg PO BEDTIME metoprolol succinate 25 mg tablet extended release 24 hr 25 mg PO BEDTIME pravastatin 40 mg tablet 40 mg PO BEDTIME Rx Instructions: TAKE 1 TABLET DAILY ProAir RespiClick 90 mcg/actuation aerosol powdr breath activated 1 inh inhalation QID Rx Instructions: USE 1 INHALATION EVERY 6 HOURS NEEDED FOR SHORTNESS OF BREATH OR WHEEZING esomeprazole magnesium [Nexium] 20 mg Capsule,Delayed Release(Dr/Ec) 20 mg PO DAILY Discharge Orders: Discharge Order (Routine); Ordered 03/20/25 Ordered By: Sheila Bynum Referrals: Sheila Bynum MD [Physician, Orthopedics] - 04/03/25 9:30 am Discharge Diet: Advance as tolerated and Usual diet Discharge Activity: Increase activity as tolerated, Limit activity as instructed, Use walker/crutches as instructed and As per PT/OT instructions Patient Instructions: Acute Wound Care (DC), Post Anesthesia Care Activity Restrictions/Additional Instructions: Weight-bear as tolerated. Work with physical therapy for gait training, range of motion, and strengthening. Ice and elevate right knee. You may shower, and get the dressing wet, but do not submerge the knee in water. If the dressing begins to leak or lift up from the skin down to the nonadhesive area, you may remove the dressing. Discharge Attestations Time Spent in Discharge Care*: greater than 30 min Specific Discharge Activities: educating and/or supporting family/caregiver, documenting/other paperwork and evaluating patient/reviewing data Quality Metrics Clinical Quality Measures [ No reported AMI, CVA or VTE this stay] Coding Level of Care Code Acute Code for Chg Fwd Diagnoses Primary osteoarthritis of right knee M17.11 Status post total right knee replacement not using cement Z96.651
== END 2025-03-20 17:40 | disposition home health service (06) ==
LOC: MEDSURG 16:37
PROVIDERS: Admitting Provider Specialist; PCP Registered Nurse; Visit Provider Specialist
PROC: 8E0Y0CZ Robotic Assisted Procedure of Lower Extremity, Open Approach (ICD-10-PCS; CPT 27447; principal; 2025-03-19 07:00)
DX: M17.11 Unilateral primary osteoarthritis, right knee (principal); M21.161 Varus deformity, not elsewhere classified, right knee; M94.8X8 Other specified disorders of cartilage, other site; Z79.01 Long term (current) use of anticoagulants; J45.909 Unspecified asthma, uncomplicated; I10 Essential (primary) hypertension; E78.5 Hyperlipidemia, unspecified; I48.20 Chronic atrial fibrillation, unspecified; I25.2 Old myocardial infarction; Z95.0 Presence of cardiac pacemaker; Z86.73 Personal history of transient ischemic attack (TIA), and cerebral infarction without residual deficits
CPT/HCPCS: 27447; 20985; 36415; 51702; 73560; 80048; 85025; 94640; 97110; 97116; 97165; 97530; A4216; C1776; G0378; J0131; J0666; J0690; J2371; J2405; J2704; J3010; J3370; J3490; J7030; J7040; J9999

== ENCOUNTER → 2025-04-03 09:20 | Outpatient (BNVA) | payer MEDICARE, OTHER, SELFPAY | PROVIDERS: PCP Registered Nurse; Visit Provider Nurse Practitioner | DX: Z98.890 Other specified postprocedural states (principal); Z96.651 Presence of right artificial knee joint | CPT/HCPCS: 99024 ==

== ENCOUNTER → 2025-04-21 11:06 | Outpatient (BNVA) | payer MEDICARE, OTHER, SELFPAY | PROVIDERS: PCP Registered Nurse; Visit Provider Internal Medicine Cardiovascular Disease | DX: Z45.018 Encounter for adjustment and management of other part of cardiac pacemaker (principal) | CPT/HCPCS: 93296 ==

== ENCOUNTER → 2025-04-27 08:55 | Outpatient (BNVA) | payer MEDICARE, OTHER, SELFPAY | PROVIDERS: PCP Registered Nurse; Visit Provider Nurse Practitioner | DX: Z98.890 Other specified postprocedural states (principal); Z96.651 Presence of right artificial knee joint | CPT/HCPCS: 73560; 73565; 99024 ==

== ENCOUNTER → 2025-06-12 09:19 | Outpatient (BNVA) | payer MEDICARE, OTHER, SELFPAY | PROVIDERS: PCP Registered Nurse; Visit Provider Nurse Practitioner | DX: M19.011 Primary osteoarthritis, right shoulder (principal); M19.012 Primary osteoarthritis, left shoulder | CPT/HCPCS: 20610; 73030; 99214; J1100; J2795; J3301; J9999 ==

== ENCOUNTER 2025-06-16 09:15 | Outpatient (CLI) | payer MEDICARE, OTHER, SELFPAY ==
--- NOTE | 2025-06-16 09:15 | USCV_ITS ---
Hyacinth Hill Age: 74 Gender: F : 1950 Exam Date: 06/16/2025 09:27 Ordering Phys: Em Santo NP Technologist: Exam [place] [facility] [place]: sob cp BP: 128 / 61 HR: 71 Rhythm: Sinus Technical Quality: Adequate MEASUREMENTS (Male / Female) Normal Values 2D ECHO LV Diastolic Diameter PLAX 4.2 cm 4.2 - 5.9 / 3.9 - 5.3 cm IVS Diastolic Thickness 1.4 cm 0.6 - 1.0 / 0.6 - 0.9 cm IVS Systolic Thickness 1.5 cm LVPW Diastolic Thickness 1.1 cm 0.6 - 1.0 / 0.6 - 0.9 cm LVPW Systolic Thickness 1.3 cm LVOT Diameter 2.1 cm LV Ejection Fraction 2D Teich 66.5 % LV Ejection Fraction MOD 4C 59.4 % LV Ejection Fraction MOD 2C 63.9 % LV Ejection Fraction 2C AL 64.1 % LA Diameter 3.4 cm RA Systolic Volume 4C AL 20.8 ml RA Systolic Volume 4C MOD 20.8 ml Aorta at Sinotubular Diameter 3.2 cm IVC Diameter 1.6 cm M-MODE LA Ao Ratio MM 1.6 AV Cusp Separation MM 2.3 cm DOPPLER AV Peak Velocity 348.0 cm/s AV Area Cont Eq vti 3.1 cm squared AV Area Cont Eq pk 2.4 cm squared MV Peak Velocity 117.0 cm/s MV Area PHT 3.1 cm squared Mitral E to A Ratio 0.7 TR Peak Velocity 264.0 cm/s TR Peak Gradient 27.9 mmHg TV Peak E Velocity 94.0 cm/s PV Peak Velocity 107.0 cm/s FINDINGS Left Ventricle Normal left ventricular size and systolic function, EF 63%. Mild left ventricular hypertrophy. Normal diastolic function. Right Ventricle Normal right ventricular size and systolic function. Normal right ventricular systolic pressure. Right Atrium Normal right atrial size. Left Atrium Normal left atrial size. Mitral Valve Moderate mitral annular calcification. No mitral valve stenosis. No mitral valve regurgitation. Aortic Valve Aortic valve not well visualized. Mild aortic valve calcification. No aortic valve stenosis. Mild aortic valve regurgitation. Tricuspid Valve Trace tricuspid valve regurgitation. Pulmonic Valve No pulmonary valve stenosis. No pulmonary valve regurgitation. Pericardium Small pericardial effusion. Aorta Normal size aortic root and proximal ascending aorta. IVC Normal inferior vena cava. CONCLUSIONS 1. Normal left ventricular cavity size and systolic function, EF 63%. Normal left ventricular diastolic function 2. Mild concentric left ventricular hypertrophy 3. Calcified aortic valve without stenosis and mild aortic valve regurgitation 4. Small pericardial effusion Darrion Carlisle MD, FACC (Electronically Signed) Final Date: 17 June 2025 21:06 S
== END 2025-06-16 09:16 | disposition home or self-care (01) ==
LOC: RAD 09:16
PROVIDERS: PCP Registered Nurse; Visit Provider Nurse Practitioner Family
DX: I35.1 Nonrheumatic aortic (valve) insufficiency (principal); I42.1 Obstructive hypertrophic cardiomyopathy; I34.81 Nonrheumatic mitral (valve) annulus calcification; I35.8 Other nonrheumatic aortic valve disorders; I31.39 Other pericardial effusion (noninflammatory)
CPT/HCPCS: 93306

== ENCOUNTER → 2025-06-29 08:51 | Outpatient (BNVA) | payer MEDICARE, OTHER, SELFPAY | PROVIDERS: PCP Registered Nurse; Visit Provider Nurse Practitioner | DX: Z96.651 Presence of right artificial knee joint (principal); Z98.890 Other specified postprocedural states | CPT/HCPCS: 99213 ==

== ENCOUNTER 2025-09-14 07:37 | Outpatient (CLI) | payer MEDICARE, OTHER, SELFPAY ==
--- NOTE | 2025-09-14 07:45 | USCV_ITS ---
Hyacinth Hill Age: 75 Gender: F : 1950 Exam Date: 09/14/2025 07:59 Ordering Phys: Jeanne Duncan Technologist: Exam Location: [facility] Indication: Reassess percardial effusion BP: 120 / 70 HR: Rhythm: Sinus Technical Quality: Adequate MEASUREMENTS (Male / Female) Normal Values 2D ECHO LV Diastolic Diameter PLAX 4.9 cm 4.2 - 5.9 / 3.9 - 5.3 cm IVS Diastolic Thickness 1.2 cm 0.6 - 1.0 / 0.6 - 0.9 cm IVS Systolic Thickness 1.5 cm LVPW Diastolic Thickness 1.1 cm 0.6 - 1.0 / 0.6 - 0.9 cm LVPW Systolic Thickness 1.4 cm LVOT Diameter 1.9 cm LV Ejection Fraction 2D Teich 64.6 % LV Ejection Fraction MOD 4C 64.5 % LV Ejection Fraction MOD 2C 65.9 % LV Ejection Fraction 2C AL 63.5 % LA Diameter 3.4 cm RA Systolic Volume 4C AL 26.6 ml RA Systolic Volume 4C MOD 25.4 ml Aorta at Sinotubular Diameter 2.8 cm IVC Diameter 1.1 cm M-MODE LA Ao Ratio MM 1.2 AV Cusp Separation MM 2.3 cm FINDINGS Left Ventricle Normal left ventricular size, systolic function and wall thickness, with no regional wall motion abnormalities. Normal left ventricular size and systolic function, EF 65%. Right Ventricle Normal right ventricular size and systolic function. Right Atrium Normal right atrial size. Left Atrium Normal left atrial size. IA Septum Mitral Valve Aortic Valve Tricuspid Valve Pulmonic Valve Pericardium Trace localized pericardial effusion over anterior surface Aorta Normal size aortic root and proximal ascending aorta. IVC Normal inferior vena cava. CONCLUSIONS Limited echo to assess pericardial effusion Normal LV size and LV systolic function appear, LVEF normal 65%. There is a trace localized pericardial effusion over anterior surface. Rory Thornton MD (Electronically Signed) Final Date: 14 September 2025 14:10 S
== END 2025-09-14 07:38 | disposition home or self-care (01) ==
LOC: RAD 07:38
PROVIDERS: PCP Registered Nurse; Visit Provider Nurse Practitioner Family
DX: I31.39 Other pericardial effusion (noninflammatory) (principal)
CPT/HCPCS: 93308

== ENCOUNTER → 2025-09-22 14:24 | Outpatient (BNVA) | payer MEDICARE, OTHER, SELFPAY | PROVIDERS: PCP Registered Nurse; Visit Provider Internal Medicine | DX: I48.91 Unspecified atrial fibrillation (principal); Z79.01 Long term (current) use of anticoagulants; Z86.73 Personal history of transient ischemic attack (TIA), and cerebral infarction without residual deficits; I25.2 Old myocardial infarction | CPT/HCPCS: 99214 ==

== ENCOUNTER → 2025-09-25 10:31 | Outpatient (BNVA) | payer MEDICARE, OTHER, SELFPAY | PROVIDERS: PCP Registered Nurse; Visit Provider Nurse Practitioner | DX: M19.011 Primary osteoarthritis, right shoulder (principal); M19.012 Primary osteoarthritis, left shoulder | CPT/HCPCS: 20610; J1100; J2795; J3301; J9999 ==

== ENCOUNTER → 2025-10-21 13:20 | Outpatient (BNVA) | payer MEDICARE, OTHER, SELFPAY | PROVIDERS: PCP Registered Nurse; Visit Provider Internal Medicine | DX: Z45.018 Encounter for adjustment and management of other part of cardiac pacemaker (principal) | CPT/HCPCS: 93296 ==